=== PATIENT | female | born 1950 | race Caucasian/White ===

== ENCOUNTER 2021-10-25 00:55 | Day surgery (SDC) | payer OTHER, SELFPAY ==
[2021-10-20 12:51] VITALS: BMI 23.6
--- NOTE | 2021-10-22 13:11 | PM.HPGS ---
History of Present Illness History of Present Illness Consent: Risks, benefits, and alternatives have been discussed and questions answered. Patient agrees to proceed with procedure. Chief complaint: GERD Narrative: Celeste Doll is a 70 year old female with chronic and refractory acid reflux symptoms. She had heartburn and for years she would take Cimetidine which helped. Recently it became ineffective. She took Prilosec twice a day for 2 weeks and was okay until she stopped taking it. now she is back on it. her symptoms became worse when she began taking and antifungal medicine 4 months ago. At 1 time an ENT physician told her that she was getting laryngal spasms. She states that sometimes if she is swallowing something or has saliva she will feel her throat closing up. Review of Systems Review of Systems: All systems reviewed & are unremarkable except as noted in HPI and below PMFSH Past Medical History Medical History Allergies Anxiety Arthritis Cancer GERD (gastroesophageal reflux disease) Headache IBS (irritable bowel syndrome) Lichen sclerosus Myopic degeneration Surgical History Surgical History History of tonsillectomy X2 Hx of removal of ovary Left Family History Family History Father Diabetes mellitus Hypertension Depression Mother Pancreatic cancer Skin cancer Bladder cancer Sibling Hypertension Grandparent Pancreatic cancer Diabetes mellitus Hypertension Heart disease Social History Social History Smoking status: Never smoker Alcohol intake: never Substance use: never Substance use type: does not use Living arrangements: with family Meds Home Medications and Allergies Home Medications Medication Instructions Recorded Confirmed Type alprazolam 0.25 mg tablet 0.25 mg PO DAILY PRN 06/11/21 10/20/21 History biotin 1 mg capsule 1 mg PO DAILY 06/11/21 10/20/21 History calcium carbonate 600 mg-vitamin 1 cap PO DAILY 06/11/21 10/20/21 History D3 12.5 mcg (500 unit) capsule clobetasol 0.05 % topical cream 1 applic TOPICAL DAILY 06/11/21 10/20/21 History docusate sodium 100 mg capsule 100 mg PO DAILY 06/11/21 10/20/21 History duloxetine 60 mg capsule,delayed 60 mg PO DAILY 06/11/21 10/20/21 History release fluticasone propionate 50 2 spray INTRANASAL DAILY #16 g 06/11/21 10/20/21 Rx mcg/actuation nasal spray,suspension ibuprofen 200 mg tablet 200 mg PO Q6H PRN 06/11/21 10/20/21 History ketotifen fumarate 0.025 % (0.035 1 drp EACH EYE BID 06/11/21 10/20/21 History %) eye drops lactobacillus combination no.4 3 3,000 mmu cells PO DAILY 06/11/21 10/20/21 History billion cell capsule multivitamin 1 tablet PO DAILY 06/11/21 10/20/21 History omega-3 fatty acids 1,000 mg 1,000 mg PO DAILY 06/11/21 10/20/21 History capsule psyllium husk 0.4 gram capsule 0.4 g PO DAILY 06/11/21 10/20/21 History triamcinolone acetonide 0.1 % 1 applic TOPICAL DAILY PRN g 06/11/21 10/20/21 History topical cream omeprazole magnesium 20 mg 20 mg PO DAILY 10/15/21 10/20/21 History tablet,delayed release terazosin 1 mg capsule 1 mg PO DAILY 10/15/21 10/20/21 History terbinafine HCl 250 mg PO DAILY 10/20/21 10/20/21 History omeprazole 20 mg PO DAILY 10/25/21 10/25/21 History Allergies Allergy/AdvReac Type Severity Reaction Status Date / Time Penicillins Allergy Itchy Verified 10/20/21 12:45 swollen throat Sulfa (Sulfonamide Allergy Rash Verified 10/20/21 12:45 Antibiotics) Exam Const: General: alert Orientation/consciousness: patient oriented x3 Resp: Auscultation: clear to auscultation bilaterally Cardio: Rhythm: regular rhythm GI: GI Palp: Yes Soft to palpation and No Tenderness to palpation present (GI) Neuro: G
[2021-10-25 07:53] VITALS: BMI 22.8
[2021-10-25] MEDS: LACTATED RINGERS 1,000 ML 150 ML IV CONT (08:06)
--- NOTE | 2021-10-25 08:08 | WPDANESEPPF ---
Anes - Initial Pre Proc Eval Procedure: Operation Date: 10/25/21 09:00 Proposed Procedures p Esophagogastroduodenoscopy - Heriberto Goncalves MD Date/Time: 10/25/21 08:08 Surgeon: Heriberto Goncalves MD Pre Op Diagnosis: GERD Patient Data Age: 70 Gender: F Height: 1.52 m Weight: 53 kg Allergies Allergy/AdvReac Type Severity Reaction Status Date / Time Penicillins Allergy Itchy Verified 10/25/21 07:53 swollen throat Sulfa (Sulfonamide Allergy Rash Verified 10/25/21 07:53 Antibiotics) Home Medications Medication Instructions Recorded Confirmed Type alprazolam 0.25 mg tablet 0.25 mg PO DAILY PRN 06/11/21 10/20/21 History biotin 1 mg capsule 1 mg PO DAILY 06/11/21 10/20/21 History calcium carbonate 600 mg-vitamin 1 cap PO DAILY 06/11/21 10/20/21 History D3 12.5 mcg (500 unit) capsule clobetasol 0.05 % topical cream 1 applic TOPICAL DAILY 06/11/21 10/20/21 History docusate sodium 100 mg capsule 100 mg PO DAILY 06/11/21 10/20/21 History duloxetine 60 mg capsule,delayed 60 mg PO DAILY 06/11/21 10/20/21 History release fluticasone propionate 50 2 spray INTRANASAL DAILY #16 g 06/11/21 10/20/21 Rx mcg/actuation nasal spray,suspension ibuprofen 200 mg tablet 200 mg PO Q6H PRN 06/11/21 10/20/21 History ketotifen fumarate 0.025 % (0.035 1 drp EACH EYE BID 06/11/21 10/20/21 History %) eye drops lactobacillus combination no.4 3 3,000 mmu cells PO DAILY 06/11/21 10/20/21 History billion cell capsule multivitamin 1 tablet PO DAILY 06/11/21 10/20/21 History omega-3 fatty acids 1,000 mg 1,000 mg PO DAILY 06/11/21 10/20/21 History capsule psyllium husk 0.4 gram capsule 0.4 g PO DAILY 06/11/21 10/20/21 History triamcinolone acetonide 0.1 % 1 applic TOPICAL DAILY PRN g 06/11/21 10/20/21 History topical cream omeprazole magnesium 20 mg 20 mg PO DAILY 10/15/21 10/20/21 History tablet,delayed release terazosin 1 mg capsule 1 mg PO DAILY 10/15/21 10/20/21 History terbinafine HCl 250 mg PO DAILY 10/20/21 10/20/21 History omeprazole 20 mg PO DAILY 10/25/21 10/25/21 History Patient hx anesthesia problems: none Family hx anesthesia problems: none Results Review: All pre-operative results and documents have been reviewed as part of the pre-operative evaluation. [facility] Past Medical History Medical History Allergies Anxiety Arthritis Cancer GERD (gastroesophageal reflux disease) Headache IBS (irritable bowel syndrome) Lichen sclerosus Myopic degeneration Surgical History Surgical History History of tonsillectomy X2 Hx of removal of ovary Left Family History Family History Father Diabetes mellitus Hypertension Depression Mother Pancreatic cancer Skin cancer Bladder cancer Sibling Hypertension Grandparent Pancreatic cancer Diabetes mellitus Hypertension Heart disease Social History Social History Smoking status: Never smoker Alcohol intake: never Substance use: never Substance use type: does not use Living arrangements: with family Anes - Eval Final PreProcedure Day of Procedure 10/25/21 08:08 Patient weight: normal Heart: regular rate and rhythm Lungs: clear to auscultation Airway: Mallampati scale class II Neurological: alert and oriented Last oral intake: >/= 8 hours ASA classification: II Emergent: no Anesthetic plan: proceed Anesthesia type and monitoring: general GIVS and standard monitoring Results Review: All pre-operative results and documents have been reviewed as part of the pre-operative evaluation. Informed Consent: The patient's anesthetic plan and its attendant risks and benefits were discussed with the patient/family/POA. Questions were solicited and answers provided to the satisfaction of the patient/family/
[2021-10-25] MEDS: BENZOCAINE (*SP) 60 ML SPRAY CAN (HURRICAINE) 1 SPRAY MUCOUS MEM (08:20)
[2021-10-25 08:31] VITALS: BP 152/80; PULSE 83; RESP 24; O2SAT 100
[2021-10-25 08:41] VITALS: BP 148/88; PULSE 70; RESP 20; O2SAT 100
[2021-10-25 08:51] VITALS: BP 164/81; PULSE 78; RESP 23; O2SAT 100
== END 2021-10-25 09:25 | disposition home or self-care (01) ==
PROVIDERS: PCP Internal Medicine; Visit Provider Internal Medicine Gastroenterology
PROC: 0DJ08ZZ Inspection of Upper Intestinal Tract, Via Natural or Artificial Opening Endoscopic (ICD-10-PCS; CPT 43235; principal; 2021-10-25 09:00)
DX: K21.9 Gastro-esophageal reflux disease without esophagitis (principal); K58.9 Irritable bowel syndrome, unspecified; F41.9 Anxiety disorder, unspecified; M19.90 Unspecified osteoarthritis, unspecified site
CPT/HCPCS: 43239; 87081; J2704; J7120

== ENCOUNTER → 2022-07-25 09:12 | Outpatient (CLI) | payer OTHER, SELFPAY ==
--- NOTE | ~2022-07-25 | DEXA_ITS ---
Bone Density Report Name: SAHHBAZ CAMPUZANO Age: 71 Sex: Female Ethnicity: White Date of : 1950 Indication: postmenopausal; screening for osteoporosis; Referring Provider: Gerda Ruano Study: Bone densitometry was performed. Exam Date: July 25, 2022 Accession number: [id number] Bone Density: Region BMD T-score Z-score Classification AP Spine (L1-L4) 0.912 -1.2 1.0 Osteopenia Femoral Neck (Left) 0.636 -1.9 0.0 Osteopenia Total Hip (Left) 0.794 -1.2 0.4 Osteopenia Femoral Neck (Right) 0.673 -1.6 0.4 Osteopenia Total Hip (Right) 0.798 -1.2 0.5 Osteopenia Total Hip Mean 0.796 -1.2 0.5 Osteopenia World Health Organization criteria for BMD impression classify patients as: Normal (T-score at or above -1.0), Osteopenia (T-score between -1.0 and -2.5), or Osteoporosis (T-score at or below -2.5). 10-year Fracture Risk(1): Major Osteoporotic Fracture 11% Hip Fracture 2.4% Reported Risk Factors: [place] (), Neck BMD=0.636, BMI=23.5 (1) FRAX(R) Version 3.08. Fracture probability calculated for an untreated patient. Fracture probability may be lower if the patient has received treatment. Clinical Information Provided by Patient: Has used the following medications: Calcium, vit D included in Calcium, MTV Patient maximum height was 61 Menopause Age: 51 Drinks caffeinated beverages Onset of menses at age 12 Number of children 0 Missed period for more than 6 months in a row Impression: The patient has low bone mass, based on the Left Femoral Neck T-score. The patient has an estimated ten-year risk of hip fracture of 2.4% and an estimated ten-year risk of major fracture of 11%, based on the WHO FRAX algorithm. Discussion: BONE DENSITY IS LOW AT ONE OR MORE SKELETAL SITES. This patient's lowest T-score is low at one or more skeletal sites. It meets the World Health Organization's (WHO) criteria for ?low bone mass? (T-score between -1.0 and -2.5). The patient's 10-year risk of fracture as calculated by FRAX is less than the threshold where pharmacological therapy is recommended by the National Osteoporosis Foundation (NOF). However, all treatment decisions require clinical judgment and consideration of individual patient factors, including patient preferences, comorbidities, previous drug use, risk factors not captured in the FRAX model (e.g., frailty, falls, vitamin D deficiency, increased bone turnover, interval significant decline in bone density) and possible under or overestimation of fracture risk by FRAX. The patient should follow a healthful lifestyle (good nutrition with adequate calcium and vitamin D, and appropriate weight-bearing exercise). Follow-Up: Consider repeating this study in 2 to 3 years to reassess this patient's status, or sooner if there is some new clinical indica
== END ==
PROVIDERS: PCP Internal Medicine; Visit Provider Nurse Practitioner
DX: Z78.0 Asymptomatic menopausal state (principal); M85.89 Other specified disorders of bone density and structure, multiple sites
CPT/HCPCS: 77080

== ENCOUNTER 2023-09-28 08:22 | Outpatient (CLI) | payer OTHER, SELFPAY ==
[2023-09-28 20:59] LABS: Immunoglobulin M 28 mg/dL (40-230)
[2023-09-28 21:58] LABS: Vitamin D 25 Hydroxy 35.6 ng/mL
== END 2023-09-28 08:23 | disposition home or self-care (01) ==
LOC: ANHGOSHLAB 08:24
PROVIDERS: Clinical Nurse Specialist; PCP Internal Medicine; Visit Provider Internal Medicine
DX: R06.02 Shortness of breath (principal); I42.0 Dilated cardiomyopathy; R73.03 Prediabetes; E55.9 Vitamin D deficiency, unspecified
CPT/HCPCS: 36415; 82306; 82784; 84443

== ENCOUNTER 2023-10-03 09:07 | Outpatient (CLI) | payer OTHER, SELFPAY ==
--- NOTE | 2023-10-09 17:38 | WPDHOMESLEEP ---
Sleep Study - Home Unattended Date of Study: 10/03/23 Ordering Provider: Jonathan Camejo DO Interpreting Provider: Emeli Sheehan DO Home Sleep Study Type: Watch PAT Height: 1.52 m Weight: 53.07 kg Body Mass Index: 22.8 Neck Circumference (inches): 12 Fletcher: 6 Reason for Sleep Study Snoring, nocturnal gasping Sleep History The patient is a 72-year-old female with hypertension, congestive heart failure, GERD, anxiety, depression, seasonal allergies, irritable bowel syndrome and lichen sclerosis that had a sleep study ordered by her primary care physician for evaluation of sleep apnea. The patient occasionally awakens from sleep short of breath. She occasionally awakens at night with heartburn, belching or cough. She frequently snores and is frequently loud enough that others complain. She constantly has trouble sleeping when she has a cold. She occasionally wakes up gasping for air throughout the night. She occasionally has breathing problems at night observed by herself or others. She rarely sweats excessively at night. She occasionally has heart palpitations or irregular heartbeats during the night. She occasionally falls asleep during the day but never while driving. She occasionally experiences loss of muscle tone when extremely emotional. She occasionally has trouble at school or work due to sleepiness. She occasionally feels unable to move 1 waking up or falling asleep. She rarely experiences vivid dreamlike scenes upon awakening or falling asleep. She denies feeling afraid of going to sleep. He occasionally has nightmares and occasionally remembers her dreams. She constantly has thoughts racing through her mind. She occasionally feels sad or depressed. She constantly has anxiety. She frequently has muscular tension. She occasionally notices parts of her body jerk. She rarely kicks during the night. She occasionally has crawling and aching feelings in her legs but rarely has leg pain during the night. She occasionally grinds her teeth during sleep but rarely awakens with morning jaw pain. She occasionally is bothered by pain during the day and occasionally awakened by pain during the night. She frequently wakes up feeling stiff in the morning. She frequently wakes up with sore or achy muscles. She frequently wakes up with pain in the neck, spine and other joints. She goes to bed at 9:00 p.m. on both weekdays and weekends. It takes anywhere from 30 minutes up to several hours for her to fall asleep. She wakes up twice throughout the night to urinate and is able to fall back asleep within 15-20 minutes. She wakes up at 6:15 a.m. on both weekdays and weekends. She typically gets 6-7 hours of sleep per night. She will stay in bed for 15 minutes after waking up in the morning. She currently lives with her . She denies consuming any caffeinated beverages within 2 hours of bedtime. She denies engaging in physical exercise before bedtime. She will watch television before falling asleep. She will occasionally take naps in the afternoon or the evening and they are refreshing. She denies consuming any caffeinated beverages throughout the day. She denies tobacco, alcohol and recreational drug use. [facility] Past Medical History Medical History Allergies Anxiety Arthritis Cancer Dilated cardiomyopathy GERD (gastroesophageal reflux disease) Headache IBS (irritable bowel syndrome) Left bundle branch block Lichen sclerosus Myopic degeneration Surgical History Surgical History History of tonsillectomy X2 Hx of removal of ovary Left Family History Family History Father Diabetes mellitus Hypertension Depression Macular degeneration Mother Pancreatic cancer Skin cancer Bladder cancer Sibling Hypertension Grandparent
[2023-10-09 17:39] VITALS: BMI 22.8
== END 2023-10-05 09:14 | disposition home or self-care (01) ==
LOC: ANHCSM 09:31
PROVIDERS: PCP Internal Medicine; Visit Provider Internal Medicine
DX: R06.81 Apnea, not elsewhere classified (principal); I42.0 Dilated cardiomyopathy; R06.83 Snoring
CPT/HCPCS: 95800

== ENCOUNTER 2024-01-29 08:16 | Outpatient (CLI) | payer OTHER, SELFPAY ==
--- NOTE | ~2024-01-29 | CT_ITS ---
EXAMINATION:CT diagnostic chest wo con DATE: 01/29/2024 08:39 INDICATION: Abnormal chest radiograph. TECHNIQUE: Computed tomography (CT) of the chest was performed without intravenous contrast. Automate d exposure control and iterative reconstruction technique were employed. The dose-length product (DLP ) was 153.40 mGy-cm. COMPARISON: None. FINDINGS: There is mild scarring at the lung apices. There is mild atelectasis bilaterally. There is marked elevation of left hemidiaphragm. No pleural effusion. The heart size is normal. There is a lef t chest pacer with leads in right atrium, right ventricle, and coronary sinus. No pericardial effusio n. There are no pathologically enlarged lymph nodes. There is moderate thoracic spondylosis. IMPRESSION: 1. Marketed elevation of left hemidiaphragm and mild bilateral atelectasis. Reviewed, dictated and finalized at location A.
== END 2024-01-29 08:17 ==
LOC: GOSHIMG 08:17
PROVIDERS: PCP Internal Medicine; Visit Provider Nurse Practitioner
DX: R91.8 Other nonspecific abnormal finding of lung field (principal); R93.89 Abnormal findings on diagnostic imaging of other specified body structures
CPT/HCPCS: 71250

== ENCOUNTER 2024-02-29 13:33 | Outpatient (CLI) | payer OTHER, SELFPAY ==
--- NOTE | ~2024-02-29 | XR_ITS ---
EXAMINATION: XR sniff test with CXR2V DATE: 02/29/2024 14:15 INDICATION: Disorders of diaphragm. TECHNIQUE: 2 views of the chest were obtained. Fluoroscopy of the chest was performed during normal r espiration, deep respiration, and forceful sniffing. 156 fluoroscopic images were obtained. Fluorosco py exposure time was 0.5 minutes. COMPARISON: Chest CT 01/29/2024 FINDINGS: CHEST TWO VIEWS: There is marked elevation of left hemidiaphragm. No pneumonia, pleural effusion, or pneumothorax. The heart size is normal. There is a left chest pacer with leads in right atrium, right ventricle, and coronary sinus. CHEST FLUORO: There is marked elevation of left hemidiaphragm. The left diaphragm does not move with respiration. IMPRESSION: 1. Paralysis of left hemidiaphragm. Reviewed, dictated and finalized at location A.
== END 2024-02-29 13:34 | disposition home or self-care (01) ==
PROVIDERS: PCP Internal Medicine; Visit Provider Nurse Practitioner
DX: J98.6 Disorders of diaphragm (principal)
CPT/HCPCS: 71046; 76000

== ENCOUNTER 2024-04-08 03:23 | Emergency (ER) | payer OTHER, SELFPAY ==
--- NOTE | ~2024-04-08 | XR_ITS ---
Portable chest x-ray Comparison: None Clinical History: Chest pain Findings: Lungs are clear, without focal consolidation or pleural effusion. Elevation of the left he midiaphragm noted. Cardiomediastinal silhouette is unremarkable, with pacemaker device. Bones and so ft tissues are unremarkable. Impression: Clear lungs. Elevated left hemidiaphragm. Pacemaker device. Reviewed, dictated and finalized at location . Impression: Clear lungs. Elevated left hemidiaphragm. Pacemaker device.
--- NOTE | ~2024-04-08 | XR_ITS ---
Supine and upright views of the abdomen Clinical history: Abdominal fullness Findings: Bowel gas pattern is nonspecific. No evidence for obstruction or free air. No abnormal mass lesion or calcification is seen. Osseous structures are intact. Impression: Nonspecific bowel gas pattern. Reviewed, dictated and finalized at [facility]. Impression: Nonspecific bowel gas pattern.
[2024-04-08 03:26] VITALS: BP 146/69; PULSE 96; RESP 25; TEMP 37.8; O2SAT 98
--- NOTE | 2024-04-08 03:30 | ECG_ITS ---
Test Date: 2024-04-08 03:33:34 Measurements Intervals [place] Rate: 96 P: 43 MN: 134 QRS: -43 QRSD: 166 T: 119 QT: 385 QTc: 487 Interpretive Statements ATRIAL SENSE- ELECTRONIC VENTRICULAR PACEMAKER BASELINE ARTIFACT- II, III, AVR, AVL, AVF, V1-V6 NO FURTHER INTERPRETATION IS POSSIBLE ATYPICAL ECG No previous ECG available for comparison Electronically Signed On 04-08-2024 08:34:12 CDT by Coy Zhao D.O.
[2024-04-08 03:31] VITALS: TEMP 37.1
[2024-04-08 03:41] LABS: Basophils Percent Auto 0.3 % (0.2-1.2); Eosinophils Absolute Auto 0.3 K/mm3 (0-0.3); Eosinophils Percent Auto 1.9 % (0-4.4); Hematocrit 37.8 % (37.0-47.0); Hemoglobin 12.4 g/dL (12.0-15.0); Immature Granulocyte Absolute 0.04 K/mm3 (0.00-0.031); Immature Granulocyte Percent A 0.3 % (0-0.5); Lymphocytes Absolute Auto 1.24 K/mm3 (0.9-3.2); Lymphocytes Percent Auto 9.2 % (18.3-44.2); Mean Corpuscular HGB Conc 32.8 g/dl (32-36); Mean Corpuscular Hemoglobin 28.6 pg (26-34); Mean Corpuscular Volume 87.1 fl (80-100); Mean Platelet Volume 9.6 fl (7.4-10.4); Monocytes Absolute Auto 1.2 K/mm3 (0.1-0.6); Monocytes Percent Auto 8.8 % (2.6-8.5); Neutrophils Absolute Auto 10.7 K/mm3 (1.3-6.7); Neutrophils Percent Auto 79.5 % (45.5-73.1); Platelet Count Result 268 k/mm3 (150-375); Red Blood Count 4.34 M/mm3 (4.2-5.4); White Blood Count 13.4 K/mm3 (4.5-10.0)
[2024-04-08 04:17] LABS: Alanine Aminotransferase 16 U/L (6-35); Albumin Level 4.1 g/dL (3.5-5.1); Alkaline Phosphatase 65 U/L (38-126); Anion Gap 10 mmol/L (4-12); Aspartate Amino Transferase 21 U/L (14-36); Bilirubin,Total 0.5 mg/dL (0.2-1.3); Blood Urea Nitrogen 14 mg/dL (7-17); Calcium 9.1 mg/dL (8.4-10.2); Carbon Dioxide 26 mmol/L (22-30); Chloride 99 mmol/L (98-107); Estimated CRCL calculation 59 ml/min; Estimated Glomerular Filt Rate > 60; Glucose 144 mg/dL (65-110); Lipase 130 U/L (23-300); Potassium 3.8 mmol/L (3.4-5.0); Sodium 135 mmol/L (137-145)
[2024-04-08 04:32] LABS: Troponin I < 0.012 ng/mL (0.000-0.034)
--- NOTE | 2024-04-08 05:05 | ED.GENADULT ---
HPI - General Adult General Chief complaint: Chest Pain Stated complaint: chest pain Time Seen by Provider: 04/08/24 03:27 History of Present Illness HPI narrative: 73-year-old female presenting to the emergency department for evaluation for an episode of chest pain. Patient reports that at midnight she started developing some chest pain radiated left right side of her chest. Patient states that this started while she was lying on her right side and then spread to her left. Patient was told to take her nitro and aspirin the stomach. Patient states that initially this did not help her symptoms. Patient arrived to the emergency department by EMS. Patient states that it is her chest pain has now resolved. Patient does describe some nausea and abdominal pressure Related Data Home Medications Medication Instructions Recorded Confirmed alprazolam 0.25 mg tablet (Xanax) 0.25 mg PO DAILY PRN Anxiety 06/11/21 02/29/24 biotin 1 mg capsule 1 mg PO DAILY 06/11/21 02/29/24 calcium carbonate 600 mg-vitamin 1 cap PO DAILY 06/11/21 02/29/24 D3 12.5 mcg (500 unit) capsule (Calcium 600 with Vitamin D3) clobetasol 0.05 % topical cream 1 applic topical DAILY 06/11/21 02/29/24 docusate sodium 100 mg capsule 100 mg PO DAILY 06/11/21 02/29/24 (Stool Softener) ketotifen fumarate 0.025 % (0.035 1 drp EACH EYE BID 06/11/21 02/29/24 %) eye drops lactobacillus combination no.4 3 3,000 mmu cells PO DAILY 06/11/21 02/29/24 billion cell capsule (Probiotic) multivitamin 1 tablet PO DAILY 06/11/21 02/29/24 omega-3 fatty acids 1,000 mg 1,000 mg PO DAILY 06/11/21 02/29/24 capsule (Fish Oil Concentrate) psyllium husk 0.4 gram capsule 0.4 g PO DAILY 06/11/21 02/29/24 (Daily Fiber) triamcinolone acetonide 0.1 % 1 applic topical DAILY PRN Rash 06/11/21 02/29/24 topical cream halcinonide 0.1 % topical cream 1 applic topical BID 09/28/23 02/29/24 (Halog) metoprolol succinate 50 mg 50 mg PO DAILY 09/28/23 02/29/24 tablet,extended release 24 hr nitroglycerin 0.4 mg sublingual 0.4 mg sublingual Q5M PRN 09/28/23 02/29/24 tablet sacubitril 97 mg-valsartan 103 mg 1 tablet PO BID 09/28/23 02/29/24 tablet sertraline 50 mg tablet 50 mg PO DAILY 12/14/23 02/29/24 Bifidobacterium infantis 4 mg 4 mg PO DAILY 02/29/24 02/29/24 capsule (Align) Allergies Allergy/AdvReac Type Severity Reaction Status Date / Time Penicillins Allergy Itchy Verified 02/29/24 09:29 swollen throat Sulfa (Sulfonamide Allergy Rash Verified 02/29/24 09:29 Antibiotics) Review of Systems Review of Systems: All systems reviewed & are unremarkable except as noted in HPI and below PMFSH Past Medical History Medical History Allergies Anxiety Arthritis Cancer Dilated cardiomyopathy GERD (gastroesophageal reflux disease) Headache IBS (irritable bowel syndrome) Left bundle branch block Lichen sclerosus Myopic degeneration Surgical History Surgical History History of cardiac cath History of tonsillectomy X2 Hx of removal of ovary Left Family History Family History Father Diabetes mellitus Hypertension Depression Macular degeneration Mother Pancreatic cancer Skin cancer Bladder cancer Sibling Hypertension Grandparent Pancreatic cancer Diabetes mellitus Hypertension Heart disease Social History Social History Smoking status: Never smoker Alcohol intake: never Substance use: never Substance use type: does not use Do You Feel Safe in your Home?: Yes Lack of Transportation: No Lack of Food: Never True Current Housing: I Have Housing Concerned About Future Housing: No Difficulty Paying Gas/Electric Bills: No Difficulty Paying for Meds: No Currently Unemployed: No
[2024-04-08] MEDS: ACETAMINOPHEN 500 MG TABLET 1000 MG PO (05:11)
[2024-04-08] MEDS: ONDANSETRON INJ 4 MG/2 ML VIAL IV PUSH (05:12)
--- NOTE | 2024-04-08 06:30 | ECG_ITS ---
Test Date: 2024-04-08 06:29:34 Measurements Intervals [place] Rate: 88 P: 45 CT: 143 QRS: -53 QRSD: 160 T: 111 QT: 409 QTc: 496 Interpretive Statements ATRIAL SENSE- ELECTRONIC VENTRICULAR PACEMAKER NO FURTHER INTERPRETATION IS POSSIBLE ATYPICAL ECG Compared to ECG 04/08/2024 03:33:34 No significant changes Electronically Signed On 04-08-2024 08:37:54 CDT by Coy Zhao D.O.
--- NOTE | 2024-04-08 06:30 | PC.NURSE ---
repeat ekg done, and troponin sent to lab at this time
[2024-04-08 06:52] LABS: Troponin I < 0.012 ng/mL (0.000-0.034)
[2024-04-08 06:53] LABS: Prothrombin Time 13.4 Seconds (11.1-14.7)
[2024-04-08 06:55] LABS: Partial Thromboplastin Time 28.5 Seconds (22.3-36.8)
[2024-04-08 07:25] VITALS: BP 112/61; PULSE 88; RESP 16; O2SAT 95
== END 2024-04-08 07:27 | disposition home or self-care (01) ==
PROVIDERS: Emergency Provider Emergency Medicine; PCP Internal Medicine
DX: R07.89 Other chest pain (principal); R11.0 Nausea; I42.0 Dilated cardiomyopathy; K21.9 Gastro-esophageal reflux disease without esophagitis; K58.9 Irritable bowel syndrome, unspecified; H44.20 Degenerative myopia, unspecified eye; M19.90 Unspecified osteoarthritis, unspecified site; F41.9 Anxiety disorder, unspecified; Z95.0 Presence of cardiac pacemaker; Z90.721 Acquired absence of ovaries, unilateral; Z79.899 Other long term (current) drug therapy
CPT/HCPCS: 36415; 71045; 74019; 80053; 83690; 84484; 85025; 85610; 85730; 93005; 96374; 99284; A9270; J2405

== ENCOUNTER 2024-04-18 08:38 | Observation (INO) | payer OTHER, SELFPAY ==
[2024-04-18] VITALS (25 sets, daily range): BP systolic 121–157; BP diastolic 58–87; PULSE 102–118; RESP 15–32; TEMP 36.4–37.5; O2SAT 92–100; BMI 20.7
--- NOTE | 2024-04-18 | ECHO_ITS ---
Patient Info Name: Celeste Doll Age: 73 years : 1950 Gender: Female Ht: 60 in Wt: 114 lbs BSA: 1.49 m2 HR: 116 bpm BP: 147 / 87 mmHg Heart Rhythm: Paced Technical Quality: Fair Exam Date: 04/18/2024 3:21 PM Exam Location: Echo Lab Patient Status: Outpatient Admit Date: 04/18/2024 Staff Ordering Physician: Johanna Dee MD (trey/fidelia) Linking Machine Operator: Melani Mayfield RDCS Attending Provider: Nigel Stephens MD Referring Physician: Luiz DEE; Exam Type: CA echo doppler color flow Study Info Indications - pericardial effusion Complete two-dimensional, color flow and Doppler transthoracic echocardiogram is performed. Summary 1. Left ventricular chamber dimension is normal. 2. Left ventricular systolic function is mildly reduced, estimated at 45-50%. 3. There is mildly increased left ventricular wall thickness. 4. Right ventricular systolic function is normal. 5. There is mild mitral valve regurgitation. 6. There is a circumferential pericardial effusion, which is small-moderate in size anteriorly and moderate in size posteriorly, measuring up to 1.4cm. No echocardiographic evidence of tamponade. Left Ventricle Left ventricular chamber dimension is normal. Left ventricular systolic function is mildly reduced, estimated at 45-50%. There is mildly increased left ventricular wall thickness. Left ventricular septal wall motion is abnormal with septal motion related to pacing. Right Ventricle Linear artifact in right ventricle suggestive of catheter(s), pacemaker lead(s), or ICD lead(s). Right ventricular chamber dimension is normal. Right ventricular systolic function is normal. Left Atria Left atrial chamber dimension is normal. Right Atria Linear artifact in the right atrium suggestive of catheter(s), pacemaker lead(s), or ICD lead(s). Right atrial chamber dimension is normal. Atrial Septum Intact interatrial septum visualized by color flow imaging. Aortic Valve The aortic valve is not well visualized. There is no aortic valve stenosis. There is no aortic valve regurgitation. Pulmonic Valve The pulmonic valve is not well visualized. Mitral Valve There is mild mitral valve regurgitation. The mitral valve annulus is mildly calcified. Tricuspid Valve There is trace tricuspid valve regurgitation. Pericardium/Pleural There is a circumferential pericardial effusion, which is small-moderate in size anteriorly and moderate in size posteriorly, measuring up to 1.4cm. No echocardiographic evidence of tamponade. Inferior Vena Cava Normal inferior vena cava with >50% collapse upon inspiration consistent with normal right atrial pressure, 3 mmHg. Aorta The aortic root size at the sinus of Valsalva is normal. Left Ventricular Outflow Tract Name Value Normal LVOT Doppler LVOT Peak Velocity 83 cm/s LVOT Peak Gradient 3 mmHg LVOT Mean Gradient 2 mmHg LVOT VTI 13 cm LVOT VTI/AV VTI Ratio 1.0 Pulmonic Valve Name Value Normal PV Doppler
--- NOTE | ~2024-04-18 | CT_ITS ---
CTA chest PE protocol Ordering provider: Og Edwards History: 73 years Female with . SOB . Comparison: January 29, 2024 Technique: CT angiogram chest was performed following timed intravenous injection of contrast. Thin s lice axial images and reformatted coronal images were obtained. Three dimensional reformatted images of the chest were also obtained using a [employer] workstation. . Automated exposure control and iterati ve reconstruction technique were employed. The dose-length product was 149.51 mGy-cm. 100 mL Omnipaqu e 350 was given IV. Findings: PULMONARY ARTERIES: No pulmonary embolus. VISUALIZED THORACIC INLET: Normal. MEDIASTINUM: Aorta/coronary arteries: Mild atheromatous disease. Heart/other: The heart is slightly enlarged. Moderate pericardial effusion. Lymph nodes: No mediastinal or hilar adenopathy. LUNGS: Elevation of the left hemidiaphragm. Left lung base atelectasis versus pneumonia seen. Minimal atelectasis in the right lung base. Pleural effusions seen bilaterally more on the left side... No pulmonary nodules or masses. No pneumothorax. VISUALIZED UPPER ABDOMEN: Separate origin of the splenic and hepatic arteries with narrowing of the o rigin of the hepatic artery. Otherwise, the visualized upper abdomen is normal. MUSCULOSKELETAL: Soft tissues: The superficial soft tissues are normal. Bones: Age appropriate degenerative changes of the spine. IMPRESSION: 1. No pulmonary embolism. 2. Moderate pericardial effusion. 3. Left basal atelectasis versus pneumonia. 4. Bilateral pleural effusion more on the left side. Reviewed, dictated and finalized at location A.
--- NOTE | 2024-04-18 08:43 | ECG_ITS ---
Test Date: 2024-04-18 08:54:35 Measurements Intervals [place] Rate: 111 P: 20 MD: 136 QRS: -45 QRSD: 142 T: 125 QT: 347 QTc: 473 Interpretive Statements ATRIAL SENSE- ELECTRONIC VENTRICULAR PACEMAKER UNDERLYING SINUS TACHYCARDIA BASELINE ARTIFACT- I, II, III, AVR, AVL, AVF NO FURTHER INTERPRETATION IS POSSIBLE ABNORMAL ECG Compared to ECG 04/08/2024 06:29:34 HEART RATE HAS INCREASED Electronically Signed On 04-18-2024 08:58:29 CDT by Coy Zhao D.O.
[2024-04-18 09:15] LABS: Basophils Percent Auto 0.3 % (0.2-1.2); Eosinophils Absolute Auto 0.2 K/mm3 (0-0.3); Eosinophils Percent Auto 1.3 % (0-4.4); Hematocrit 35.6 % (37.0-47.0); Hemoglobin 11.4 g/dL (12.0-15.0); Immature Granulocyte Absolute 0.04 K/mm3 (0.00-0.031); Immature Granulocyte Percent A 0.3 % (0-0.5); Lymphocytes Absolute Auto 0.94 K/mm3 (0.9-3.2); Lymphocytes Percent Auto 7.7 % (18.3-44.2); Mean Corpuscular Hemoglobin 27.9 pg (26-34); Monocytes Absolute Auto 1.3 K/mm3 (0.1-0.6); Monocytes Percent Auto 10.5 % (2.6-8.5); Neutrophils Absolute Auto 9.8 K/mm3 (1.3-6.7); Neutrophils Percent Auto 79.9 % (45.5-73.1); Platelet Count Result 512 k/mm3 (150-375); Red Blood Count 4.09 M/mm3 (4.2-5.4); Red Cell Distribution Width 13.6 % (11.5-14.5); White Blood Count 12.3 K/mm3 (4.5-10.0)
[2024-04-18 09:23] LABS: INR 1.1; Prothrombin Time 14.8 Seconds (11.1-14.7)
[2024-04-18 09:24] LABS: Partial Thromboplastin Time 32.3 Seconds (22.3-36.8)
[2024-04-18 09:31] LABS: Alanine Aminotransferase 14 U/L (6-35); Alkaline Phosphatase 78 U/L (38-126); Anion Gap 10 mmol/L (4-12); Aspartate Amino Transferase 15 U/L (14-36); Bilirubin,Total 0.3 mg/dL (0.2-1.3); Blood Urea Nitrogen 11 mg/dL (7-17); Carbon Dioxide 25 mmol/L (22-30); Chloride 99 mmol/L (98-107); Estimated CRCL calculation 65 ml/min; Estimated Glomerular Filt Rate > 60; Glucose 122 mg/dL (65-110); Potassium 3.6 mmol/L (3.4-5.0); Sodium 134 mmol/L (137-145)
--- NOTE | 2024-04-18 09:33 | ED.SOB ---
HPI - SOB/Dyspnea General Chief Complaint: Shortness of Breath/Dyspnea <Mehran Tafoya PA-C - Last Filed: 04/18/24 14:26> Stated Complaint: sent by PCP for R/O PE <Mehran Tafoya PA-C - Last Filed: 04/18/24 14:26> Time Seen by Provider: 04/18/24 09:31 <Mehran Tafoya PA-C - Last Filed: 04/18/24 14:26> Source: patient <Mehran Tafoya PA-C - Last Filed: 04/18/24 14:26> Mode of arrival: ambulatory <Mehran Tafoya PA-C - Last Filed: 04/18/24 14:26> Limitations: no limitations <Mehran Tafoya PA-C - Last Filed: 04/18/24 14:26> History of Present Illness HPI Narrative: This is a 73-year-old female with PMH dilated cardiomyopathy, LBBB, s/p cardiac catheterization, s/p atrial pacemaker who presents to the ED for chief complaint of shortness of breath. Referred over by PCP for PE rule out. Patient reports That she has had some increasing shortness breath over the past week. States her chest pain has not been present since last week when it only last a few seconds off and on. States the dyspnea is worse with exertion and occasionally worse with laying down. patient reports a dry cough and temperature of a 101? F 2 days ago at home. Denies lower leg swelling, palpitations, productive cough , abdominal pain, nausea, vomiting, syncope. <Mehran Tafoya PA-C - Last Filed: 04/18/24 14:26> Related Data Home Medications: Home Medications Medication Instructions Recorded Confirmed alprazolam 0.25 mg tablet (Xanax) 0.25 mg PO DAILY PRN Anxiety 06/11/21 04/18/24 biotin 1 mg capsule 1 mg PO DAILY 06/11/21 04/18/24 calcium carbonate 600 mg-vitamin 1 cap PO DAILY 06/11/21 04/18/24 D3 12.5 mcg (500 unit) capsule (Calcium 600 with Vitamin D3) clobetasol 0.05 % topical cream 1 applic topical DAILY PRN eczema 06/11/21 04/18/24 docusate sodium 100 mg capsule 100 mg PO DAILY 06/11/21 04/18/24 (Stool Softener) ketotifen fumarate 0.025 % (0.035 1 drp EACH EYE BID PRN Dry Eyes 06/11/21 04/18/24 %) eye drops lactobacillus combination no.4 3 3,000 mmu cells PO DAILY 06/11/21 04/18/24 billion cell capsule (Probiotic) multivitamin 1 tablet PO DAILY 06/11/21 04/18/24 omega-3 fatty acids 1,000 mg 1,000 mg PO DAILY 06/11/21 04/18/24 capsule (Fish Oil Concentrate) psyllium husk 0.4 gram capsule 0.4 g PO DAILY 06/11/21 04/18/24 (Daily Fiber) triamcinolone acetonide 0.1 % 1 applic topical DAILY PRN Rash 06/11/21 04/18/24 topical cream halcinonide 0.1 % topical cream 1 applic topical BID PRN eczema 09/28/23 04/18/24 (Halog) metoprolol succinate 50 mg 50 mg PO DAILY 09/28/23 04/18/24 tablet,extended release 24 hr nitroglycerin 0.4 mg sublingual 0.4 mg sublingual Q5M PRN Chest 09/28/23 04/18/24 tablet Pain sacubitril 97 mg-valsartan 103 mg 1 tablet PO BID 09/28/23 04/18/24 tablet sertraline 50 mg tablet 50 mg PO DAILY 12/14/23 04/18/24 Bifidobacterium infantis 4 mg 4 mg PO DAILY 02/29/24 04/18/24 capsule (Align) fluticasone propionate 50 See Rx Instructions .Route 04/18/24 04/18/24 mcg/actuation nasal .COMPLEX PRN Congestion spray,suspension <Mehran Tafoya PA-C - Last Filed: 04/18/24 14:26> Allergies/Adverse Reactions: Allergies Allergy/AdvReac Type Severity Reaction Status Date / Time Penicillins Allergy Itchy Verified 04/18/24 08:38 swollen throat Sulfa (Sulfonamide Allergy Rash Verified 04/18/24 08:38 Antibiotics) <Mehran Tafoya PA-C - Last Filed: 04/18/24 14:26> Review of Systems Review of Systems: All systems as dictated in HPI <Mehran Tafoya PA-C - Last Filed: 04/18/24 14:26> [facility] Past Medical History Medical History: Medical History Allergies Anxiety Arthritis Cancer Dilated cardiomyopathy GERD (gastroesophageal reflux disease) Headache IBS (irritable bowel syndrome) Left bundle branch block Lichen sclerosus Myopic degeneration <Mehran Tafoya PA-C - Last
[2024-04-18 09:34] LABS: NT Pro B Type Natriuretic Pept 529 pg/mL (19.9-100)
[2024-04-18 09:53] LABS: Influenza A QL RT-PCR Negative (Negative); Influenza B QL RT-PCR Negative (Negative); RSV RNA, RT-PCR Negative (Negative); SARS-CoV-2 RNA PCR Negative (Negative)
[2024-04-18 10:40] LABS: Estimated CRCL calculation 65 ml/min; Estimated Glomerular Filt Rate > 60
[2024-04-18] MEDS: levoFLOXacin 750 MG/D5W 150 ML 750 MG/150 ML BAG 100 MG IVPB (10:42)
[2024-04-18 11:28] LABS: Add Urine Microscopic? YES; Appearance Urine Cloudy (Clear); Bacteria Urine None Seen /hpf; Bilirubin Urine Negative (Negative); Blood Urine Negative (Negative); Color Urine Yellow (Yellow); Glucose Urine UA Negative (Negative); Ketones Urine Negative (Negative); Leukocyte Esterase Ur Negative LEU/UL (Negative); Need Manual Microscopic Reviewed; Nitrate Urine Negative (Negative); Non Pathogenic Casts 0-2; Protein Urine Negative (Negative); RBC Urine 0-2 /hpf (0-2); Specific Grav Ur 1.007 (1.001-1.035); Squamous Epithelial Cell Urine None Seen /hpf (Few); Urobilinogen Urine 0.2 mg/dL (<2.0); WBC Urine 0-5 /hpf (0-3); pH Urine 7.5 (5.0-9.0)
--- NOTE | 2024-04-18 11:53 | ADMGEN ---
This patient, Celeste Doll, was admitted to 2 Medical Room 254-01. Patient/family oriented to hospital policies and general routines including ID bracelet, bed and alarms, visiting hours, pain management, procedures, bathroom and other care routines, personal items, smoking policy, room service/diet, and visiting hours. Information on how to activate the Rapid Response Team has been discussed. Patient/Family are encouraged to report perceived risks to care and to ask questions if they do not understand what they are told or what they should do.
--- NOTE | 2024-04-18 13:08 | PM.CNCAR ---
Assessment and Plan Assessment and plan (1) Pericardial effusion: Code(s): I31.39 - Other pericardial effusion (noninflammatory) Status: Acute Assessment and Plan: Will obtain a transthoracic echocardiogram for further clarification. (2) Dyspnea: Qualifiers: Dyspnea type: unspecified Qualified Code(s): R06.00 - Dyspnea, unspecified Code(s): R06.00 - Dyspnea, unspecified Status: Acute Assessment and Plan: Does report having fevers at home along with a cough, therefore, agree with antibiotic treatment for pneumonia. Moderate sized pericardial effusion noted on CT scan, however, will obtain TTE for further clarification on size of pericardial effusion. Clinically, patient is not in tamponade. CT scan does show bilateral pleural effusions more on the left side, which could be contributing to her symptoms. Will give her a one time dose of Lasix 20mg IV to see if this improves her symptoms. 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 Her device interrogations show well functioning INVENTORY SPECIALIST-D device, so unlikely that her left hemidiaphragm paralysis is a complication from that. CT chest without contrast in January 2024 did not show any intrathoracic malignancy. Recommend PFTs as an outpatient. (3) Heart failure with mildly reduced ejection fraction: Code(s): I50.22 - Chronic systolic (congestive) heart failure Status: Acute Assessment and Plan: Continue home Entresto and Metoprolol. History of Present Illness History of Present Illness Consult date/time: 04/18/24 13:08 Requesting physician: Mehran Tafoya PA-C Consult reason: Other (Pericardial effusion) Reason For Visit: pericardial effusion,pneumonia Narrative: This is a 73 year old female with heart failure with reduced LVEF s/p INVENTORY SPECIALIST-D, hypertension, hyperlipidemia, left bundle branch block. In February 2024 she underwent atrial lead revision. Patient presented to [place] ED today after being seen at PCP's office for shortness of breath. Was sent to ED for concern for PE. CTA showed no pulmonary embolism, but does show moderate pericardial effusion, left basal atelectasis versus pneumonia, bilateral pleural effusions more on the left side. Her last echocardiogram in December 2023 showed LVEF 45-50%, mild MR, mild TR, mild IL. No significant pericardial effusion. Patient reports shortness of breath, sometimes at rest, and with activity along with cough. Reports she sometimes has clear mucus production with her cough. Does report having fevers at home recently. Does not think she has been exposed to anyone that's been sick. Workup shows leukocytosis of 12.3. BNP elevated at 529. Does report having some chest wall pain/irritation at her device site, but device site has been healing well. Review of Systems Review of Systems: All systems reviewed & are unremarkable except as noted in HPI and below (HPI) [facility] [place] Past Medical History Medical History Allergies Anxiety Arthritis Cancer Dilated cardiomyopathy GERD (gastroesophageal reflux disease) Headache IBS (irritable bowel syndrome) Left bundle branch block Lichen sclerosus Myopic degeneration Surgical History Surgical History History of cardiac cath History of tonsillectomy X2 Hx of removal of ovary Left Family History Family History Father Diabetes mellitus Hypertension Depression Macular degeneration Mother Pancreatic cancer Skin cancer Bladder cancer Sibling Hypertension Grandparent Pancreatic cancer Diabetes mellitus Hypertension Heart disease Social History Social History Smoking status: Never smoker Alcohol intake: never Substance use: never Substance use type: does n
[2024-04-18] MEDS: FUROSEMIDE INJ 40 MG/4 ML VIAL 20 MG IV PUSH (13:42)
--- NOTE | 2024-04-18 15:17 | PM.IMHP ---
H&P: HPI History of Present Illness Date/Time: 04/18/24 15:17 Chief Complaint: Shortness of breath Narrative: A very pleasant 73-year-old female accompanied by her who presents with shortness of breath increasing over the past week. She presented to her PCP was subsequently sent to [place] [facility]. She has a history of heart failure with reduced left ventricular ejection fraction status post CEMETERY MANAGER-D, left hemidiaphragmatic paralysis hypertension, hyperlipidemia, left bundle branch block, GERD, IBS. In February 2024 she underwent atrial lead revision and at that time she developed left diaphragm paralysis. In the past week or so she has also developed cough productive of clear sputum along with nasal drainage into her throat. She reports temperature of 101? F 2 days prior to admission. [place] [facility] evaluation demonstrated white blood cell count [id number], negative quad viral PCR screen, chest CTA demonstrates elevation of left hemidiaphragm, no PE, moderate pericardial effusion, left basilar atelectasis versus pneumonia. Bilateral pleural effusion more on the left side. Review of Systems Review of Systems: All systems reviewed & are unremarkable except as noted in HPI and below (Subjective) [facility] Past Medical History Medical History Allergies Anxiety Arthritis Cancer Dilated cardiomyopathy GERD (gastroesophageal reflux disease) Headache IBS (irritable bowel syndrome) Left bundle branch block Lichen sclerosus Myopic degeneration Surgical History Surgical History History of cardiac cath History of tonsillectomy X2 Hx of removal of ovary Left Family History Family History Father Diabetes mellitus Hypertension Depression Macular degeneration Mother Pancreatic cancer Skin cancer Bladder cancer Sibling Hypertension Grandparent Pancreatic cancer Diabetes mellitus Hypertension Heart disease Social History Social History Smoking status: Never smoker Alcohol intake: never Substance use: never Substance use type: does not use Do You Feel Safe in your Home?: Yes Lack of Transportation: No Lack of Food: Never True Current Housing: I Have Housing Concerned About Future Housing: No Difficulty Paying Gas/Electric Bills: No Difficulty Paying for Meds: No Currently Unemployed: No Education: Bachelor's Degree Difficulty w/ Childcare or Family Care: No Living arrangements: with family Spiritual care concerns: No Meds Home Medications and Allergies Home Medications Medication Instructions Recorded Confirmed Type alprazolam 0.25 mg tablet (Xanax) 0.25 mg PO DAILY PRN Anxiety 06/11/21 04/18/24 History biotin 1 mg capsule 1 mg PO DAILY 06/11/21 04/18/24 History calcium carbonate 600 mg-vitamin 1 cap PO DAILY 06/11/21 04/18/24 History D3 12.5 mcg (500 unit) capsule (Calcium 600 with Vitamin D3) clobetasol 0.05 % topical cream 1 applic topical DAILY PRN eczema 06/11/21 04/18/24 History docusate sodium 100 mg capsule 100 mg PO DAILY 06/11/21 04/18/24 History (Stool Softener) ketotifen fumarate 0.025 % (0.035 1 drp EACH EYE BID PRN Dry Eyes 06/11/21 04/18/24 History %) eye drops lactobacillus combination no.4 3 3,000 mmu cells PO DAILY 06/11/21 04/18/24 History billion cell capsule (Probiotic) multivitamin 1 tablet PO DAILY 06/11/21 04/18/24 History omega-3 fatty acids 1,000 mg 1,000 mg PO DAILY 06/11/21 04/18/24 History capsule (Fish Oil Concentrate) psyllium husk 0.4 gram capsule 0.4 g PO DAILY 06/11/21 04/18/24 History (Daily Fiber) triamcinolone acetonide 0.1 % 1 applic topical DAILY PRN Rash 06/11/21 04/18/24 History topical cream halcinonide 0.1 % topical cream 1 applic topical BID PRN eczema 09/28/23 04/18/24 History (Halog) met
[2024-04-18] MEDS: SACUBITRIL/VALSARTAN 97-103 MG TABLET 1 TAB PO (20:40)
[2024-04-18] MEDS: ALPRAZolam (*CRX) 0.25 MG TABLET PO (23:22)
[2024-04-19] VITALS: PULSE 99
[2024-04-19 04:00] VITALS: PULSE 95
[2024-04-19 05:35] LABS: Basophils Percent Auto 0.5 % (0.2-1.2); Eosinophils Absolute Auto 0.2 K/mm3 (0-0.3); Hematocrit 32.4 % (37.0-47.0); Hemoglobin 10.8 g/dL (12.0-15.0); Immature Granulocyte Absolute 0.02 K/mm3 (0.00-0.031); Immature Granulocyte Percent A 0.3 % (0-0.5); Lymphocytes Percent Auto 15.4 % (18.3-44.2); Mean Corpuscular HGB Conc 33.3 g/dl (32-36); Mean Corpuscular Hemoglobin 28.6 pg (26-34); Mean Corpuscular Volume 85.7 fl (80-100); Mean Platelet Volume 9.1 fl (7.4-10.4); Monocytes Absolute Auto 0.8 K/mm3 (0.1-0.6); Monocytes Percent Auto 10.3 % (2.6-8.5); Neutrophils Absolute Auto 5.5 K/mm3 (1.3-6.7); Neutrophils Percent Auto 70.5 % (45.5-73.1); Platelet Count Result 447 k/mm3 (150-375); Red Blood Count 3.78 M/mm3 (4.2-5.4); Red Cell Distribution Width 13.6 % (11.5-14.5); White Blood Count 7.8 K/mm3 (4.5-10.0)
[2024-04-19 05:53] VITALS: BP 122/59; PULSE 88; RESP 18; TEMP 36.8; O2SAT 96
[2024-04-19 05:53] LABS: Anion Gap 7 mmol/L (4-12); Blood Urea Nitrogen 8 mg/dL (7-17); Calcium 8.7 mg/dL (8.4-10.2); Carbon Dioxide 26 mmol/L (22-30); Chloride 100 mmol/L (98-107); Estimated CRCL calculation 65 ml/min; Estimated Glomerular Filt Rate > 60; Glucose 111 mg/dL (65-110); Potassium 3.8 mmol/L (3.4-5.0); Sodium 133 mmol/L (137-145)
[2024-04-19 08:00] VITALS: PULSE 116
--- NOTE | 2024-04-19 08:15 | PM.IMPN ---
Progress Note: A&P Assessment and Plan (1) Pneumonia: Code(s): J18.9 - Pneumonia, unspecified organism Status: Acute Assessment and Plan: 04/19/24: Chest CTA showing left basal atelectasis versus pneumonia, bilateral pleural effusion more on the left side was negative for PE Patient was started on Levaquin (2) Pericardial effusion: Code(s): I31.39 - Other pericardial effusion (noninflammatory) Status: Acute Assessment and Plan: 04/19/24: CTA of the chest showing moderate pericardial effusion Echo results pending Cardiology consulted Patient was given 20 mg of IV Lasix Continue cardiac monitoring (3) Pleural effusion: Code(s): J90 - Pleural effusion, not elsewhere classified Status: Acute Assessment and Plan: 04/19/24: Chest CTA showing bilateral pleural effusion left greater than right (4) Heart failure with mildly reduced ejection fraction: Code(s): I50.22 - Chronic systolic (congestive) heart failure Status: Acute Assessment and Plan: 04/19/24: Awaiting echo Patient has history heart failure with reduced ejection fraction Daily weights Strict I&O Time Spent With Patient Time with patient: Greater than 35 minutes Subjective Date/time seen: 04/19/24 08:15 Interval history: Interval history: This is a 73-year-old female who presented to the hospital on 04/18/2024 with complaints of shortness of breath. Workup in the hospital included a chest CTA which was negative for PE, moderate pericardial effusion, left basal atelectasis versus pneumonia, bilateral pleural effusion more on the left side. Initial labs shown a white blood cell count of 12.3, hemoglobin 11.4, INR 1.1, sodium 134, proBNP 529, procalcitonin 0.0. UA was negative. Respiratory panel was negative for influenza a and B, RSV, COVID. Echocardiogram pending. Patient was given 20 mg of IV Lasix and started on Levaquin. Cardiology was consulted. Patient denies. Patient endorses. Review of Systems Review of Systems: All systems reviewed & are unremarkable except as noted in HPI and below Constitutional: Constitutional: Reports as per HPI and Reports no additional constitutional complaints Eyes: Eyes: Reports as per HPI and Reports no additional eye complaints ENT: Reports system reviewed and no additional complaints, except as documented and Reports as per HPI Cardiovascular: Cardiovascular: Reports as per HPI and Reports no additional cardiovascular complaints Respiratory: Respiratory: Reports as per HPI and Reports no additional respiratory complaints Gastrointestinal: Gastrointestinal: Reports as per HPI and Reports no additional gastrointestinal complaints Genitourinary: Genitourinary: Reports no additional female genitourinary complaints and Reports as per HPI Musculoskeletal: Musculoskeletal: Reports no additional musculoskeletal complaints and Reports as per HPI Integumentary/Breasts: Skin/Breast: Reports system reviewed and no additional complaints, except as docu and Reports as per HPI Neurologic: Reports system reviewed and no additional complaints, except as documented and Reports as per HPI Psychiatric: Psychiatric: Reports no additional psychiatric complaints and Reports as per HPI Exam Narrative: General: In no acute distress, well nourished Head: atraumatic, no encephalopathy Eyes: EOMI, PERRLA, sclera clear ENT: moist mucous membranes, nasal passages clear Neck: supple, no JVD, no adenopathy, trachea midline Cardiac: Normal S1 and S2. No murmur, gallops or friction rubs, peripheral pulses intact. Respiratory: Lungs clear to auscultation, no adventitious lung sounds Gastrointestinal: soft, non-distended, non-tender, normoactive bowel sounds. : voiding without difficulty. Extremities: moves all extremities well, no edema, good ROM, strength 5/5 Skin: clean, dry, intact. No wounds or lesions. Neuro: Alert and oriented x4, cranial nerves inta
[2024-04-19 08:28] VITALS: PULSE 88
[2024-04-19] MEDS: SERTRALINE HCL 50 MG TABLET PO (08:28)
[2024-04-19] MEDS: SACUBITRIL/VALSARTAN 97-103 MG TABLET 1 TAB PO (08:28)
[2024-04-19] MEDS: FLUTICASONE PROPIONATE 0.05% NA SPR 16 GM BTL (*BKC) 2 SPRAY NASAL (08:28)
[2024-04-19] MEDS: PANTOPRAZOLE SOD SESQUIHYDRATE 20 MG TAB PO (08:28)
[2024-04-19] MEDS: OMEGA 3 POLYUNSAT FATTY ACIDS 1 GM CAP PO (08:28)
[2024-04-19] MEDS: METOPROLOL SUCCINATE EXT REL 50 MG TABCR PO (08:28)
[2024-04-19] MEDS: DOCUSATE SODIUM 100 MG CAPSULE PO (08:28)
[2024-04-19] MEDS: MULTIVITAMINS THERAPEUTIC TAB (*BKC) 1 TABLET PO (08:28)
[2024-04-19] MEDS: CALCIUM/VITAMIN D 500 MG/5 MCG (200 I.U.) TABLET PO (08:28)
--- NOTE | 2024-04-19 09:27 | ECG_ITS ---
Test Date: 2024-04-19 10:51:40 Measurements Intervals [place] Rate: 93 P: 22 SC: 119 QRS: -44 QRSD: 166 T: 118 QT: 389 QTc: 485 Interpretive Statements ATRIAL SENSE- ELECTRONIC VENTRICULAR PACEMAKER NO FURTHER INTERPRETATION IS POSSIBLE BASELINE ARTIFACT- I, II, III, AVR, AVL, AVF ATYPICAL ECG Compared to ECG 04/18/2024 08:54:35 Sinus tachycardia no longer present Electronically Signed On 04-19-2024 11:42:41 CDT by Coy Zhao D.O.
--- NOTE | 2024-04-19 09:30 | PM.PNCARD ---
Progress Note: A&P Assessment and Plan (1) Pericardial effusion: Code(s): I31.39 - Other pericardial effusion (noninflammatory) Status: Acute Assessment and Plan: Moderate sized pericardial effusion noted on CT scan. Transthoracic echocardiogram with moderate pericardial effusion. There is no echocardiographic evidence of tamponade. Patient is not in clinical tamponade. No symptoms consistent with pericarditis. The pericardial effusion does not need intervention. Will plan for follow up outpatient echocardiogram for follow up on the effusion. (2) Dyspnea: Qualifiers: Dyspnea type: unspecified Qualified Code(s): R06.00 - Dyspnea, unspecified Code(s): R06.00 - Dyspnea, unspecified Status: Acute Assessment and Plan: Does report having fevers at home along with a cough, therefore, agree with antibiotic treatment for pneumonia. Moderate sized pericardial effusion noted on CT scan. Transthoracic echocardiogram with moderate pericardial effusion. There is no echocardiographic evidence of tamponade. Patient is not in clinical tamponade. No symptoms consistent with pericarditis. The pericardial effusion does not need intervention. Will plan for follow up outpatient echocardiogram for follow up on the effusion. CT scan does show bilateral pleural effusions more on the left side, which could be contributing to her symptoms. Gave her a one time dose of Lasix 20mg IV 04/18 with good urine output. 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 CT chest without contrast in January 2024 did not show any intrathoracic malignancy. Recommend PFTs as an outpatient. Will also have her device interrogated to rule out underlying arrhythmias. (3) Heart failure with mildly reduced ejection fraction: Code(s): I50.22 - Chronic systolic (congestive) heart failure Status: Acute Assessment and Plan: Continue home Entresto and Metoprolol. 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 In February 2024 she underwent atrial lead revision. Patient presented to [place] ED today after being seen at PCP's office for shortness of breath. Was sent to ED for concern for PE. CTA showed no pulmonary embolism, but does show moderate pericardial effusion, left basal atelectasis versus pneumonia, bilateral pleural effusions more on the left side. Her last echocardiogram in December 2023 showed LVEF 45-50%, mild MR, mild TR, mild ME. No significant pericardial effusion. Patient reports shortness of breath, sometimes at rest, and with activity along with cough. Reports she sometimes has clear mucus production with her cough. Does report having fevers at home recently. Does not think she has been exposed to anyone that's been sick. Workup shows leukocytosis of 12.3. BNP elevated at 529. Does report having some chest wall pain/irritation at her device site, but device site has been healing well. Date of service 04/19: Feeling better today, still with some shortness of breath and cough. Review of Systems Review of Systems: All systems reviewed & are unremarkable except as noted in HPI and below (HPI) Exam Const: General: comfortable and no acute distress HENMT: Mouth: Yes moist mucous membranes Eyes: General: appearance normal, both eyes and all related structures Sclera: sclerae normal Neck: Neck: supple Chest: Other: Device site appears well Resp: Effort & Inspection: normal respiratory effort Auscultation: clear to auscultation bilaterally Cardio: Rate: tachycardic Rhythm: regular rhythm Heart sounds: no murm
[2024-04-19] MEDS: levoFLOXacin 750 MG/D5W 150 ML 750 MG/150 ML BAG 100 MG IVPB (11:23)
--- NOTE | 2024-04-19 14:13 | PM.DS ---
DS: Admitting Diagnosis Discharge Date 04/19/24 Admitting Diagnosis Pericardial effusion Pleural effusion Pneumonia Upper respiratory infection Heart failure with mildly reduced ejection fraction Tachycardia Dyspnea Elevated hemidiaphragm Leukocytosis DS: Summary Hospital Course Reason for hospitalization: Pericardial effusion Pleural effusion Pneumonia Upper respiratory infection Heart failure with mildly reduced ejection fraction Tachycardia Dyspnea Elevated hemidiaphragm Leukocytosis Hospital Course: This is a 73-year-old female who presented to the hospital on 04/18/2024 with complaints of shortness of breath. Workup in the hospital included a chest CTA which was negative for PE, moderate pericardial effusion, left basal atelectasis versus pneumonia, bilateral pleural effusion more on the left side. Initial labs shown a white blood cell count of 12.3, hemoglobin 11.4, INR 1.1, sodium 134, proBNP 529, procalcitonin 0.0. UA was negative. Respiratory panel was negative for influenza a and B, RSV, COVID. Echocardiogram showing small to moderate pericardial effusion. Patient was given 20 mg of IV Lasix and started on Levaquin. Cardiology was consulted and pacemaker was interrogated with no issues to report. Patient will need up Cardiology in a weeks. She was started on Lasix 20 mg p.r.n. and instructed to check her weight daily and use the Lasix as needed based on her daily weights. She is also being started on Levaquin for pneumonia and will need to finish her antibiotic and then follow up with her primary care physician in 1 week. Final diagnosis: Pericardial effusion, pneumonia, heart failure with mildly reduced ejection fraction Time Spent with Patient Time attestation: Total time spent providing and/or coordinating discharge services: Exam Narrative: General: In no acute distress, well nourished Head: atraumatic, no encephalopathy Eyes: EOMI, PERRLA, sclera clear ENT: moist mucous membranes, nasal passages clear Neck: supple, no JVD, no adenopathy, trachea midline Cardiac: Normal S1 and S2. RRR, murmur noted, no gallops or friction rubs, peripheral pulses intact. Respiratory: Lungs clear to auscultation, no adventitious lung sounds, currently on room air Gastrointestinal: soft, non-distended, non-tender, normoactive bowel sounds. : voiding without difficulty. Extremities: moves all extremities well, no edema Skin: clean, dry, intact. No wounds or lesions. Neuro: Alert and oriented x4, cranial nerves intact, no neuro deficits. Psych: normal mood, normal affect, interactive DS: Data Data Completed and Pending Completed studies during hospitalization: Chest CTA Pending studies at discharge: None Labs on day of discharge: Labs from last 24 hours 04/19/24 05:05 WBC 7.8 RBC 3.78 L Hgb 10.8 L Hct 32.4 L MCV 85.7 MCH 28.6 MCHC 33.3 RDW 13.6 Plt Count 447 H MPV 9.1 Immature Gran % (Auto) 0.3 Neut % (Auto) 70.5 Lymph % (Auto) 15.4 L [place] % (Auto) 10.3 H Eos % (Auto) 3.0 Baso % (Auto) 0.5 Lymph # (Auto) 1.20 [place] # (Auto) 0.8 H Eos # (Auto) 0.2 Baso # (Auto) 0.0 Abs Immat Gran (auto) 0.02 Absolute Neuts (auto) 5.5 Absolute Nucleated RBC 0.000 Nucleated RBC % 0.0 Sodium 133 L Potassium 3.8 Chloride 100 Carbon Dioxide 26 Anion Gap 7 BUN 8 Creatinine 0.50 L Estim Creat Clear Calc 65 Estimated GFR > 60 Glucose 111 H Calcium 8.7 Magnesium 2.0 Procalcitonin 0.0 Procedures/Treatments: None Discharge Plan Discharge Attending physician on discharge: Nigel Stephens Consulting providers: Johanna Dee; Reyna Hassan Discharging Clinician: Reyna Hassan Anticipated Discharge Date/Time: 04/19/24 13:11 Patient Disposition: Home, Self-Care Activity: as tolerated Diet: as tolerated Discharge Instructions: Cardiology will call you for your follow up appointment. Take medications as prescribed Maintain a cardiac diet,
== END 2024-04-19 15:22 | disposition home or self-care (01) ==
LOC: ANHED 10:16 → ANH2MED 11:34
PROVIDERS: Emergency Medicine; General Practice; Admitting Provider Internal Medicine; Emergency Provider Physician Assistant; PCP Internal Medicine; Visit Provider Internal Medicine
DX: I31.39 Other pericardial effusion (noninflammatory) (principal); J18.9 Pneumonia, unspecified organism; J90 Pleural effusion, not elsewhere classified; J06.9 Acute upper respiratory infection, unspecified; R00.0 Tachycardia, unspecified; J98.6 Disorders of diaphragm; I50.22 Chronic systolic (congestive) heart failure; R06.02 Shortness of breath; I42.0 Dilated cardiomyopathy; F41.9 Anxiety disorder, unspecified; E78.5 Hyperlipidemia, unspecified; I44.7 Left bundle-branch block, unspecified; K21.9 Gastro-esophageal reflux disease without esophagitis; K58.9 Irritable bowel syndrome, unspecified; Z20.822 Contact with and (suspected) exposure to COVID-19; Z95.0 Presence of cardiac pacemaker
CPT/HCPCS: 36415; 71275; 80048; 80053; 81001; 82565; 83735; 83880; 84145; 85025; 85610; 85730; 87637; 93005; 93306; 96374; 96375; 96376; 99285; A9270; G0378; J1940; J1956; Q9967

== ENCOUNTER 2024-04-30 10:57 | Outpatient (CLI) | payer OTHER, SELFPAY ==
--- NOTE | ~2024-04-30 | XR_ITS ---
XR chest 2V 04/30/2024 11:21 Indication: Pneumonia. Cough and fever. Procedure: PA and lateral views of the chest Comparison: 04/08/2024 Findings: Elevated left diaphragm. Small left pleural effusion. Cardiomegaly. Pacemaker leads are sta ble. No focal pneumonia, edema or pneumothorax. Impression: 1: Small left pleural effusion. 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 Reviewed, dictated and finalized at location B. Impression: 1: Small left pleural effusion. 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
== END 2024-04-30 10:58 | disposition home or self-care (01) ==
PROVIDERS: PCP Internal Medicine; Visit Provider Nurse Practitioner
DX: J18.9 Pneumonia, unspecified organism (principal); J90 Pleural effusion, not elsewhere classified
CPT/HCPCS: 71046

== ENCOUNTER 2024-04-30 15:17 | Outpatient (CLI) | payer OTHER, SELFPAY ==
[2024-04-30 16:10] LABS: Basophils Percent Auto 0.3 % (0.2-1.2); Eosinophils Absolute Auto 0.1 K/mm3 (0-0.3); Eosinophils Percent Auto 0.8 % (0-4.4); Hematocrit 31.4 % (37.0-47.0); Hemoglobin 10.3 g/dL (12.0-15.0); Immature Granulocyte Absolute 0.07 K/mm3 (0.00-0.031); Immature Granulocyte Percent A 0.6 % (0-0.5); Lymphocytes Absolute Auto 1.59 K/mm3 (0.9-3.2); Lymphocytes Percent Auto 12.9 % (18.3-44.2); Mean Corpuscular HGB Conc 32.8 g/dl (32-36); Mean Corpuscular Hemoglobin 27.7 pg (26-34); Mean Corpuscular Volume 84.4 fl (80-100); Mean Platelet Volume 8.8 fl (7.4-10.4); Monocytes Percent Auto 8.1 % (2.6-8.5); Neutrophils Absolute Auto 9.5 K/mm3 (1.3-6.7); Neutrophils Percent Auto 77.3 % (45.5-73.1); Platelet Count Result 562 k/mm3 (150-375); Red Blood Count 3.72 M/mm3 (4.2-5.4); Red Cell Distribution Width 13.9 % (11.5-14.5); White Blood Count 12.3 K/mm3 (4.5-10.0)
[2024-04-30 16:10] LABS: Add Urine Microscopic? NO; Appearance Urine Clear (Clear); Bilirubin Urine Negative (Negative); Blood Urine Negative (Negative); Color Urine Yellow (Yellow); Glucose Urine UA Negative (Negative); Ketones Urine Negative (Negative); Leukocyte Esterase Ur Negative LEU/UL (Negative); Nitrate Urine Negative (Negative); Protein Urine Negative (Negative); Specific Grav Ur 1.009 (1.001-1.035); Urobilinogen Urine 0.2 mg/dL (<2.0); pH Urine 6.5 (5.0-9.0)
[2024-04-30 16:41] LABS: Erythrocyte Sedimentation Rate 95 mm/hr (0-20)
== END 2024-04-30 15:18 | disposition home or self-care (01) ==
LOC: ANHLAB 15:20
PROVIDERS: PCP Internal Medicine; Visit Provider Internal Medicine
DX: D72.829 Elevated white blood cell count, unspecified (principal); R50.9 Fever, unspecified; D64.9 Anemia, unspecified; J18.9 Pneumonia, unspecified organism
CPT/HCPCS: 36415; 81003; 82728; 85025; 85652; 87040

== ENCOUNTER 2024-04-30 17:57 | Observation (INO) | payer OTHER, SELFPAY ==
--- NOTE | ~2024-04-30 | CT_ITS ---
Clinical Indication: Cough, fever CT Scan of the Chest with Contrast: Technique: Contiguous sections were acquired throughout the chest after intravenous administration of 75 cc of Omnipaque 350. Dose reduction technique was used on this scan by utilizing automated exposu re control and iterative reconstruction technique. The dose-length product (DLP) was 131.28 mGy-cm. COMPARISON: 04/18/2024 Findings: There is no evidence of any significant mediastinal, hilar or axillary lymphadenopathy. There is no f illing defect in the pulmonary arterial tree to suggest pulmonary embolus. There is no evidence of ao rtic dissection or aneurysm. Small pericardial effusion present. Small left pleural effusion present. Minimal right pleural fluid present.. The lungs are clear, aside from mild bibasilar atelectatic change, worse than right. Images through the upper abdomen reveal no abnormalities. Impression: Small left pleural effusion and minimal right pleural effusion, with mild bibasilar atelectatic pereira e. Small pericardial effusion. Reviewed, dictated and finalized at location . Impression: Small left pleural effusion and minimal right pleural effusion, with mild bibas ilar atelectatic change. Small pericardial effusion.
--- NOTE | ~2024-04-30 | XR_ITS ---
EXAMINATION: XR chest 2V Exam Date/Time: 04/30/2024 18:15 CDT HISTORY: hx pneumonia, fever, CP FOR 2 DAYS, PACEMAKER 01/16 Comparison: 04/30/2024 11:10 AM. RESULT: Lines, tubes, and devices: Left chest pacer/AICD with intact leads. Lungs and pleura: Persistent left hemidiaphragm elevation and left basilar atelectasis. Right lower lung granuloma. Minimal left costophrenic angle blunting. Cardiomediastinal silhouette: Stable. Other: No acute osseous or upper abdominal finding. IMPRESSION: Unchanged left hemidiaphragm elevation with left basilar atelectasis and chronic pleural blunting yayo jose a trace left pleural effusion. Reviewed, dictated and finalized at location K. IMPRESSION: Unchanged left hemidiaphragm elevation with left basilar atelectasis and chroni c pleural blunting versus a trace left pleural effusion.
[2024-04-30 18:00] VITALS: BP 115/62; PULSE 107; RESP 20; TEMP 36.3; O2SAT 99
[2024-04-30 23:15] VITALS: BP 143/66; PULSE 88; RESP 14; TEMP 36.6; O2SAT 98
--- NOTE | 2024-04-30 23:18 | ED.RECABL ---
HPI - Recheck/Abnormal Lab/Rx General Chief Complaint: Recheck/Abnormal Lab/Rx Stated Complaint: sent by PCP Time Seen by Provider: 04/30/24 23:04 Source: patient Mode of arrival: ambulatory Limitations: no limitations History of Present Illness HPI narrative: This is a 73-year-old female who presents to the ED after referral from PCP, Dr. Camejo for chief complaint of fevers and fatigue. Patient states that she was admitted recently for pneumonia and was feeling better on antibiotics overall. States in the last few days she has had increasing cough and fevers up to 100.8? F at home. States that she saw her doctor who ordered labs today. Her PCP was concerned because her ESR is white count or elevated again. She is stating that he would like her to be seen again in the hospital and investigated for possible bacteremia or infection of the heart. Patient received pacemaker revision in February 2024. PCP is concerned also for possible infection of pacemaker wire. Related Data Home Medications Medication Instructions Recorded Confirmed alprazolam 0.25 mg tablet (Xanax) 0.25 mg PO DAILY PRN Anxiety 06/11/21 04/18/24 biotin 1 mg capsule 1 mg PO DAILY 06/11/21 04/18/24 calcium carbonate 600 mg-vitamin 1 cap PO DAILY 06/11/21 04/18/24 D3 12.5 mcg (500 unit) capsule (Calcium 600 with Vitamin D3) clobetasol 0.05 % topical cream 1 applic topical DAILY PRN eczema 06/11/21 04/18/24 docusate sodium 100 mg capsule 100 mg PO DAILY 06/11/21 04/18/24 (Stool Softener) ketotifen fumarate 0.025 % (0.035 1 drp EACH EYE BID PRN Dry Eyes 06/11/21 04/18/24 %) eye drops lactobacillus combination no.4 3 3,000 mmu cells PO DAILY 06/11/21 04/18/24 billion cell capsule (Probiotic) multivitamin 1 tablet PO DAILY 06/11/21 04/18/24 omega-3 fatty acids 1,000 mg 1,000 mg PO DAILY 06/11/21 04/18/24 capsule (Fish Oil Concentrate) psyllium husk 0.4 gram capsule 0.4 g PO DAILY 06/11/21 04/18/24 (Daily Fiber) triamcinolone acetonide 0.1 % 1 applic topical DAILY PRN Rash 06/11/21 04/18/24 topical cream halcinonide 0.1 % topical cream 1 applic topical BID PRN eczema 09/28/23 04/18/24 (Halog) nitroglycerin 0.4 mg sublingual 0.4 mg sublingual Q5M PRN Chest 09/28/23 04/18/24 tablet Pain sacubitril 97 mg-valsartan 103 mg 1 tablet PO BID 09/28/23 04/18/24 tablet Bifidobacterium infantis 4 mg 4 mg PO DAILY 02/29/24 04/18/24 capsule (Align) fluticasone propionate 50 See Rx Instructions .Route 04/18/24 04/18/24 mcg/actuation nasal .COMPLEX PRN Congestion spray,suspension metoprolol succinate 50 mg 75 mg PO DAILY 04/30/24 tablet,extended release 24 hr sertraline 50 mg tablet 75 mg PO DAILY 04/30/24 Allergies Allergy/AdvReac Type Severity Reaction Status Date / Time Penicillins Allergy Itchy Verified 04/30/24 14:22 swollen throat Sulfa (Sulfonamide Allergy Rash Verified 04/30/24 14:22 Antibiotics) Review of Systems Review of Systems: All systems as dictated in [facility] Past Medical History Medical History Allergies Anxiety Arthritis Cancer Dilated cardiomyopathy GERD (gastroesophageal reflux disease) Headache IBS (irritable bowel syndrome) Left bundle branch block Lichen sclerosus Myopic degeneration Surgical History Surgical History History of cardiac cath History of tonsillectomy X2 Hx of removal of ovary Left Family History Family History Father Diabetes mellitus Hypertension Depression Macular degeneration Mother Pancreatic cancer Skin cancer Bladder cancer Sibling Hypertension Grandparent Pancreatic cancer Diabetes mellitus Hypertension Heart disease Social History Social History Smoking status: Never smoker Alcohol intake: ne
[2024-05-01 00:31] LABS: Basophils Percent Auto 0.5 % (0.2-1.2); Eosinophils Absolute Auto 0.1 K/mm3 (0-0.3); Eosinophils Percent Auto 1.7 % (0-4.4); Hematocrit 31.9 % (37.0-47.0); Hemoglobin 10.4 g/dL (12.0-15.0); Immature Granulocyte Absolute 0.03 K/mm3 (0.00-0.031); Immature Granulocyte Percent A 0.4 % (0-0.5); Lymphocytes Absolute Auto 1.56 K/mm3 (0.9-3.2); Lymphocytes Percent Auto 18.4 % (18.3-44.2); Mean Corpuscular HGB Conc 32.6 g/dl (32-36); Mean Corpuscular Hemoglobin 27.7 pg (26-34); Mean Corpuscular Volume 84.8 fl (80-100); Mean Platelet Volume 8.7 fl (7.4-10.4); Monocytes Absolute Auto 0.7 K/mm3 (0.1-0.6); Monocytes Percent Auto 8.7 % (2.6-8.5); Neutrophils Percent Auto 70.3 % (45.5-73.1); Platelet Count Result 508 k/mm3 (150-375); Red Blood Count 3.76 M/mm3 (4.2-5.4); White Blood Count 8.5 K/mm3 (4.5-10.0)
[2024-05-01 00:33] LABS: Alanine Aminotransferase 14 U/L (6-35); Albumin Level 3.6 g/dL (3.5-5.1); Alkaline Phosphatase 69 U/L (38-126); Anion Gap 9 mmol/L (4-12); Aspartate Amino Transferase 17 U/L (14-36); Bilirubin,Total 0.2 mg/dL (0.2-1.3); Blood Urea Nitrogen 9 mg/dL (7-17); Calcium 8.9 mg/dL (8.4-10.2); Carbon Dioxide 27 mmol/L (22-30); Chloride 101 mmol/L (98-107); Estimated CRCL calculation 59 ml/min; Estimated Glomerular Filt Rate > 60; Glucose 117 mg/dL (65-110); Potassium 3.9 mmol/L (3.4-5.0); Sodium 137 mmol/L (137-145)
[2024-05-01 00:35] LABS: CRP 8.2 mg/dL (<1.0)
[2024-05-01 00:42] LABS: NT Pro B Type Natriuretic Pept 749 pg/mL (19.9-100)
[2024-05-01 00:43] LABS: Troponin I < 0.012 ng/mL (0.000-0.034)
[2024-05-01 00:49] LABS: Influenza A QL RT-PCR Negative (Negative); Influenza B QL RT-PCR Negative (Negative); RSV RNA, RT-PCR Negative (Negative); SARS-CoV-2 RNA PCR Negative (Negative)
[2024-05-01 01:20] LABS: Lactic Acid Reflex 0.5 mmol/L (0.7-2.0)
[2024-05-01 02:58] VITALS: BP 136/76; PULSE 91; RESP 16; O2SAT 98
[2024-05-01] MEDS: CEFEPIME 1 GM/NS 50 ML 1 GM/50 ML BAG IVPB ×2 (04:28→17:22)
[2024-05-01 04:33] VITALS: BP 129/80; PULSE 86; RESP 14; O2SAT 98
[2024-05-01 04:34] VITALS: PULSE 88
[2024-05-01 05:50] VITALS: BP 132/70; PULSE 88; RESP 20; TEMP 36.3; O2SAT 98
--- NOTE | 2024-05-01 05:52 | PM.IMHP ---
H&P: HPI History of Present Illness Date/Time: 05/01/24 05:52 Chief Complaint: Fever, fatigue Narrative: Patient is a 73-year-old female with past history of dilated cardiomyopathy, IBS, GERD, anxiety presents to ED complaints of fatigue and fevers. Patient was hospitalized from 04/18-04/19 for dyspnea. She was found to have negative PE, was seen to moderate pericardial effusion, possible pneumonia. Patient was discharged on Levaquin. 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 despite completing antibiotic course patient is now presenting with fevers and has been followed with her primary care doctor. PCP ordered blood cultures and is concerned about possible infection of the pacemaker leads. in the ED: Patient is no longer febrile, labs vitals are stable within normal limits. With the recurrent fevers there was concern for endocarditis, case was discussed with forensic audit expert who recommended RO. we are monitoring for recurrent fevers, started patient on cefepime. Patient be admitted for fevers of unknown origin. Review of Systems Review of Systems: Constitutional: No Fever, No Chills, No Night Sweats, endorses fatigue and malaise. ENT/Mouth: No Hearing Changes, No Ear Pain, No Nasal Congestion, No Sinus Pain, No Hoarseness, No sore throat, No Rhinorrhea, No Swallowing Difficulty Eyes: No Eye Pain, No Redness, No Vision Changes Cardiovascular: No Chest Pain, No Palpitations, No Dyspnea on Exertion, No Orthopnea, No Claudication, No Edema Respiratory: No Cough, No Sputum, No Wheezing, No Shortness of Breath Gastrointestinal: No Nausea, No Vomiting, No Diarrhea, No Constipation, No Abdominal Pain, No Heartburn, No Hematochezia, No Melena Genitourinary: No Dysuria, No Urinary Frequency, No Hematuria, No Urinary Incontinence, No Urgency Musculoskeletal: No Arthralgias, No Myalgias, No Joint Swelling, No Joint Stiffness, No Back Pain Skin: No Skin Lesions, No Pruritis, No Hair Changes Neuro: No Weakness, No Numbness, No Paresthesias, No Loss of Consciousness, No Syncope, No Dizziness, No Headache Psych: No Anxiety/Panic, No Depression, No Insomnia Heme: No Bruising, No Bleeding Lymph: No Adenopathy Endocrine: No Polyuria, No Polydipsia, No Temperature Intolerance PMFSH Past Medical History Medical History Allergies Anxiety Arthritis Cancer Dilated cardiomyopathy GERD (gastroesophageal reflux disease) Headache IBS (irritable bowel syndrome) Left bundle branch block Lichen sclerosus Myopic degeneration Surgical History Surgical History History of cardiac cath History of tonsillectomy X2 Hx of removal of ovary Left Family History Family History Father Diabetes mellitus Hypertension Depression Macular degeneration Mother Pancreatic cancer Skin cancer Bladder cancer Sibling Hypertension Grandparent Pancreatic cancer Diabetes mellitus Hypertension Heart disease Social History Social History Smoking status: Never smoker Alcohol intake: never Substance use: never Substance use type: does not use Do You Feel Safe in your Home?: Yes Lack of Transportation: No Lack of Food: Never True Current Housing: I Have Housing Concerned About Future Housing: No Difficulty Paying Gas/Electric Bills: No Difficulty Paying for Meds: No Currently Unemployed: No Education: Bachelor's Degree Difficulty w/ Childcare or Family Care: No Living arrangements: with family Spiritual care concerns: No Meds Home Medications and Allergies Home Medications Medication Instructions Recorded Confirmed Type alprazolam 0.25 mg tablet (Xanax) 0.25 mg PO DAILY
--- NOTE | 2024-05-01 07:33 | PM.IMPN ---
Progress Note: A&P Assessment and Plan (1) Fever, unknown origin: Code(s): R50.9 - Fever, unspecified Status: Acute Assessment and Plan: Patient has completed Levaquin antibiotics for recent pneumonia. Patient has some persistent nonproductive cough. Patient has had complications with her recent pacemaker which was placed in December, revised in February 2024 - blood culture obtained on 04/30: NGTD - antibiotics: Cefepime, vancomycin - flu negative, influenza negative, RSV negative - Cardiology consulted Reasonable to exclude infective endocarditis given patients recurrent fevers despite antibiotic treatment. Discussed with ID pharm and started on vancomycin. She remains on cefepime. Plan for RO on 05/02 at 2:[address] Barrera. NPO after midnight (2) Pericardial effusion: Code(s): I31.39 - Other pericardial effusion (noninflammatory) Status: Acute Assessment and Plan: - Chest XR: Unchanged left hemidiaphragm elevation with left basilar atelectasis and chronic pleural blunting versus a trace left pleural effusion. - Chest CT: Small left pleural effusion and minimal right pleural effusion, with mild bibasilar atelectatic change.Small pericardial effusion. - CRP at 8.2, negative troponin, BNP 749 - Cardiology consulted Patient is not in clinical tamponade No need for intervention at this time (3) Essential hypertension: Code(s): I10 - Essential (primary) hypertension Status: Acute Assessment and Plan: Chronic, stable on home medications. - Metoprolol 75 mg daily - Entresto 97-103 mg BID - Monitor Plan # chronic conditions - eczema: May continue clobetasol - GERD: omeprazole - anxiety: P.r.n. Xanax - constipation: Docusate - Heart failure reduced ejection fraction: On Entresto, metoprolol - depression: Sertraline Diet: Regular DVT prophylaxis: Lovenox Code status: Full code Disposition: Pending clinical course, likely home in 2-3 days Time Spent With Patient Time with patient: 25 - 35 minutes Subjective Date/time seen: 05/01/24 07:33 Interval history: 73-year-old female with past history of dilated cardiomyopathy, IBS, GERD, anxiety presents to ED complaints of fatigue and fevers. Patient was hospitalized from 04/18-04/19 for dyspnea. She was found to have negative PE, was seen to moderate pericardial effusion, possible pneumonia. Patient was discharged on Levaquin. 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 despite completing antibiotic course patient is now presenting with fevers and has been followed with her primary care doctor. PCP ordered blood cultures and is concerned about possible infection of the pacemaker leads. Patient is pleasant lying comfortably in bed. She has no complaints at this time, denying chest pain, shortness for breath, palpitations, nausea/vomiting, bowel/bladder. She was evaluated by Cardiology today and is to undergo a RO tomorrow with Dr. Barrera. per Cardiology there was some concern about possible infective endocarditis due to ongoing fevers despite antibiotic treatment. Discussed patient with Infectious Disease pharmacy and start her on vancomycin. She remains on cefepime at this time. For patient's pericardial effusion there is no intervention needed this time per Cardiology. Review of Systems Review of Systems: All systems reviewed & are unremarkable except as noted in HPI and below Exam Narrative: AF HRH 90 RR 18 SpO2 96 BP 110/55 General: female in no acute respiratory distress who is nontoxic appearing, lying semi recumbent in bed. HEENT: Normocephalic. Atraumatic. Pupils equal round reactive to light. Extraocular movement intact. Sclera clear and anicteric. No facial asymmetry. Chest: Lungs are clear to auscultation bilaterally. No wheezes or crackles. CV: Heart was regular rate and rhythm. S1-S2. No murmurs, gallops,
[2024-05-01] MEDS: METOPROLOL SUCCINATE EXT REL 25 MG TABCR 75 MG PO (08:07)
[2024-05-01] MEDS: SACUBITRIL/VALSARTAN 97-103 MG TABLET 1 TAB PO ×2 (08:07→20:27)
[2024-05-01] MEDS: VANCOMYCIN 1,250 MG/NS 250 ML 1,250 MG/250 ML BAG 166.67 MG IVPB (12:36)
[2024-05-01] MEDS: ENOXAPARIN 40 MG/0.4 ML SYRINGE SUB-Q (12:37)
[2024-05-01] MEDS: SERTRALINE HCL 25 MG TABLET 75 MG PO (12:38)
[2024-05-01] MEDS: MULTIVITAMINS THERAPEUTIC TAB (*BKC) 1 TABLET PO (12:38)
[2024-05-01] MEDS: PANTOPRAZOLE 40 MG TABLET PO (12:38)
[2024-05-01] MEDS: DOCUSATE SODIUM 100 MG CAPSULE PO (12:38)
[2024-05-01] MEDS: OMEGA 3 POLYUNSAT FATTY ACIDS 1 GM CAP PO (12:38)
--- NOTE | 2024-05-01 13:23 | PM.CNCAR ---
Assessment and Plan Assessment and plan (1) Fever, unknown origin: Code(s): R50.9 - Fever, unspecified Status: Acute Assessment and Plan: Given recurrent fevers despite antibiotic treatment, reasonable to exclude infective endocarditis, particularly device infection, with a RO. Discussed the procedure with the patient, including indication for the procedure, procedure details, risks vs benefits. Patient agreeable. Given the paralysis of left hemidiaphragm, would prefer RO be done with Anesthesia team for sedation in case there are any issues with her respiratory status during the procedure. This has been scheduled for 05/02 at 2:30PM with Dr. Barrera. Patient to be NPO after midnight. Otherwise, infectious workup as per the primary team. (2) Pericardial effusion: Code(s): I31.39 - Other pericardial effusion (noninflammatory) Status: Acute Assessment and Plan: Moderate sized pericardial effusion noted on CT scan from March. Repeat CT scan this admission now showing a small effusion. Transthoracic echocardiogram last admission with moderate pericardial effusion. There is no echocardiographic evidence of tamponade. Patient is not in clinical tamponade. The pericardial effusion does not need intervention. Will reassess on RO tomorrow. (3) Heart failure with mildly reduced ejection fraction: Code(s): I50.22 - Chronic systolic (congestive) heart failure Status: Acute Assessment and Plan: Continue Toprol and Entresto. History of Present Illness History of Present Illness Consult date/time: 05/01/24 13:23 Requesting physician: Mehran Tafoya PA-C Consult reason: Other (RO) Reason For Visit: Pericardial effusion Narrative: This is a 73 year old female with heart failure with reduced LVEF s/p [employer]ING [employer]-D, hypertension, hyperlipidemia, left bundle branch block. In February 2024 she underwent atrial lead revision. Patient was recently admitted to [facility] for pneumonia, shortness of breath, cough, fevers at home, moderate pericardial effusion. She was treated for a pneumonia and discharged home subsequently the next day. Seen at PCP's office on 04/30. She has had recurrent fevers despite finishing her course of antibiotics with Levaquin. Blood cultures ordered by PCP. 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 Patient still reports occasional nonproductive cough since her last admission. Has a mild leukocytosis of 12.3. ESR is elevated at 95. CRP is elevated at 8.2. Chest CTA this admission shows small left pleural effusion and minimal right pleural effusion, small pericardial effusion (prior CT 04/18 showed moderate pericardial effusion). Blood culture thus far is NGTD. We have been consulted for RO. Review of Systems Review of Systems: All systems reviewed & are unremarkable except as noted in HPI and below (HPI) [facility] Past Medical History Medical History Allergies Anxiety Arthritis Cancer Dilated cardiomyopathy GERD (gastroesophageal reflux disease) Headache IBS (irritable bowel syndrome) Left bundle branch block Lichen sclerosus Myopic degeneration Surgical History Surgical History History of cardiac cath History of tonsillectomy X2 Hx of removal of ovary Left Family History Family History Father Diabetes mellitus Hypertension Depression Macular degeneration Mother Pancreatic cancer Skin cancer Bladder cancer Sibling Hypertension Grandparent Pancreatic cancer Diabetes mellitus Hypertension Heart disease Social History Social History Smoking status: Never smoker Alcohol intake: never Substance use: never Substance use type: does not use Do You Feel Safe in your Home?: Yes Lack o
[2024-05-01 14:00] VITALS: BP 110/55; PULSE 90; RESP 18; TEMP 36.7; O2SAT 96
[2024-05-01 20:55] VITALS: BP 101/52; PULSE 88; RESP 16; TEMP 36.3; O2SAT 97
[2024-05-02] VITALS (12 sets, daily range): BP systolic 108–163; BP diastolic 48–81; PULSE 78–101; RESP 14–25; TEMP 36.2–37; O2SAT 96–100
--- NOTE | 2024-05-02 | ECHO_ITS ---
Patient Info Name: Celeste Doll Age: 73 years : 1950 Gender: Female Ht: 60 in Wt: 113 lbs BSA: 1.48 m2 Heart Rhythm: Paced Technical Quality: Good Exam Date: 05/02/2024 12:52 PM Exam Location: Echo Lab Patient Status: Outpatient Admit Date: 05/01/2024 Staff Ordering Physician: Mitra García DO Traffic Court Magistrate: GLENN Attending Provider: Disha Harris PA-C Referring Physician: Ricky MARAVILLA; Exam Type: CA echo transesophageal Study Info Indications - r/o vegetations Complete two-dimensional, color flow and Doppler transesophageal study is performed. Summary 1. Mild thickening of the mitral valve with trivial MR. 2. No evidence of infective vegetation on any of the cardiac valves. 3. No evidence of infective vegetation on any of the pacemaker leads. 4. Left ventricular hypertrophy with mildly reduced systolic function. Left Ventricle Left ventricular chamber dimension is normal. Left ventricular systolic function is mildly reduced with an ejection fraction by Biplane Method of Discs of Empty. There is mild concentric increased left ventricular wall thickness. Right Ventricle Right ventricular chamber dimension is normal. Linear artifact in right ventricle suggestive of catheter(s), pacemaker lead(s), or ICD lead(s). Left Atria Left atrial chamber dimension is mildly enlarged. Right Atria Right atrial chamber dimension is mildly enlarged. Linear artifact in the right atrium suggestive of catheter(s), pacemaker lead(s), or ICD lead(s). Aortic Valve The aortic valve is normal. Pulmonic Valve The pulmonic valve is normal. Mitral Valve The mitral valve has normal leaflets. There is trace mitral valve regurgitation. Tricuspid Valve The tricuspid valve leaflets are normal. Pericardium/Pleural The pericardium appears normal. Inferior Vena Cava Not well visualized inferior vena cava with Empty collapse upon inspiration consistent with Empty right atrial pressure, Empty. Aorta The aortic root size at the sinus of Valsalva is normal. The prox ascending aorta size is normal. Report Signatures
[2024-05-02] MEDS: CEFEPIME 1 GM/NS 50 ML 1 GM/50 ML BAG IVPB ×2 (05:36→17:54)
[2024-05-02 07:06] LABS: Basophils Percent Auto 0.6 % (0.2-1.2); Eosinophils Absolute Auto 0.2 K/mm3 (0-0.3); Eosinophils Percent Auto 2.8 % (0-4.4); Hematocrit 33.9 % (37.0-47.0); Hemoglobin 10.6 g/dL (12.0-15.0); Immature Granulocyte Absolute 0.03 K/mm3 (0.00-0.031); Immature Granulocyte Percent A 0.4 % (0-0.5); Lymphocytes Absolute Auto 1.52 K/mm3 (0.9-3.2); Lymphocytes Percent Auto 22.7 % (18.3-44.2); Mean Corpuscular HGB Conc 31.3 g/dl (32-36); Mean Corpuscular Hemoglobin 26.7 pg (26-34); Mean Corpuscular Volume 85.4 fl (80-100); Mean Platelet Volume 8.6 fl (7.4-10.4); Monocytes Absolute Auto 0.6 K/mm3 (0.1-0.6); Neutrophils Absolute Auto 4.3 K/mm3 (1.3-6.7); Neutrophils Percent Auto 64.5 % (45.5-73.1); Platelet Count Result 540 k/mm3 (150-375); Red Blood Count 3.97 M/mm3 (4.2-5.4); Red Cell Distribution Width 13.8 % (11.5-14.5); White Blood Count 6.7 K/mm3 (4.5-10.0)
--- NOTE | 2024-05-02 08:12 | PM.IMPN ---
Progress Note: A&P Assessment and Plan (1) Fever, unknown origin: Code(s): R50.9 - Fever, unspecified Status: Acute Assessment and Plan: Patient has completed Levaquin antibiotics for recent pneumonia. Patient has some persistent nonproductive cough. Patient has had complications with her recent pacemaker which was placed in December, revised in February 2024 - blood culture obtained on 04/30: NGTD - antibiotics: Cefepime, vancomycin - flu negative, influenza negative, RSV negative - Cardiology consulted Reasonable to exclude infective endocarditis given patients recurrent fevers despite antibiotic treatment. Discussed with ID pharm and started on vancomycin. She remains on cefepime. Plan for RO on 05/02 at 2:[address] Barrera. NPO after midnight (2) Pericardial effusion: Code(s): I31.39 - Other pericardial effusion (noninflammatory) Status: Acute Assessment and Plan: - Chest XR: Unchanged left hemidiaphragm elevation with left basilar atelectasis and chronic pleural blunting versus a trace left pleural effusion. - Chest CT: Small left pleural effusion and minimal right pleural effusion, with mild bibasilar atelectatic change.Small pericardial effusion. - CRP at 8.2, negative troponin, BNP 749 - Cardiology consulted Patient is not in clinical tamponade No need for intervention at this time (3) Essential hypertension: Code(s): I10 - Essential (primary) hypertension Status: Acute Assessment and Plan: Chronic, stable on home medications. - Metoprolol 75 mg daily - Entresto 97-103 mg BID - Monitor Plan # chronic conditions - eczema: May continue clobetasol - GERD: omeprazole - anxiety: P.r.n. Xanax - constipation: Docusate - Heart failure reduced ejection fraction: On Entresto, metoprolol - depression: Sertraline Diet: Regular DVT prophylaxis: Lovenox Code status: Full code Time Spent With Patient Time with patient: 25 - 35 minutes Subjective Date/time seen: 05/02/24 08:12 Interval history: 73-year-old female with past history of dilated cardiomyopathy, IBS, GERD, anxiety presents to ED complaints of fatigue and fevers. Patient was hospitalized from 04/18-04/19 for dyspnea. She was found to have negative PE, was seen to moderate pericardial effusion, possible pneumonia. Patient was discharged on Levaquin. Of note patient had recently had issues with pacemaker, she had pacemaker installed in December 2023 for [employer]GER, revision in February 2024. Despite completing antibiotic course patient is now presenting with fevers and has been followed with her primary care doctor. PCP ordered blood cultures and is concerned about possible infection of the pacemaker leads. Patient is pleasant lying comfortably in bed. She endorses a slight nonproductive cough. She denies chest pain, palpitations, shortness of breath, nausea/vomiting and changes in bowel/bladder. She is to undergo a RO today at 2:30. Review of Systems Review of Systems: All systems reviewed & are unremarkable except as noted in HPI and below Exam Narrative: AF HR 86 RR 18 SpO2 96 BP 115/48 General: female in no acute respiratory distress who is nontoxic appearing, lying semi recumbent in bed. HEENT: Normocephalic. Atraumatic. Pupils equal round reactive to light. Extraocular movement intact. Sclera clear and anicteric. No facial asymmetry. Chest: Lungs are clear to auscultation bilaterally. No wheezes or crackles. CV: Heart was regular rate and rhythm. S1-S2. No murmurs, gallops, or rubs. Abd: Abdomen was soft. Nontender. Nondistended. Positive bowel sounds. Ext: No clubbing, cyanosis, or edema. 2+ DP pulses bilaterally. Objective Data Vital Signs Vital Signs: Vital Signs - 24 hr 05/01/24 14:00 05/01/24 20:55 05/01/24 20:00 Temperature 98.0 F 97.4 F L Pulse Rate 90 88 Respiratory Rate 18 16 Blood Pressure 110/55 L 101/52 L Pulse Oximetry 96 97 Oxygen Delivery Room Air 05/02/24
[2024-05-02] MEDS: SACUBITRIL/VALSARTAN 97-103 MG TABLET 1 TAB PO ×2 (09:28→20:09)
[2024-05-02] MEDS: METOPROLOL SUCCINATE EXT REL 25 MG TABCR 75 MG PO (09:28)
[2024-05-02] MEDS: ENOXAPARIN 40 MG/0.4 ML SYRINGE SUB-Q (09:28)
[2024-05-02 10:58] LABS: Alanine Aminotransferase 13 U/L (6-35); Albumin Level 3.2 g/dL (3.5-5.1); Alkaline Phosphatase 70 U/L (38-126); Anion Gap 10 mmol/L (4-12); Aspartate Amino Transferase 16 U/L (14-36); Bilirubin,Total 0.2 mg/dL (0.2-1.3); Blood Urea Nitrogen 9 mg/dL (7-17); Calcium 8.7 mg/dL (8.4-10.2); Carbon Dioxide 22 mmol/L (22-30); Chloride 103 mmol/L (98-107); Estimated CRCL calculation 50 ml/min; Estimated Glomerular Filt Rate > 60; Glucose 102 mg/dL (65-110); Potassium 3.6 mmol/L (3.4-5.0); Sodium 135 mmol/L (137-145)
[2024-05-02] MEDS: VANCOMYCIN 1,000 MG/NS 250 ML 1,000 MG/250 ML BAG 250 MG IVPB (12:08)
--- NOTE | 2024-05-02 13:59 | P.PNAN_ITS ---
Anes - Eval Final PreProcedure Day of Procedure 05/02/24 13:59 Patient weight: thin Heart: regular rate and rhythm Lungs: clear to auscultation Airway: Mallampati scale class II Neurological: alert and oriented Last oral intake: >/= 8 hours ASA classification: III Emergent: no Anesthetic plan: proceed Anesthesia type and monitoring: general GIVS and standard monitoring Results Review: All pre-operative results and documents have been reviewed as part of the pre- operative evaluation. Informed Consent: The patient's anesthetic plan and its attendant risks and benefits were discussed with the patient/family/POA. Questions were solicited and answers provided to the satisfaction of the patient/family/POA.
--- NOTE | 2024-05-02 14:01 | WPDANESEPP ---
Anes - Eval Pre Procedure Procedure: Operation Date: 05/02/24 14:30 Proposed Procedures p Trans Esophageal Echo - James Barrera MD Date/Time: 05/02/24 14:01 Surgeon: Holly Preop Diagnosis: endocarditis Pre Op Diagnosis: Pericardial effusion Patient Data Age: 73 Gender: F Height: 1.52 m Weight: 51.4 kg Last Vital Signs Temp 36.2 C L 05/02/24 06:00 Pulse 80 05/02/24 09:28 Resp 18 05/02/24 06:00 BP 115/48 L 05/02/24 06:00 Pulse Ox 96 05/02/24 06:00 O2 Del Method Room Air 05/01/24 20:00 Allergies Allergy/AdvReac Type Severity Reaction Status Date / Time Penicillins Allergy Itchy Verified 05/01/24 11:57 swollen throat Sulfa (Sulfonamide Allergy Rash Verified 04/30/24 14:22 Antibiotics) Home Medications Medication Instructions Recorded Confirmed Type alprazolam 0.25 mg tablet (Xanax) 0.25 mg PO DAILY PRN Anxiety 06/11/21 05/01/24 History biotin 1 mg capsule 1 mg PO DAILY 06/11/21 05/01/24 History calcium carbonate 600 mg-vitamin 1 cap PO DAILY 06/11/21 05/01/24 History D3 12.5 mcg (500 unit) capsule (Calcium 600 with Vitamin D3) clobetasol 0.05 % topical cream 1 applic topical DAILY PRN eczema 06/11/21 05/01/24 History docusate sodium 100 mg capsule 100 mg PO DAILY 06/11/21 05/01/24 History (Stool Softener) ketotifen fumarate 0.025 % (0.035 1 drp EACH EYE BID PRN Dry Eyes 06/11/21 05/01/24 History %) eye drops multivitamin 1 tablet PO DAILY 06/11/21 05/01/24 History omega-3 fatty acids 1,000 mg 1,000 mg PO DAILY 06/11/21 05/01/24 History capsule (Fish Oil Concentrate) psyllium husk 0.4 gram capsule 0.4 g PO DAILY 06/11/21 05/01/24 History (Daily Fiber) triamcinolone acetonide 0.1 % 1 applic topical DAILY PRN Rash 06/11/21 05/01/24 History topical cream halcinonide 0.1 % topical cream 1 applic topical BID PRN eczema 09/28/23 05/01/24 History (Halog) nitroglycerin 0.4 mg sublingual 0.4 mg sublingual Q5M PRN Chest 09/28/23 05/01/24 History tablet Pain sacubitril 97 mg-valsartan 103 mg 1 tablet PO BID 09/28/23 05/01/24 History tablet Bifidobacterium infantis 4 mg 4 mg PO DAILY 02/29/24 05/01/24 History capsule (Align) fluticasone propionate 50 See Rx Instructions .Route 04/18/24 05/01/24 History mcg/actuation nasal .COMPLEX PRN Congestion spray,suspension furosemide 20 mg tablet (Lasix) 20 mg PO PRN #30 tabs 04/19/24 05/01/24 Rx metoprolol succinate 50 mg 75 mg PO DAILY 04/30/24 05/01/24 History tablet,extended release 24 hr sertraline 50 mg tablet 75 mg PO DAILY 04/30/24 05/01/24 History omeprazole 20 mg capsule,delayed 20 mg PO DAILY 05/01/24 05/01/24 History release Laboratory Tests 05/02/24 06:49 WBC 6.7 K/mm3 (4.5-10.0) RBC 3.97 L M/mm3 (4.2-5.4) Hgb 10.6 L g/dL (12.0-15.0) Hct 33.9 L % (37.0-47.0) MCV 85.4 fl (80-100) MCH 26.7 pg (26-34) MCHC 31.3 L g/dl (32-36) RDW 13.8 % (11.5-14.5) Plt Count 540 H k/mm3 (150-375) MPV 8.6 fl (7.4-10.4) Immature Gran % (Auto) 0.4 % (0-0.5) Neut % (Auto) 64.5 % (45.5-73.1) Lymph % (Auto) 22.7 % (18.3-44.2) [place] % (Auto) 9.0 H % (2.6-8.5) Eos % (Auto) 2.8 % (0-4.4) Baso % (Auto) 0.6 % (0.2-1.2) Lymph # (Auto) 1.52 K/mm3 (0.9-3.2) [place] # (Auto) 0.6 K/mm3 (0.1-0.6) Eos # (Auto) 0.2 K/mm3 (0-0.3) Baso # (Auto) 0.0 K/mm3 (0.0-0.1) Abs Immat Gran (auto) 0.03 K/mm3 (0.00-0.031) Absolute Neuts (auto) 4.3 K/mm3 (1.3-6.7) Absolute Nucleated RBC 0.000 K/mm3 (0.0-0.012) Nucleated RBC % 0.0 % (0.0-0.2) Sodium 135 L mmol/L (137-145) Potassium 3.6 mmol/L (3.4-5.0) Chloride 103 mmol/L (98-107) Carbon Dioxide 22 mmol/L (22-30) Anion Gap 10 mmol/L (4-12) BUN 9 mg/dL (7-17) Creatinine 0.60 L mg/dL (0.7-1.0) Estim Creat Clear Calc 50 ml/min Estimated GFR > 60 (59 - ) Glucose
--- NOTE | 2024-05-02 14:22 | WPDCARDPROC ---
Cardiac Cath Procedure Note Date of procedure:: 05/02/24 Performing physician:: James Barrera MD Indication:: Persistent fever Brief clinical history:: This is a 73-year-old woman with a history of nonischemic cardiomyopathy who was hospitalized for evaluation of fever of unknown origin. She recently had a pacemaker/defibrillator device implanted for resynchronization therapy. She had blood cultures drawn on admission which are negative. Procedure Procedure performed:: Transesophageal echocardiogram Sedation/Medication given:: Sedation per Anesthesia Estimated blood loss:: None Procedure note:: Patient was brought to the cardiac catheterization and postanesthesia recovery area where she was in the postabsorptive state and had IV access in the right upper extremity. She received or pharyngeal benzocaine spray following which she was sedated by the anesthesia service. A bite block was placed into position and the esophagus was then intubated with the RO probe easily in without any difficulty. Multiplane RO with Doppler was performed assessing for evidence of infectious vegetation. Following completion of the study the RO probe was removed she was recovered from sedation by anesthesia and taken back to her room in stable condition there were no apparent complications Findings:: The left atrium is mildly to moderately dilated the atrium was free of any thrombus. The mitral valve leaflets are normal in appearance there was a trivial jet of MR which is a centrally directed jet there was no infective vegetation associated with the mitral valve. The aortic valve is a trileaflet structure which is unremarkable in appearance. There was no FX infective vegetation associated with the aortic valve there is no aortic regurgitation. The tricuspid and pulmonic valves were normal in appearance. There is a very small amount of tricuspid regurgitation consistent with a pacemaker lead traversing the valve. The pacemaker leads including the atrial lead, ventricular lead and the atrial portion of the coronary sinus lead were well visualized there is no evidence of any infectious material associated with the pacemaker leads. Conclusion:: 1. Transesophageal echocardiogram demonstrating no evidence of infective vegetation associated with the cardiac valves or the pacemaker leads. James Barrera MD [facility]
[2024-05-02] MEDS: ALBUTEROL SULFATE NEB 2.5 MG/3 ML INH 1.25 MG INHALATION (14:40)
[2024-05-02] MEDS: racEPINEPHrine 2.25% NEBU SOLN 0.5 ML VIAL.NEB INHALATION (15:07)
[2024-05-03] MEDS: CEFEPIME 1 GM/NS 50 ML 1 GM/50 ML BAG IVPB (05:34)
[2024-05-03 06:00] VITALS: BP 123/73; PULSE 89; RESP 19; TEMP 36.9; O2SAT 98
[2024-05-03 06:11] LABS: Basophils Percent Auto 0.5 % (0.2-1.2); Eosinophils Absolute Auto 0.3 K/mm3 (0-0.3); Eosinophils Percent Auto 3.4 % (0-4.4); Hematocrit 31.5 % (37.0-47.0); Hemoglobin 10.4 g/dL (12.0-15.0); Immature Granulocyte Absolute 0.03 K/mm3 (0.00-0.031); Immature Granulocyte Percent A 0.4 % (0-0.5); Lymphocytes Absolute Auto 1.66 K/mm3 (0.9-3.2); Lymphocytes Percent Auto 21.1 % (18.3-44.2); Mean Corpuscular Hemoglobin 27.9 pg (26-34); Mean Corpuscular Volume 84.5 fl (80-100); Mean Platelet Volume 8.8 fl (7.4-10.4); Monocytes Absolute Auto 0.7 K/mm3 (0.1-0.6); Monocytes Percent Auto 8.5 % (2.6-8.5); Neutrophils Absolute Auto 5.2 K/mm3 (1.3-6.7); Neutrophils Percent Auto 66.1 % (45.5-73.1); Platelet Count Result 473 k/mm3 (150-375); Red Blood Count 3.73 M/mm3 (4.2-5.4); Red Cell Distribution Width 13.8 % (11.5-14.5); White Blood Count 7.9 K/mm3 (4.5-10.0)
[2024-05-03 06:24] LABS: Alanine Aminotransferase 13 U/L (6-35); Alkaline Phosphatase 69 U/L (38-126); Anion Gap 5 mmol/L (4-12); Aspartate Amino Transferase 17 U/L (14-36); Bilirubin,Total 0.2 mg/dL (0.2-1.3); Blood Urea Nitrogen 8 mg/dL (7-17); Calcium 8.7 mg/dL (8.4-10.2); Carbon Dioxide 27 mmol/L (22-30); Chloride 104 mmol/L (98-107); Estimated CRCL calculation 50 ml/min; Estimated Glomerular Filt Rate > 60; Glucose 96 mg/dL (65-110); Potassium 3.3 mmol/L (3.4-5.0); Sodium 136 mmol/L (137-145)
[2024-05-03 08:43] VITALS: PULSE 80
[2024-05-03] MEDS: OMEGA 3 POLYUNSAT FATTY ACIDS 1 GM CAP PO (08:43)
[2024-05-03] MEDS: POTASSIUM CHLORIDE 20 MEQ ER TABLET 40 MEQ PO (08:43)
[2024-05-03] MEDS: SACUBITRIL/VALSARTAN 97-103 MG TABLET 1 TAB PO (08:43)
[2024-05-03] MEDS: DOCUSATE SODIUM 100 MG CAPSULE PO (08:43)
[2024-05-03] MEDS: METOPROLOL SUCCINATE EXT REL 25 MG TABCR 75 MG PO (08:43)
[2024-05-03] MEDS: SERTRALINE HCL 25 MG TABLET 75 MG PO (08:44)
[2024-05-03] MEDS: MULTIVITAMINS THERAPEUTIC TAB (*BKC) 1 TABLET PO (08:44)
[2024-05-03] MEDS: PANTOPRAZOLE 40 MG TABLET PO (08:44)
--- NOTE | 2024-05-03 08:45 | PC.NURSE ---
Patient request not to administer lovenox this am, hoping to discharge.
[2024-05-03 13:54] VITALS: BP 126/56; PULSE 87; RESP 18; TEMP 36.6; O2SAT 97
--- NOTE | 2024-05-03 14:10 | PM.DS ---
DS: Admitting Diagnosis Discharge Date 05/03/2024 Admitting Diagnosis fever, unknown origin pericardial effusion essential hypertension DS: Discharge Diagnosis Discharge Diagnosis (1) Fever, unknown origin: Code(s): R50.9 - Fever, unspecified Status: Acute (2) Pericardial effusion: Code(s): I31.39 - Other pericardial effusion (noninflammatory) Status: Acute (3) Essential hypertension: Code(s): I10 - Essential (primary) hypertension Status: Acute DS: Summary Hospital Course Reason for hospitalization: fever, unknown origin pericardial effusion essential hypertension Hospital Course: 73-year-old female with past history of dilated cardiomyopathy, IBS, GERD, anxiety presents to ED complaints of fatigue and fevers. Patient was hospitalized from 04/18-04/19 for dyspnea. She was found to have negative PE, was seen to moderate pericardial effusion, possible pneumonia. Patient was discharged on Levaquin. Of note patient had recently had issues with pacemaker, she had pacemaker installed in December 2023 for [employer]OL, revision in February 2024. Despite completing antibiotic course patient is now presenting with fevers and has been followed with her primary care doctor. PCP ordered blood cultures and is concerned about possible infection of the pacemaker leads. Patient discharged home in stable condition. Status at Discharge Functional status at discharge: independent ambulation Time Spent with Patient Time attestation: Total time spent providing and/or coordinating discharge services: Time spent: Greater than 30 minutes Exam Narrative: AF HR 87 RR 18 SpO2 97 BP 126/56 General: female in no acute respiratory distress who is nontoxic appearing, lying semi recumbent in bed. HEENT: Normocephalic. Atraumatic. Pupils equal round reactive to light. Extraocular movement intact. Sclera clear and anicteric. No facial asymmetry. Chest: Lungs are clear to auscultation bilaterally. No wheezes or crackles. CV: Heart was regular rate and rhythm. S1-S2. No murmurs, gallops, or rubs. Abd: Abdomen was soft. Nontender. Nondistended. Positive bowel sounds. Ext: No clubbing, cyanosis, or edema. 2+ DP pulses bilaterally. DS: Data Data Completed and Pending Completed studies during hospitalization: Chest CT Chest XR Chest XR Labs on day of discharge: Labs from last 24 hours 05/03/24 05/03/24 11:56 05:53 WBC 7.9 RBC 3.73 L Hgb 10.4 L Hct 31.5 L MCV 84.5 MCH 27.9 MCHC 33.0 RDW 13.8 Plt Count 473 H MPV 8.8 Immature Gran % (Auto) 0.4 Neut % (Auto) 66.1 Lymph % (Auto) 21.1 [place] % (Auto) 8.5 Eos % (Auto) 3.4 Baso % (Auto) 0.5 Lymph # (Auto) 1.66 [place] # (Auto) 0.7 H Eos # (Auto) 0.3 Baso # (Auto) 0.0 Abs Immat Gran (auto) 0.03 Absolute Neuts (auto) 5.2 Absolute Nucleated RBC 0.000 Nucleated RBC % 0.0 Sodium 136 L Potassium 3.3 L Chloride 104 Carbon Dioxide 27 Anion Gap 5 BUN 8 Creatinine 0.60 L Estim Creat Clear Calc 50 Estimated GFR > 60 Glucose 96 Calcium 8.7 Total Bilirubin 0.2 AST 17 ALT 13 Alkaline Phosphatase 69 Total Protein 6.0 L Albumin 3.0 L Vancomycin Trough Pending Discharge Plan Discharge Attending physician on discharge: Nigel Stephens Consulting providers: Reuben Villafana Discharging Clinician: Disha Harris Anticipated Discharge Date/Time: 05/03/24 13:38 Patient Disposition: Home, Self-Care Activity: as tolerated Diet: as tolerated and heart healthy Discharge Instructions: Patient was admitted for fevers, concerning for infection to the cardiac leads. You were started on antibiotics at that time and had a RO performed. The RO was nonconcerning for infection. You have remained afebrile throughout admission and have no signs of infection at this time. The antibiotics will be discontinued at discharge. Discharge disposition: Take medications as pr
[2024-05-03 14:25] LABS: Vancomycin Trough 5.4 ug/mL (10.0-20.0)
== END 2024-05-03 14:20 | disposition home or self-care (01) ==
LOC: ANHED 05-01 04:08 → ANH3MEDSUR 05-01 05:51
PROVIDERS: Specialist; Admitting Provider Student in an Organized Health Care Education/Training Program; Emergency Provider Physician Assistant; PCP Internal Medicine; Visit Provider Student in an Organized Health Care Education/Training Program
PROC: (CPT 93312; principal; 2024-05-02 14:30)
DX: R50.9 Fever, unspecified (principal); I11.0 Hypertensive heart disease with heart failure; I50.22 Chronic systolic (congestive) heart failure; I31.39 Other pericardial effusion (noninflammatory); I42.0 Dilated cardiomyopathy; I44.7 Left bundle-branch block, unspecified; K21.9 Gastro-esophageal reflux disease without esophagitis; F41.9 Anxiety disorder, unspecified; K58.9 Irritable bowel syndrome, unspecified; L30.9 Dermatitis, unspecified; K59.00 Constipation, unspecified; F32.A Depression, unspecified; Z95.0 Presence of cardiac pacemaker; Z20.822 Contact with and (suspected) exposure to COVID-19
CPT/HCPCS: 36415; 71046; 71260; 80053; 80202; 81003; 82728; 83605; 83880; 84484; 85025; 85652; 86140; 87040; 87637; 93312; 93320; 93325; 94640; 96365; 96367; 96372; 96375; 99285; A9270; G0378; J0692; J1650; J2704; J3370; J7030; Q9967

== ENCOUNTER 2024-05-09 15:19 | Outpatient (CLI) | payer OTHER, SELFPAY | END 2024-05-09 15:20 | disposition home or self-care (01) | PROVIDERS: PCP Internal Medicine; Visit Provider Nurse Practitioner | DX: R50.9 Fever, unspecified (principal); R61 Generalized hyperhidrosis | CPT/HCPCS: 87040 ==

== ENCOUNTER 2024-05-10 10:31 | Outpatient (CLI) | payer OTHER, SELFPAY ==
--- NOTE | ~2024-05-10 | CT_ITS ---
EXAMINATION: CT abdomen pelvis w con DATE: 05/10/2024 11:18 INDICATION: Fever, unspecified. TECHNIQUE: Computed tomography (CT) of the abdomen and pelvis was performed with 100 mL Omnipaque 350 intravenous contrast. Automated exposure control and iterative reconstruction technique were employe d. The dose-length product was 194.07 mGy-cm. COMPARISON: Chest CT 05/01/24 FINDINGS: The visualized portions of the lung bases demonstrate marked. Elevation of left hemidiaphra gm and mild atelectasis. Calcified pulmonary nodules are consistent with old granulomatous disease. T here are small pleural effusions, left worse than right. The heart size is normal. There is a small p ericardial effusion. Pericardial thickening is noted suggesting an exudate. There are pacer wires in right shoulder and right ventricle. The liver, gallbladder, spleen, pancreas, adrenal glands, and kid neys are normal. There are no dilated loops of bowel. The appendix is normal. There is trace ascites. There are no pathologically enlarged lymph nodes. There is mild lumbar spondylosis and moderate thor acic spondylosis. IMPRESSION: 1. Small pericardial effusion with pericardial thickening suggesting an exudate. 2. Small pleural effusions. 3. Chronic elevation of left hemidiaphragm. Reviewed, dictated and finalized at location A. IMPRESSION: 1. Small pericardial effusion with pericardial thickening suggesting an exudate . 2. Small pleural effusions. 3. Chronic elevation of left hemidiaphragm.
== END 2024-05-10 10:32 | disposition home or self-care (01) ==
PROVIDERS: PCP Internal Medicine; Visit Provider Nurse Practitioner
DX: R50.9 Fever, unspecified (principal); R61 Generalized hyperhidrosis; J90 Pleural effusion, not elsewhere classified; I31.39 Other pericardial effusion (noninflammatory)
CPT/HCPCS: 74177; Q9967

== ENCOUNTER 2024-05-17 09:53 | Outpatient (CLI) | payer OTHER, SELFPAY ==
[2024-05-17 10:11] LABS: Basophils Absolute Auto 0.1 K/mm3 (0.0-0.1); Basophils Percent Auto 0.7 % (0.2-1.2); Eosinophils Absolute Auto 0.2 K/mm3 (0-0.3); Eosinophils Percent Auto 2.6 % (0-4.4); Hematocrit 37.8 % (37.0-47.0); Hemoglobin 11.7 g/dL (12.0-15.0); Immature Granulocyte Absolute 0.03 K/mm3 (0.00-0.031); Immature Granulocyte Percent A 0.4 % (0-0.5); Immature Reticulocyte Fraction 18.7 % (3.0-15.9); Lymphocytes Absolute Auto 1.44 K/mm3 (0.9-3.2); Lymphocytes Percent Auto 20.6 % (18.3-44.2); Mean Corpuscular Hemoglobin 26.4 pg (26-34); Mean Corpuscular Volume 85.1 fl (80-100); Mean Platelet Volume 8.8 fl (7.4-10.4); Monocytes Absolute Auto 0.7 K/mm3 (0.1-0.6); Monocytes Percent Auto 9.3 % (2.6-8.5); Neutrophils Absolute Auto 4.6 K/mm3 (1.3-6.7); Neutrophils Percent Auto 66.4 % (45.5-73.1); Platelet Count Result 481 k/mm3 (150-375); Red Blood Count 4.44 M/mm3 (4.2-5.4); Red Cell Distribution Width 14.8 % (11.5-14.5); Reticulocyte Hemoglobin Conten 30.6 pg (28.2-36.6); Reticulocyte Percent 2.37 % (0.7-4.3); Reticulocytes Absolute 0.11 10^6/uL (0.02-0.10)
[2024-05-17 10:29] LABS: Anion Gap 9 mmol/L (4-12); Blood Urea Nitrogen 12 mg/dL (7-17); Calcium 9.1 mg/dL (8.4-10.2); Carbon Dioxide 27 mmol/L (22-30); Chloride 100 mmol/L (98-107); Estimated Glomerular Filt Rate > 60; Glucose 93 mg/dL (65-110); Potassium 4.1 mmol/L (3.4-5.0); Sodium 136 mmol/L (137-145)
[2024-05-17 10:31] LABS: Rheumatoid Factor < 12.0 IU/ML (<12)
[2024-05-18 08:33] LABS: ANA Cascade Screen NEGATIVE (NEGATIVE)
== END 2024-05-17 09:54 | disposition home or self-care (01) ==
LOC: ANHLAB 09:57
PROVIDERS: PCP Internal Medicine; Visit Provider Nurse Practitioner
DX: R73.03 Prediabetes (principal); I31.39 Other pericardial effusion (noninflammatory); J90 Pleural effusion, not elsewhere classified; D64.9 Anemia, unspecified; B35.1 Tinea unguium
CPT/HCPCS: 36415; 80048; 84443; 85025; 85046; 86038; 86225; 86235; 86364; 86430

== ENCOUNTER 2024-07-17 02:02 | Day surgery (SDC) | payer OTHER, SELFPAY ==
[2024-07-05 09:56] VITALS: BMI 21.5
--- NOTE | 2024-07-10 10:34 | SUR.PREOP ---
07/10/24 1320 Patient's chart reviewed with Dr. Taveras. said it was ok for pt to proceed with procedure.
--- NOTE | 2024-07-10 10:57 | PC.NURSE ---
Chart sent to Anesthesia Dr. Ricketts to review and he states patient is clear to proceed.
[2024-07-17 10:20] VITALS: BP 110/47; PULSE 76; RESP 18; TEMP 36.1; O2SAT 100
[2024-07-17] MEDS: LACTATED RINGERS 1,000 ML 150 ML IV CONT (10:34)
--- NOTE | 2024-07-17 10:38 | WPDANESEPPF ---
Anes - Initial Pre Proc Eval Procedure: Operation Date: 07/17/24 11:00 Proposed Procedures p Colonoscopy - Celso Mcclure MD Date/Time: 07/17/24 10:38 Surgeon: Celso Mcclure MD Pre Op Diagnosis: Anemia, unspecified Patient Data Age: 73 Gender: F Height: 1.52 m Weight: 49.3 kg Last Vital Signs Temp 97 F L 07/17/24 10:20 Pulse 76 07/17/24 10:20 Resp 18 07/17/24 10:20 BP 110/47 L 07/17/24 10:20 Pulse Ox 100 07/17/24 10:20 O2 Del Method Room Air 07/17/24 10:20 Allergies Allergy/AdvReac Type Severity Reaction Status Date / Time Penicillins Allergy Itchy Verified 07/17/24 10:12 swollen throat Sulfa (Sulfonamide Allergy Rash Verified 07/17/24 10:12 Antibiotics) Home Medications Medication Instructions Recorded Confirmed Type alprazolam 0.25 mg tablet (Xanax) 0.25 mg PO DAILY PRN Anxiety 06/11/21 07/17/24 History biotin 1 mg capsule 5 mg PO DAILY 06/11/21 07/17/24 History calcium 600 mg (as 1 cap PO DAILY 06/11/21 07/17/24 History carbonate)-vitamin D3 12.5 mcg (500 unit) capsule (Calcium with Vit D3) clobetasol 0.05 % topical cream 1 applic topical DAILY PRN eczema 06/11/21 07/17/24 History docusate sodium 100 mg capsule 100 mg PO DAILY 06/11/21 07/17/24 History (Stool Softener) ketotifen fumarate 0.025 % (0.035 1 drp EACH EYE BID PRN Dry Eyes 06/11/21 07/17/24 History %) eye drops multivitamin 1 tablet PO DAILY 06/11/21 07/17/24 History omega-3 fatty acids 1,000 mg 1,000 mg PO DAILY 06/11/21 07/17/24 History capsule (Fish Oil Concentrate) psyllium husk 0.4 gram capsule 0.4 g PO DAILY 06/11/21 07/17/24 History (Daily Fiber) triamcinolone acetonide 0.1 % 1 applic topical DAILY PRN Rash 06/11/21 07/17/24 History topical cream halcinonide 0.1 % topical cream 1 applic topical BID PRN eczema 09/28/23 07/17/24 History (Halog) nitroglycerin 0.4 mg sublingual 0.4 mg sublingual Q5M PRN Chest 09/28/23 07/17/24 History tablet Pain sacubitril 97 mg-valsartan 103 mg 1 tablet PO BID 09/28/23 07/17/24 History tablet (Entresto) Bifidobacterium infantis 4 mg 4 mg PO DAILY 02/29/24 07/17/24 History capsule (Align) fluticasone propionate 50 See Rx Instructions .Route 04/18/24 07/17/24 History mcg/actuation nasal .COMPLEX PRN Congestion spray,suspension metoprolol succinate 50 mg 100 mg PO DAILY 04/30/24 07/17/24 History tablet,extended release 24 hr omeprazole 20 mg capsule,delayed 20 mg PO DAILY 05/01/24 07/17/24 History release cholecalciferol (vitamin D3) 25 25 mcg PO DAILY 07/05/24 07/17/24 History mcg (1,000 unit) capsule (Vitamin D3) furosemide 20 mg tablet (Lasix) 20 mg PO PRN PRN swelling 07/05/24 07/17/24 History sertraline 25 mg tablet 25 mg PO DAILY 07/17/24 07/17/24 History sertraline 50 mg tablet 50 mg PO DAILY 07/17/24 07/17/24 History Patient hx anesthesia problems: none Family hx anesthesia problems: none Results Review: All pre-operative results and documents have been reviewed as part of the pre-operative evaluation. [facility] Past Medical History Medical History Allergies Anxiety Arthritis Cancer Dilated cardiomyopathy GERD (gastroesophageal reflux disease) Headache IBS (irritable bowel syndrome) Left bundle branch block Lichen sclerosus Myopic degeneration Surgical History Surgical History History of cardiac cath History of tonsillectomy X2 Hx of removal of ovary Left Family History Family History Father Diabetes mellitus Hypertension Depression Macular degeneration Mother Pancreatic cancer Skin cancer Bladder cancer Sibling Hypertension Grandparent Pancreatic cancer Diabetes mellitus Hypertension Heart disease Social History Social History (Reviewed
--- NOTE | 2024-07-17 11:05 | PM.HPGS ---
History of Present Illness History of Present Illness Consent: Risks, benefits, and alternatives have been discussed and questions answered. Patient agrees to proceed with procedure. Chief complaint: Anemia, unspecified Narrative: Celeste Doll is a 73 year old female here for colonoscopy, had anemia hgb 10 but no overt gib, last one in 2017 Review of Systems Review of Systems: All systems reviewed & are unremarkable except as noted in HPI and below PMFSH Past Medical History Medical History Allergies Anxiety Arthritis Cancer Dilated cardiomyopathy GERD (gastroesophageal reflux disease) Headache IBS (irritable bowel syndrome) Left bundle branch block Lichen sclerosus Myopic degeneration Surgical History Surgical History History of cardiac cath History of tonsillectomy X2 Hx of removal of ovary Left Family History Family History Father Diabetes mellitus Hypertension Depression Macular degeneration Mother Pancreatic cancer Skin cancer Bladder cancer Sibling Hypertension Grandparent Pancreatic cancer Diabetes mellitus Hypertension Heart disease Social History Social History Smoking status: Never smoker Alcohol intake: never Substance use: never Substance use type: does not use Do You Feel Safe in your Home?: Yes Lack of Transportation: No Lack of Food: Never True Current Housing: I Have Housing Concerned About Future Housing: No Difficulty Paying Gas/Electric Bills: No Difficulty Paying for Meds: No Currently Unemployed: No Education: Bachelor's Degree Difficulty w/ Childcare or Family Care: No Living arrangements: with family Spiritual care concerns: No Meds Home Medications and Allergies Home Medications Medication Instructions Recorded Confirmed Type alprazolam 0.25 mg tablet (Xanax) 0.25 mg PO DAILY PRN Anxiety 06/11/21 07/17/24 History biotin 1 mg capsule 5 mg PO DAILY 06/11/21 07/17/24 History calcium 600 mg (as 1 cap PO DAILY 06/11/21 07/17/24 History carbonate)-vitamin D3 12.5 mcg (500 unit) capsule (Calcium with Vit D3) clobetasol 0.05 % topical cream 1 applic topical DAILY PRN eczema 06/11/21 07/17/24 History docusate sodium 100 mg capsule 100 mg PO DAILY 06/11/21 07/17/24 History (Stool Softener) ketotifen fumarate 0.025 % (0.035 1 drp EACH EYE BID PRN Dry Eyes 06/11/21 07/17/24 History %) eye drops multivitamin 1 tablet PO DAILY 06/11/21 07/17/24 History omega-3 fatty acids 1,000 mg 1,000 mg PO DAILY 06/11/21 07/17/24 History capsule (Fish Oil Concentrate) psyllium husk 0.4 gram capsule 0.4 g PO DAILY 06/11/21 07/17/24 History (Daily Fiber) triamcinolone acetonide 0.1 % 1 applic topical DAILY PRN Rash 06/11/21 07/17/24 History topical cream halcinonide 0.1 % topical cream 1 applic topical BID PRN eczema 09/28/23 07/17/24 History (Halog) nitroglycerin 0.4 mg sublingual 0.4 mg sublingual Q5M PRN Chest 09/28/23 07/17/24 History tablet Pain sacubitril 97 mg-valsartan 103 mg 1 tablet PO BID 09/28/23 07/17/24 History tablet (Entresto) Bifidobacterium infantis 4 mg 4 mg PO DAILY 02/29/24 07/17/24 History capsule (Align) fluticasone propionate 50 See Rx Instructions .Route 04/18/24 07/17/24 History mcg/actuation nasal .COMPLEX PRN Congestion spray,suspension metoprolol succinate 50 mg 100 mg PO DAILY 04/30/24 07/17/24 History tablet,extended release 24 hr omeprazole 20 mg capsule,delayed 20 mg PO DAILY 05/01/24 07/17/24 History release cholecalciferol (vitamin D3) 25 25 mcg PO DAILY 07/05/24 07/17/24 History mcg (1,000 unit) capsule (Vitamin D3) furosemide 20 mg tablet (Lasix) 20 mg PO PRN PRN swelling 07/05/24 07/17/24 History sertraline 2
[2024-07-17 11:28] VITALS: BP 81/46; PULSE 64; RESP 18; O2SAT 98
[2024-07-17 11:38] VITALS: BP 97/55; PULSE 60; RESP 18; O2SAT 100
[2024-07-17 11:48] VITALS: BP 97/57; PULSE 60; RESP 18; O2SAT 100
== END 2024-07-17 11:55 | disposition home or self-care (01) ==
PROVIDERS: PCP Internal Medicine; Referring Provider Nurse Practitioner; Visit Provider Internal Medicine Gastroenterology
PROC: 0DJD8ZZ Inspection of Lower Intestinal Tract, Via Natural or Artificial Opening Endoscopic (ICD-10-PCS; CPT 45378; principal; 2024-07-17 11:00)
DX: Z12.11 Encounter for screening for malignant neoplasm of colon (principal); K63.5 Polyp of colon; K64.8 Other hemorrhoids; D64.9 Anemia, unspecified; F41.9 Anxiety disorder, unspecified; K21.9 Gastro-esophageal reflux disease without esophagitis; K58.9 Irritable bowel syndrome, unspecified; L90.0 Lichen sclerosus et atrophicus; Z98.890 Other specified postprocedural states; Z98.61 Coronary angioplasty status; Z85.9 Personal history of malignant neoplasm, unspecified; Z86.79 Personal history of other diseases of the circulatory system; Z80.0 Family history of malignant neoplasm of digestive organs; Z84.0 Family history of diseases of the skin and subcutaneous tissue; Z80.52 Family history of malignant neoplasm of bladder; Z82.49 Family history of ischemic heart disease and other diseases of the circulatory system
CPT/HCPCS: 45385; 88305; J2003; J2704; J7120

== ENCOUNTER 2024-07-24 09:00 | Outpatient (CLI) | payer OTHER, SELFPAY ==
--- NOTE | 2024-07-24 13:16 | WPDPFTINT ---
PFT Procedure Performed PFT Procedure Performed Spirometry with Pre/Post Bronchodilator Plethysmography (Lung Vol) Diffusing Cap (DLCO) Flow Vol Loop PFT Interpretation This is a pulmonary function test with pre and post-bronchodilator spirometry, plethysmography and diffusing capacity. The test was performed and results interpreted in accordance with the 2019 and 2005 ATS/ERS Task Force guidelines respectively using the Global Lung Function Initiative-2012 reference equations. Patient demonstrated good effort and cooperation. Reproducibility criteria were met. The quality of the pre bronchodilator spirometry maneuver was Grade B and post bronchodilator spirometry maneuver was Grade B. Findings: Spirometry: There is decreased maximal expiratory airflow at all lung volumes. The contour the inspiratory flow tracing is normal. The pre bronchodilator FVC is 1.83 L, 78% predicted. The pre bronchodilator FEV1 is 1.24 L, 68% predicted. The pre bronchodilator FEV1: FVC ratio 68%. The post bronchodilator FVC is 2.04 L, representing an 11% increase. The post bronchodilator FEV1 is 1.14 L, representing an 8% decrease. The post bronchodilator FEV1: FVC ratio is 56%. Plethysmography: The total lung capacity is 4.45 L, 100% predicted. The functional residual capacity is 2.92 L, 116% predicted. The residual volume is 2.41 L, 117% predicted. Diffusing capacity: The diffusing capacity unadjusted for hemoglobin and carboxyhemoglobin is 10.8, 59% predicted. The diffusing capacity adjusted for alveolar volume is 3.92, 89% predicted. Impression: There is a moderate obstructive abnormality. There is no significant improvement after inhaling a single dose of albuterol. The lung volumes are normal. The diffusing capacity unadjusted for hemoglobin and carboxyhemoglobin is moderately decreased and normalizes when adjusted for alveolar volume. There are no prior studies for comparison
== END 2024-07-24 09:01 | disposition home or self-care (01) ==
PROVIDERS: PCP Internal Medicine; Visit Provider Nurse Practitioner
DX: J98.6 Disorders of diaphragm (principal); R94.2 Abnormal results of pulmonary function studies
CPT/HCPCS: 94060; 94726; 94729

== ENCOUNTER 2024-10-11 12:44 | Outpatient (CLI) | payer OTHER, SELFPAY ==
--- NOTE | ~2024-10-11 | CT_ITS ---
EXAMINATION: CT diagnostic chest wo con DATE: 10/11/2024 13:10 INDICATION: J90 - Pleural effusion, not elsewhere classified TECHNIQUE: Computed tomography (CT) of the chest was performed with 100 mL Omnipaque-350 intravenous contrast. Automated exposure control and iterative reconstruction technique were employed. The dose-l ength product was 126.87 mGy-cm. COMPARISON: 05/01/2024. FINDINGS: CHEST: Thoracic aorta: No significant dilation or calcification. Lung parenchyma and airways: 6 mm groundglass nodule in the right right upper lobe. Minimal dependent atelectasis. Thoracic inlet, axillae and chest wall: No thyroid or soft tissue mass. No axillary lymphadenopathy. Right chest pacer/AICD with leads in good position. Mediastinum: No mass or lymphadenopathy. Heart and pericardium: Normal heart size. No pericardial effusion. Coronary artery calcifications: Absent. Pleura: No effusion or mass. Left hemidiaphragm elevation, sniff test performed on 02/29/2024 which rev ealed left hemidiaphragm paralysis. Upper abdomen: No significant finding. Thoracic bones: No acute osseous finding in the chest. IMPRESSION: 6 mm right upper lobe groundglass, subsolid pulmonary nodule, recommend low-dose noncontrast CT of th e chest at 6-12 months to confirm persistence. Left hemidiaphragm paralysis. No pleural effusion detected. Reviewed, dictated and finalized at location K. RVATORY DIRECTOR IMPRESSION: 6 mm right upper lobe groundglass, subsolid pulmonary nodule, recommend low-dos e noncontrast CT of the chest at 6-12 months to confirm persistence. Left hemidiaphragm paralysis. No pleural effusion detected.
--- OUTSIDE RECORDS SUMMARY | 2024-10-17 06:48 | XMS_ITS | Clinical Summary ---
Author Organization [facility] Address [address] [place] [address]. [place], [place] [id number] [place] [id number] Care Team Providers Care Supervisor Respiratory Name Role Phone Unavailable Primary Care Provider Unavailabl e Social History Tobacco Use Types Packs/Day Years Used Date Smoking Tobacco: Never Assessed Comments Unknown Sex and Gender Information Value Date Recorded Sex Assigned at Not on file Legal Sex Female 6:17 PM CDT Gender Identity Not on file Sexual Orientation Not on file Plan of Treatment Health Maintenance Due Date Last Done Comments Colorectal Cancer Screening Colonoscopy (10 Years) 1949 Hepatitis C 12/08/1967 DTaP, Tdap and Td Vaccines ( 1 - Tdap) 1968 Mammogram Screening 1989 Zoster Vaccines (1 of 2) 12/08/1999 Dexa Scan (General) 2014 Pneumococcal Vaccine: 65+ Ye ars (1 of 1 - PCV) 2014 COVID-19 Vaccine (2023-2 5 season) 2024 Influenza Adult (#1) 2024 RSV Immunization or 60+ Years (1 - 1-dose 75+ series) 2024 Meningococcal Vaccine Aged Out No brooklyn narinder eligible based on patient's age to complete this topic RSV Immunizations Under 20 Months Aged Out No longer eligible based on patient's age to complete this topic
--- OUTSIDE RECORDS SUMMARY | 2024-10-17 06:49 | XMS_ITS ---
Author Organization [facility] Address [address] [facility] [place] [address] Care Team Providers Care Account Underwriter Name Role Phone Jonathan Camejo DO Primary Care Provider [phone] Active Problems Problem Noted Date Diagnosed Date Nuclear sclerotic cataract of left eye Pericardial effusion 06/19/2024 Visit for wound check 03/11/2024 Presence of automatic cardioverter/defibrillator (AICD) 03/04/2024 Presence of biventricular au tomatic cardioverter/defibrillator (AICD) 11/30/2023 Overview (03/05/2024): Juarez Holtant CHEMIST ASSISTANT-D ICD. Dx; Dilated CM, LBBB, HF w/reduced EF. DOI 12/25/2023-Johnnie. Jeffrey remote. 03/04/2024-Atrial lead explanted, new atrial lead model 2088TC/52 reimplanted- Johnnie. Dilated cardiomyopathy (CMS/HCC) 09/27/2023 HFrEF (heart failure with re duced ejection fraction) (CMS/HCC) 09/27/2023 Chronic fatigue 07/25/2023 Primary hypertension 07/14/2023 Mixed hyperlipidemia 07/14/2023 Abnormal stress test 07/14/2023 LBBB (left bundle branch block) 07/14/2023 Chest pain 07/14/2023 Abdominal pain 06/14/2019 Gastro-esophageal reflux disease without esophag itis 06/14/2019 Generalized osteoarthrosis, unspecified site Other abnormal glucose 06/14/2019 Swelling, mass, or lump in chest 06/14/2019 Atrophy of vulva 06/14/2019 Lichen sclerosus et atrophicus 01/08/2016 Postmenopausal status 12/26/2013 Basal cell carcinoma of skin 02/27/2013 Contact dermatitis and other eczema 02/29/2012 Herpes simplex 12/19/2007 Other seborrheic keratosis 08/02/2006 Other depressive disorder 03/30/2005 Spasm of muscle 03/29/2005 Anxiety state 04/07/2004 Edema 04/07/2004 Other chronic allergic conjunctivitis 04/09/2003 Osteoporosis 07/08/2002 Pain in joint 07/08/2002 Headache 03/22/2002 Allergic rhinitis 01/09/2001 Endometriosis 01/09/2001 Other atopic dermatitis and related conditions 0 01/09/2001 Current Oncology Plans No current plan information found. Past Plans No past plan information found. Radiation Treatments * No radiation treatments are documented for this patient in [facility]. Treatments may have been administered in another system. Lifetime Dose Tracking * Chemical Lifetime Dose Automatic Entry Manual Entr y Air kerma at the reference point (Ka,r) 223 mGy 0 mGy 223 mGy Resolved Problems Problem Noted Date Diagnosed Date Resolved Date Nuclear sclerotic cataract of right eye 08/13/2024 10/09/2024
--- OUTSIDE RECORDS SUMMARY | 2024-10-17 06:49 | XMS_ITS ---
Author Organization [facility] Address [address] [facility] [address] [place] [address] Care Team Providers Care Tobacco Warehouse Manager Name Role Phone zprabhjotMigrromario, zzzzProvider Unavailable Unav ailable REASON FOR VISIT [facility] Encounters Encounter Location Date Provider Diagnosis [facility] [address] [facility] [address] [place] [address] 07/16/2023 zzzzProvider zzzzMigration Plan Of Treatment No Information Progress Notes * Celeste CAMPUZANO RDOB:1950 (73 yo F)Acc No.[id number]:07/16/2023 Patient:?Celeste CAMPUZANO :1950???Age:72 Y???Sex:Female [address] [facility] [address] Subjective: * Chief Complaints: * ???[facility] * Medical History:? * Surgical History:? * Hospitalization/Major Diagno stic Procedure:? * Medications:? Objective: * Vitals:? * Physical Examination:? Assessment: Plan: * Treatment: * Procedure Codes:? * * Date:?
--- OUTSIDE RECORDS SUMMARY | 2024-10-17 06:49 | XMS_ITS | Patient Health Record ---
Author Organization [facility] Address [address] [facility] [address] [place] [address] Support Name Relationship Address Phone Celeste Doll Guarantor Unknown [phone] Reason For Referral No Information Plan Of Treatment No Information Insurance Providers Payer Name Payer Address Payer Phone Subscriber Number Group Number Insured Name Patient Relationship to Insured Coverage Start Date Coverage End Date [employer] - [employer] [address] [place], [place] [id number] Celeste Doll Self - patient is the insured 1
--- OUTSIDE RECORDS SUMMARY | 2024-10-17 06:49 | XMS_ITS | Clinical Summary ---
Author Organization [facility] Address [address] [facility] [place] [address] Care Team Providers Care Fourth Grade Teacher Name Role Phone Jonathan Camejo DO Primary Care Provider [phone] Allergies Active Allergy Reactions Criticality Noted Date Comments Chlorhexidine Rash Medium 07/25/2023 Ketoprofen Rash Medium 03/29/2005 Other Rash Medium 03/04/2024 Broke out in a rash after pacemaker insertion procedure 12/25/2023. Unknown the reason- possibly antibiotic Penicillins Swelling,Rash,Other (See comments),Angioedem a High 12/19/2011 Throat swelling Penicillin allergy history completed Sulfa (Sulfonamide Antibiotics) Rash Medium 12/19/2011 Medications Bifidobacterium infantis (ALIGN) 4 mg capsuleIndications :gut health Take 1 capsule (4 mg total) by mouth every morning Active calcium carbonate (CALCI-MIX) 500 mg calcium (1,250 mg) capsuleIndications :Hypocalcemia Prevention Take 1 capsule (1,250 mg total) by mouth daily after lunch 06/13/20 18 Active fluticasone propionate (FLONASE) 50 mcg/actuation nasal sprayIndications:A llergic Conjunctivitis,All ergic Rhinitis Administer 1 spray into each nostril daily as needed for allergies 06/13/20 18 Active halcinonide (HALOG) 0.1 % creamIndications:e czema Apply 1 Application topically every 12 (twelve) hours as needed (eczema) Active ketotifen (ZADITOR) 0.025 % ophthalmic solutionIndication s:Allergic Conjunctivitis Administer 1 drop into both eyes every 12 (twelve) hours as needed (dry eyes) Active omega-3 fatty acids (FISH OIL CONCENTRATE) 1,000 mg capsuleIndications :hypertriglyceride felice Take 1 capsule by mouth nightly 04/13/20 17 Active triamcinolone (KENALOG) 0.1 % ointmentIndication s:skin rash Apply 1 Application topically 2 (two) times a day as needed for irritation 06/17/20 19 Active ALPRAZolam (XANAX) 0.25 mg tabletIndications: anxiety Take 1 tablet (0.25 mg total) by mouth nightly as needed for anxiety or sleep 05/26/20 21 Active clobetasoL (TEMOVATE) 0.05 % ointment Apply nightly to affected area 30 g 2 06/18/20 21 Active Additional Information Patient taking differently: 1 Application topical Nightly PRN, eczema, Apply nightly to affected area,Indications: eczema, Informant: Self, Reported on 10/09/2024 nitroglycerin (NITROSTAT) 0.[address] 1 tablet (0.4 mg total) under the tongue every 5 (five) minutes as needed for chest pain Max 3 doses. 60 tablet 3 07/14/20 23 Active Additional Information Patient taking differently:0.4 mg sublingual Every 5 min PRN, chest pain,Max 3 doses.Last used March/2024, Indications: acute episode of anginal pain, Informant: Self, Reported on 10/08/2024 cholecalciferol (Vitamin D3) 1,000 unit capsuleIndications :Vitamin D Deficiency Take 1 capsule (1,000 Units total) by mouth daily after lunch Active docusate sodium (COLACE) 100 mg capsuleIndications :constipation Take 1 capsule (100 mg total) by mouth nightly Active psyllium (METAMUCIL) powderIndications: constipation Take 1 packet by mouth every evening Active sertraline (ZOLOFT) 50 mg tabletIndications: Anxiety with Depression Take 1.5 tablets (75 mg total) by mouth nightly for 90 days 11/24/19 24 Active biotin 5 mg capsuleIndications :Biotin Deficiency Take 1 capsule (1 tablet total) by mouth every morning Active sacubitriL-valsart an (ENTRESTO) 97-103 mg tabletIndications: chronic heart failure Take 1 tablet by mouth 2 (two) times a day 60 tablet 6 05/10/20 24 Active furosemide (LASIX) 20 mg tabletIndications: Edema Take 1 tablet (20 mg total) by mouth as needed (swelling) 04/19/20 24 Active onujtsce-jtb-uygg- FA-vit K-lut 8 mg iron-400 mcg-50 mcg tabletIndications: supplement Take 0.5 tablets by mouth 2 (two) times a day Active metoprolol XL (TOPROL-XL) 100 mg 24 hr tabletIndications: Dilated cardiomyopathy (CMS/HCC) (HCC) Take 1 tablet by mouth once daily 90 tablet 1 09/04/20 24 Active Additional Information Patient taking differently:100 mg oralNightly, Indications: hypertension, Informant: Self, Reported on 10/09/2024 albuterol (PROAIR RESPICLICK) 90 mcg/actuation inhalerIndications :Bronchospasm Prevention Inhale 2 puffs every 8 (eight) hours as needed for wheezing or shortness of breath 07/25/20 24 Active acetaminophen (TYLENOL) 500 mg tabletIndications: Pain Take 1 tablet (500 mg total) by mouth every 6 (six) hours as needed for pain Active budesonide-formote roL (SYMBICORT) 160-4.5 mcg/actuation inhalerIndications :Maintenance Therapy for Asthma Inhale 2 puffs 2 (two) times a day Rinse mouth with water after use. Do not swallow. Active omeprazole (PriLOSEC) 20 mg capsuleIndications :Treatment of Non-Bleeding Gastric Disorder Take 1 capsule (20 mg total) by mouth nightly 025 Discontin ued(Error ) Active Problems Problem Noted Date Diagnosed Date Nuclear sclerotic cataract of left eye Pericardial effusion 06/19/2024 Visit for wound check 03/11/2024 Presence of automatic cardioverter/defibrillator (AICD) 03/04/2024 Presence of biventricular au tomatic cardioverter/defibrillator (AICD) 11/30/2023 Overview (03/05/2024): Juarez Martin HAND ROUNDER-D ICD. Dx; Dilated CM, LBBB, HF w/reduced EF. DOI 12/25/2023-Kahanda. Murphy remote. 03/04/2024-Atrial lead explanted, new atrial lead model 2087TC/52 reimplanted- Kahanda. Dilated cardiomyopathy ([facility]) 09/27/2023 HFrEF (heart failure with re duced ejection fraction) ([facility]) 09/27/2023 Chronic fatigue 07/25/2023 Primary hypertension 07/14/2023 [...] atopic dermatitis and related conditions 0 01/09/2001 Resolved Problems Problem Noted Date Diagnosed Date Resolved Date Nuclear sclerotic cataract of right eye 08/13/2024 10/09/2024 Encounters Date Type Department Care Team Description 10/09/2024 8:30 AM RAILWAY SWITCH OPERATOR - 10/09/2024 9:30 AM RAILWAY SWITCH OPERATOR Surgery [facility] [address] [place] [id number] Kahlil Tobin MD EXTRACTION CATARACT - PHACOEMULSIFICATION AND LENS IMPLANT 10/09/2024 8:23 AM RAILWAY SWITCH OPERATOR Anesthesia Event [facility]) [address] [place] [id number] Farzana Chawla MD Mallette, Allison Anne, NP 10/09/2024 6:16 AM RAILWAY SWITCH OPERATOR - 10/09/2024 9:53 AM RAILWAY SWITCH OPERATOR Hospital Encounter [facility] [address] [place] [phone] Kahlil Tobin MD Discharge Disposition: Discharge to home or self care 09/13/2024 11:00 AM RAILWAY SWITCH OPERATOR Office Visit [facility] [address] [place] [address] Alona Baez NP Dilated cardiomyopathy (CMS/HCC) (HCC) (Primary Dx); LBBB (left bundle branch block); Presence of biventricular automatic cardioverter/defibrillato r (AICD) 07/29/2024 10:15 AM RAILWAY SWITCH OPERATOR Ancillary Procedure [facility] [address] [place] [address] HFrEF (heart failure with reduced ejection fraction) (CMS/HCC) (HCC); LBBB (left bundle branch block); Presence of biventricular automatic cardioverter/defibrillato r (AICD); Pericardial effusion 07/23/2024 9:00 AM CDT Ancillary Procedure [facility] [address] [facility] [address] [place] [phone] HFrEF (heart failure with reduced ejection fraction) (CMS/HCC) (HCC) (Primary Dx); LBBB (left bundle branch block); Dilated cardiomyopathy (CMS/HCC) (HCC); Presence of automatic cardioverter/defibrillato r (AICD) 07/17/2024 Orders Only [facility] Information Management [address] [place] [id number] Rhonda Villafana MD from Last 3 Months Surgical History Surgery Date Site/Laterality Comments [place] DILATION & CURETTAGE DX&/THER NONOBSTETRIC 09/25/1998 - 09/24/1999 Dilation And Curettage [place] OOPHORECTOMY PARTIAL/TOTAL UNI/BI left NY TONSILLECTOMY PRIMARY/SECONDARY <AGE 11 1955 and 1968 [place] LIG/TRNSXJ FLP TUBE ABDL/VAG APPR UNI/BI 09/25/1998 - 09/24/1999 Tubal Ligation CARDIAC CATHETERIZATION 07/20/2023 COLONOSCOPY 06/25/2024 - 07/25/2024 SKIN CANCER EXCISION scalp & face in 1980 and 1999 CARDIAC DEFIBRILLATOR PLACEMENT 12/25/2023 Pizarro CRTD, Left chest OTHER SURGICAL HISTORY 03/04/2024 Pizarro ICD repositioned due to a lead that pulled out CATARACT EXTRACTION W/ INTRAOCULAR LENS IMPLANT 10/09/2023 Right Medical History Medical History Date Comments Basal cell carcinoma of skin Bas al cell adenocarcinoma - (Added by TW Conv) Personal history of other sp ecified conditions History of breast lump - (Ad ded by TW Conv) Hyperlipidemia Anxiety Abnormal stress test Chest pain SOB (shortness of breath) on exertion Motion sickness Hypertension GERD (gastroesophageal reflux disease) Prediabetes Eczema Myopic degeneration Toenail fungus PONV (postoperative nausea and vomiting) year ago pt reports no issue recently Cardiomyopathy, dilated, non ischemic (CMS/HCC) (HCC) Bundle branch block, left Depression anxiety Arthritis Cataract Presence of biventricular au tomatic cardioverter/defibrillator (AICD) Diaphragm paralysis Shortness of breath Heart disease 07/18 Family History Medical History Relation Name Comments Diabetes Brother Jeremy Lakhani Hypertension Brother Jeremy Lakhani Breast cancer Cousin 1 Breast cancer Cousin 2 Arthritis Father Yrn Lakhani Depression Father Yrn Lakhani Diabetes Father Yrn Lakhani Diabetes type II Father Yrn Lakhani Type 2 Diabetes Mellitus - Uncomplicated, Uncontrolled - (Added by TW Conv) Hearing loss Father Yrn Lakhani Hypertension Father Yrn Lakhani Hypertensio n - (Added by TW Conv) Memory loss Father Yrn Lakhani Vision loss Father Yrn Lakhani Breast cancer Father's Sister Arthritis Mother Yaneth Lakhani Cancer Mother Yaneth Lakhani Pancreatic cancer Mother Yaneth Lakhani Family h istory of pancreatic cancer - (Added by TW Conv) Rashes / Skin problems Mother Yaneth Lakhani pancreatic cancer Mother Yaneth Lakhani Breast cancer Other Breast Cancer - (Added by TW Conv) Pancreatic cancer Paternal Grandmother Anesthesia problems Neg Hx Relation Name Status Comments Brother Jeremy Lakhani Cousin 1 Cousin 2 Alive Father Yrn Lakhani Alive Father's Sister Mother Yaneth Lakhani Other Paternal Grandmother Social History Tobacco Use Types Packs/Day Years Used Date Smoking Tobacco: Never Passive Smoke Exposure: Past Smokeless Tobacco: Never Tobacco Cessation:Counseling Given: Not Answered Alcohol Use Standard Drinks/Week Comments No 0 (1 standard drink = 0.6 oz pur e alcohol) AUDIT-C Answer Date Recorded Q1: How often do you have a drink containing alcohol? Never 10/09/2024 Q2: How many drinks containi ng alcohol do you have on a typical day when you are drinking? Patient does not drink Q3: How often do you have si x or more drinks on one occasion? Never 10/09/2024 Exercise Vital Sign Answer Date Recorde d Days of Exercise per Week 5 days 2018 Minutes of Exercise per Session 40 min 06/14/2019 Personal Safety Answer Date Recorded Have you ever been in or are you currently in a harmful physical or emotional relationship or is someone making you feel afraid or unsafe? Denies 10/09/2024 Comments No Sex and Gender Information Value Date Recorded Sex Assigned at Not on file Legal Sex Female 2:59 AM RAILWAY SWITCH OPERATOR Gender Identity Female 02/14/2023 2:01 PM CDT Sexual Orientation Straight 02/14/2023 2: 01 PM CDT Obstetrics History Para Term AB IAB SAB Ectopic Multiple Livin g Live Births 0 0 0 0 0 0 0 0 0 0 0 Last Filed Vital Signs Vital Sign Reading Time Taken Comments Blood Pressure 120/67 10/09/2024 9:20 AM RAILWAY SWITCH OPERATOR Pulse 75 10/09/2024 9:20 AM RAILWAY SWITCH OPERATOR Temperature 36 ??C (96.8 ??F) 10/09/2024 9:08 AM RAILWAY SWITCH OPERATOR Respiratory Rate 13 10/09/2024 9:20 AM RAILWAY SWITCH OPERATOR Oxygen Saturation 98% 10/09/2024 9:20 AM RAILWAY SWITCH OPERATOR Inhaled Oxygen Concentration - - Weight 49.9 kg (110 lb) 10/09/2024 7:30 AM RAILWAY SWITCH OPERATOR Height 152.4 cm (5') 10/09/2024 7:30 AM RAILWAY SWITCH OPERATOR Body Mass Index 21.48 10/09/2024 7:30 AM RAILWAY SWITCH OPERATOR Plan of Treatment Upcoming Encounters Date Type Department Care Team (Latest Contact Info) Description 10/23/2024 8:30 AM RAILWAY SWITCH OPERATOR Hospital Encounter [facility] [address] [place] [phone] Kahlil Tobin MD [address] [place] [address] [address] [place] [address] 10/23/2024 8:30 AM RAILWAY SWITCH OPERATOR Anesthesia Event [facility] [address] [place] [address] Cecy Sanchez NP [address] [facility] [phone] [place] [address] 10/23/2024 8:30 AM RAILWAY SWITCH OPERATOR - 10/23/2024 9:30 AM RAILWAY SWITCH OPERATOR Surgery [facility] [address] [place] [address] Kahlil Tobin MD [address] [facility] [address] [place] [address] EXTRACTION CATARACT - PHACOEMULSIFICATION AND LENS IMPLANT Scheduled Procedures Name Priority Associated Diagnoses Date/Ti me EXTRACTION CATARACT - PHACOEMULSIFICATION AND LENS IMPLANT Nuclear sclerotic cataract of left eye 10/23/2024 8:30 AM RAILWAY SWITCH OPERATOR Health Maintenance Due Date Last Done Comments Colon Cancer Screening-Colonoscopy 1950 Depression Screening 1950 Hepatitis C Screening 1950 Hepatitis B Screening 12/08/1967 Well Visit 65+ 2014 Osteoporosis Screening-Bone Density Scan 09/13/2021 09/13/2019, 01/27/2014 Breast Cancer Screening-Mammogram 06/04/2025 06/04/2024, 04/12/2023, 03/11/2022, Additional history exists Fall Risk Assessment 10/09/2025 10/09/2024 DTaP/Tdap/Td Vaccine (2 - Td or Tdap) 04/14/2027 04/14/2017 Pneumococcal vaccine 65+ Completed 09/25/2016, 05/27 Zoster Vaccine Completed 04/10/2019, 01/10/2019 Covid-19 Vaccine Completed 06/07/2024, , 06/13/2022, Additional history exists Influenza Vaccine Completed 06/26/2024, , 07/08/2022, Additional history exists Medical Devices Implanted Type Area Coil Winder Strap Device Identifier Shelf Expiration Date Model / Serial / Lot Pizarro Vascular Defib Cardiac [id number] [place] Hf Df4 Is-4 Is-1 Cnctr [id number] - [id number] - [id number] Implanted:Qty: 1 on 12/25/2023 by Vince Blair MD at [facility] ICD Left: Infraclavicular Anterior Chest Wall [employer] Vascular 10/25/2025 [id number] / [id number] / [employer] Durata 6.8fr 58cm 1 Coil True Bipolar Active Fixation Extendable 7122q/58 - [id number] - [id number] Implanted:Qty: 1 on 12/25/2023 by Vince Blair MD at [facility] Lead Right: Ventricle [employer] 07/25/2026 7122Q/5 8 / [id number] / [employer] Quartet 4.7fr 86cm Quadripolar Is-4 Llll Connector 8 Curve Low 1456q/86 - [id number] - [id number] Implanted:Qty: 1 on 12/25/2023 by Vince Blair MD at [facility] Lead N/A: Coronary Sinus [employer] 09/24/2026 1456Q/8 6 / [id number] / [employer] Tendril Sts 6fr 52cm Is-1 Connector Active Fixation Bipolar Soft 2087tc/52 - [id number] - [id number] Implanted:Qty: 1 on 12/25/2023 by Vince Blair MD at [facility] Lead Right: Atrial Appendage [employer] 10/25/2026 2088TC/ 52 / [id number] / [employer] Tendril Sts 6fr 52cm Is-1 Connector Active Fixation Bipolar Soft 2087tc/52 - [id number] - [id number] Implanted:Qty: 1 on 03/04/2024 by Vince Blair MD at [facility] Lead [employer] 01/22/2027 2088TC/ 52 / [id number] / [employer] Lens Iol Tecnis Smplcty 1-Pc Clr [place] 5.5 Diopter [id number] - [id number] - [id number] Implanted:Qty: 1 on 10/09/2024 by Kahlil Tobin MD at [facility] Lens Right: Eye [employer] [id number] 01/31/2027 [id number] / [id number] / [employer] Device 10ml 5fr Closure Mynx Control 2 Mode Balloon Catheter [id number] - [id number] Implanted:Qty: 1 on 07/20/2023 by Herve Do MD at [facility] [employer] 08/24/2024 [id number] / / [id number] [employer] Inc Tyrx Absorbable Antibacterial Envelope-Large 3.3x2.9in [id number] - [id number] Implanted:Qty: 1 on 03/04/2024 by Vince Blair MD at [facility] [employer] 11/30/2024 [id number] / / [id number] Procedures Procedure Name Priority Date/Time Associated Diagnosis Comments EXTRACTION CATARACT - PHACOEMULSIFICATION AND LENS IMPLANT 10/09/2024 8:23 AM RAILWAY SWITCH OPERATOR Nuclear sclerotic cataract of right eye Case Notes 1-13@1208-line up change per jovi-jw TRANSTHORACIC ECHO (TTE) COMPLETE W DOPPLER/CF W CONTRAST Routine 07/29/2024 11:17 AM RAILWAY SWITCH OPERATOR HFrEF (heart failure with reduced ejection fraction) (CMS/HCC) (HCC) LBBB (left bundle branch block) Presence of biventricular automatic cardioverter/defibr illator (AICD) Pericardial effusion DEVICE CHECK - REMOTE Routine 07/24/2024 9:22 AM CDT LBBB (left bundle branch block) Dilated cardiomyopathy (CMS/HCC) (HCC) GI - RESULT 07/17/2024 SCREENING MAMMOGRAM BILATERAL W LYLE Schedule Routine, Read Routine (OP Routine) 06/04/2024 9:09 AM CDT Screening mammogram, encounter for DEXA AXIAL SKELETON BONE DENSITY 1 OR MORE SITES Schedule Routine, Read Routine (OP Routine) 09/13/2019 9:23 AM RAILWAY SWITCH OPERATOR Asymptomatic menopausal state Health care maintenance from Last 3 Months or Most Recently Relevant to Health Maintenance Results * TRANSTHORACIC ECHO (TTE) COMPLETE W DOPPLER/CF W CONTRAST (07/29/2024 11:17 AM RAILWAY SWITCH OPERATOR) Anatomical Region Laterality Modality Ultrasound 07/29/2024 10:4 0 AM RAILWAY SWITCH OPERATOR Narrative 07/29/2024 12:43 PM RAILWAY SWITCH OPERATOR [facility] [address] [facility] [address], [place] [address] [address], [place] [address] P:[phone] P:[phone] Echocardiographic Report ADDENDUM Patient Name: CLEESTE DOLL RU : 1950 Study Date: 07/29/2024 10:40:38 AM Gender: F Tech: Location: [facility] Provider: RHODNA VILLAFANA ?Height(Cm): 152 BSA: 1.44 Weight(Kg): 49.4 Heart Rate: 67 BP: 124 / 80 Quality: Good Order Provider: RHONDA VILLAFANA PROCEDURES: Echocardiographic Report: Transthoracic echocardiogram with complete 2D, M-Mode, color Doppler examination and Definity contrast. With Strain Analysis. INDICATIONS: I50.20 Unspecified systolic (congestive) heart failure, I44.7 Left bundle-branch block, unspecified, Z95.810 Presence of automatic (implantable) cardiac defibrillator, and I31.39 Other pericardial effusion (noninflammatory). Measurements: 2D/M Mode ?Doppler Measurement ?Value ?Normal Range ?Measurement ?Value ?Normal Range LVIDd 2D ? 3.64 ? [ 3.80 - 5.20 ] cm ?JOCELINE Vmax ? 2.21 ? [ 2.00 - 4.00 ] cm2 LVIDs 2D ? 3.16 ? [ 2.20 - 3.50 ] cm ?AV Mean PG ? 2 ?mmHg LVPWd 2D ? 1.21 ? [ 0.60 - 0.90 ] cm ?AV Peak Mathew ?1.04 ? [ 1.00 - 1.70 ] m/s IVSd 2D ?1.16 ? [ 0.60 - 0.90 ] cm ?AV Peak PG ? 4 ?mmHg LA Volume Index ?23 ? [ 16 - 34 ] cc/m2 ? AV VTI ? 19.65 ?cm LVOT Diam ?1.93 ?[ 1.70 - 2.10 ] cm LVOT Peak Mathew ?0.79 ?[ 0.70 - 1.10 ] m/s LVOT VTI ? 13.91 ? cm MV E Peak Mathew ?0.58 ?[ 0.60 - 1.30 ] m/s MV A Peak Mathew ?0.84 ?[ 1.00 - 1.20 ] m/s MV Decel Time ?240 ? [ 104 - 258 ] msec TR Peak Mathew ?2.21 ?[ 1.00 - 2.80 ] m/s TR Peak PG ? 19 ?mmHg Lateral E` ? 0.06 ?[ 0.10 - 0.15 ] m/s E` ? 0.05 ?m/s E/E` ? 11 Measurement ?Value ?Normal Range ?Measurement ?Value ?Normal Range 2D/M Mode ?Doppler - FINDINGS: Interpretation Site: Exam was interpreted at [facility]. Left Ventricle: Normal left ventricular size. Definity contrast agent used to visually enhance endocardial wall motion and contractility. Mild concentric left ventricular hypertrophy. Moderate global left ventricular systolic dysfunction. Paradoxical septal motion consistent with RV pacemaker. Impaired diastolic relaxation Grade I. Ejection fraction is visually estimated at 40 %. Ejection fraction is measured at 44 %. Global Longitudinal Strain is -10 %. GLS is abnormal. These segments of the LV are hypokinetic: anteroseptum segment. These segments of the LV are akinetic: apical segment. Right Ventricle: Normal right ventricular size. Normal right ventricular systolic function. Pacemaker noted. Left Atrium: The left atrium is normal in size. Right Atrium: The right atrium is normal in size. Atrial Septum: Normal atrial septum. Mitral Valve: Mitral valve leaflets appear mildly thickened. Mild mitral valve regurgitation. There is no hemodynamically significant mitral stenosis by Doppler. Aortic Valve: No evidence of hemodynamically significant aortic stenosis by Doppler. Aortic cusps appear mildly sclerotic. Trileaflet aortic valve. Trace aortic valve regurgitation. Tricuspid Valve: Normal appearance of the tricuspid valve. Normal right ventricular systolic pressure. Mild tricuspid regurgitation. Pulmonic Valve: Normal appearance of the pulmonic valve. No pulmonic stenosis. Mild pulmonic regurgitation. Pericardium: Normal pericardium with no significant pericardial effusion. Aorta: Normal aortic root. IVC: Normal size and normal respiratory collapse consistent with normal right atrial pressure (<5 mmHg). CONCLUSIONS: Normal left ventricular size. Definity contrast agent used to visually enhance endocardial wall motion and contractility. Mild concentric left ventricular hypertrophy. Moderate global left ventricular systolic dysfunction. Paradoxical septal motion consistent with RV pacemaker. Impaired diastolic relaxation Grade I. Ejection fraction is visually estimated at 40 %. Ejection fraction is measured at 44 %. Global Longitudinal Strain is -10 %. GLS is abnormal. These segments of the LV are hypokinetic: anteroseptum segment. These segments of the LV are akinetic: apical segment. Mitral valve leaflets appear mildly thickened. Mild mitral valve regurgitation. Mild tricuspid regurgitation. Mild pulmonic regurgitation. Sinus rhythm atrial tracking ventricular paced rhythm. Electronically Signed By: Rhonda Villafana MD 2024-07-29 12:42:54 RAILWAY SWITCH OPERATOR Electronically Amended By: Rhonda Villafana MD 2024-08-06 07:02:31 RAILWAY SWITCH OPERATOR [ADDENDUM] Procedure Note Rhonda Villafana MD - 08/06/2024 [facility] [address] [facility] [address], [place] [address] [address] [facility] [address], [place] [address] P:[phone] P:[phone] Echocardiographic Report ADDENDUM Patient Name: CELESTE DOLL RU : 1950 Study Date: 07/29/2024 10:40:38 AM Gender: F Tech: Location: [place] Ref Provider: RHONDA VILLAFANA Height(Cm): 152 BSA: 1.44 Weight(Kg): 49.4 Heart Rate: 67 BP: 124 / 80 Quality: Good Order Provider: RHONDA VILLAFANA PROCEDURES: Echocardiographic Report: Transthoracic echocardiogram with complete 2D, M-Mode, color Dopplerexamination and Definity contrast. With Strain Analysis. INDICATIONS: I50.20 Unspecified systolic (congestive) heart failure, I44.7 Leftbundle-branch block, unspecified, Z95.810 Presence of automatic (implantable) cardiacdefibrillator, and I31.39 Other pericardial effusion (noninflammatory). Measurements: 2D/M ModeDoppler Measurement Value Normal Range MeasurementValue Normal Range LVIDd 2D 3.64 [ 3.80 - 5.20 ] cm JOCELINE Vmax2.21 [ 2.00 - 4.00 ] cm2 LVIDs 2D 3.16 [ 2.20 - 3.50 ] cm AV Mean PG2 mmHg LVPWd 2D 1.21 [ 0.60 - 0.90 ] cm AV Peak Vel1.04 [ 1.00 - 1.70 ] m/s IVSd 2D 1.16 [ 0.60 - 0.90 ] cm AV Peak PG4 mmHg LA Volume Index 23 [ 16 - 34 ] cc/m2 AV VTI19.65 cm LVOT Diam 1.93 [ 1.70 - 2.10 ] cm LVOT Peak Mathew 0.79 [ 0.70 - 1.10 ] m/s LVOT VTI 13.91 cm MV E Peak Mathew 0.58 [ 0.60 - 1.30 ] m/s MV A Peak Mathew 0.84 [ 1.00 - 1.20 ] m/s MV Decel Time 240 [ 104 - 258 ] msec TR Peak Mathew 2.21 [ 1.00 - 2.80 ] m/s TR Peak PG 19 mmHg Lateral E` 0.06 [ 0.10 - 0.15 ] m/s E` 0.05 m/s E/E` 11 Measurement Value Normal Range MeasurementValue Normal Range 2D/M ModeDoppler - FINDINGS: Interpretation Site: Exam was interpreted at [facility]. Left Ventricle: Normal left ventricular size. Definity contrast agent used to visuallyenhance endocardial wall motion and contractility. Mild concentric leftventricular hypertrophy. Moderate global left ventricular systolic dysfunction. Paradoxical septalmotion consistent with RV pacemaker. Impaired diastolic relaxation Grade I.Ejection fraction is visually estimated at 40 %. Ejection fraction is measured at 44 %. GlobalLongitudinal Strain is -10 %. GLS is abnormal. These segments of the LV arehypokinetic: anteroseptum segment. These segments of the LV are akinetic: apical segment. Right Ventricle: Normal right ventricular size. Normal right ventricular systolic function.Pacemaker noted. Left Atrium: The left atrium is normal in size. Right Atrium: The right atrium is normal in size. Atrial Septum: Normal atrial septum. Mitral Valve: Mitral valve leaflets appear mildly thickened. Mild mitral valveregurgitation. There is no hemodynamically significant mitral stenosis by Doppler. Aortic Valve: No evidence of hemodynamically significant aortic stenosis by Doppler.Aortic cusps appear mildly sclerotic. Trileaflet aortic valve. Trace aortic valveregurgitation. Tricuspid Valve: Normal appearance of the tricuspid valve. Normal right ventricularsystolic pressure. Mild tricuspid regurgitation. Pulmonic Valve: Normal appearance of the pulmonic valve. No pulmonic stenosis. Mildpulmonic regurgitation. Pericardium: Normal pericardium with no significant pericardial effusion. Aorta: Normal aortic root. IVC: Normal size and normal respiratory collapse consistent with normal rightatrial pressure (<5 mmHg). CONCLUSIONS: Normal left ventricular size. Definity contrast agent used to visuallyenhance endocardial wall motion and contractility. Mild concentric leftventricular hypertrophy. Moderate global left ventricular systolic dysfunction. Paradoxical septalmotion consistent with RV pacemaker. Impaired diastolic relaxation Grade I.Ejection fraction is visually estimated at 40 %. Ejection fraction is measured at 44 %. GlobalLongitudinal Strain is -10 %. GLS is abnormal. These segments of the LV arehypokinetic: anteroseptum segment. These segments of the LV are akinetic: apical segment. Mitral valve leaflets appear mildly thickened. Mild mitral valveregurgitation. Mild tricuspid regurgitation. Mild pulmonic regurgitation. Sinus rhythm atrial tracking ventricular paced rhythm. Electronically Signed By: Rhonda Villafana MD 2024-07-29 12:42:54 RAILWAY SWITCH OPERATOR Electronically Amended By: Rhonda Villafana MD 2024-08-06 07:02:31 RAILWAY SWITCH OPERATOR [ADDENDUM] Rhonda Villafana MD CV ECHO PROCEDURES Edited Result - Final * DEVICE CHECK - REMOTE (07/24/2024 9:22 AM CDT) Anatomical Region Laterality Modality Other Narrative 07/24/2024 12:41 PM CDT [employer] [place] [employer] ROUNDER-D ICD. Dx; Dilated CM, LBBB, HF w/reduced EF. DOI 12/25/2023-Johnnie. Jeffrey remote. Routine DDD ICD Remote. Transmission attached. Battery status 90%, 5.3-6.2 years remaining battery life to MALISSA. Stable Charge time and Shock impedance. Stable lead impedances, pacing, and sensing threshold. Presenting rhythm: /BP AP-< 1 %, Bi-V P-99 %. (0) AT/AF episodes noted. (0) Ventricular tachy arrhythmias detected. Medication: ??Toprol-XL 100 mg, Entresto Follow up: office device pacemaker/ICD 9 months Jeffrey Remote 10/29/24 Dwight Barnes, JESSICA Vince Blair MD [facility] [place] OCEDURES Final Result * GI - RESULT (07/17/2024) Anatomical Region Laterality Modality Other Rhonda Villafana MD Final Res ult * Screening Mammogram Bilateral W Lyle (06/04/2024 9:09 AM CDT) Anatomical Region Laterality Modality Breast Bilateral Mammography 06/04/2024 10:3 9 AM CDT Impressions 06/04/2024 10:39 AM CDT No evidence of malignancy in either breast. FINAL ASSESSMENT: BI-RADS Category 1: Negative. RECOMMENDATION: Recommend return for annual screening mammogram in 12 months. ?? Electronically signed by: KD SANDERS MD Narrative 06/04/2024 10:39 AM CDT EXAMINATION: BILATERAL SCREENING MAMMOGRAM COMPARISON: All prior mammograms dating back to 2019. TECHNIQUE: Full-field 2D and digital breast tomosynthesis (DBT) images were obtained. CAD was utilized. BREAST PARENCHYMAL COMPOSITION: ??The breasts are heterogenously dense, which may obscure small masses. FINDINGS: There is no suspicious mass, calcification, or distortion in either breast. us Self Screening Mammogram IMG MAMMO PROCEDURES Fi nal Result * Dexa Axial Skeleton Bone Density 1 or 2 Site (09/13/2019 9:23 AM RAILWAY SWITCH OPERATOR) Anatomical Region Laterality Modality Body N/A Radiographic Sonam ging Narrative 09/23/2019 11:43 PM RAILWAY SWITCH OPERATOR Patient Name: Celeste Doll Date of : 1950 Date of scan: 09/13/2019 Bone mineral density was performed on a [employer] Discovery Densitometer. ?? Machine Cross-calibration and Precision studies have been performed with a least significant change of 0.024 g/cm at the spine, 0.020 g/cm at the total proximal femur, and 0.014g/cm at the forearm. HISTORY: ??This is a 68 y.o. postmenopausal female with a history of low bone mass. Currently on treatment with calcium and vitamin D. Previously treated with Lupron. With a current complaint of back pain. History of tobacco use: Social History Tobacco Use Smoking Status Never Smoker INDICATIONS: Menopause status and history of low bone mass. FINDINGS: BONE MINERAL DENSITY OF THE LUMBAR SPINE Bone Mineral Density (BMD) of the lumbar spine was measured from L1-L4 and the average density was calculated to be 0.935 gm/cm2. This corresponds to a T-score standard deviations from the mean of young adults of -1.0. When compared to the previous study of 01/27/2014 there has been a measured -0.031 gm/cm -3.2% decrease which is considered significant. BONE MINERAL DENSITY OF THE PROXIMAL FEMUR Bone Mineral Density (BMD) of the left hip total was found to be 0.836 gm/cm2. This corresponds to a T-score standard deviations from the mean of young adults of -0.9. Femoral neck is 0.717 gm/cm2 with a T-score of -1.2. When compared to the previous study of 01/27/2014 there has been no significant change noted. SUMMARY: Bone mineral density shows evidence of low bone mass in the hip and moderately increased fracture risk. There has been significant decrease in bone mineral density since previous measurement. ADDITIONAL COMMENTS: If the patient has a history of a fragility fracture, a fracture that occurred with trauma equivalent to a fall from a standing position or less, then the diagnosis is osteoporosis. The risk of osteoporotic fracture increases approximately 2-fold for each 1.0 SD decrease in T-score. However, low bone density is not the only risk factor for fracture. Other factors include patient? s age, previous osteoporotic fracture or prior fracture as an adult, loss of height of greater than 2 inches, corticosteroid use, risk of falling, risk of injury, and family history of osteoporosis. Not everyone with low bone mineral density has osteoporosis. Osteomalacia and other metabolic bone disorders should also be considered where indicated. ??Patients who have osteoporosis should be evaluated for specific diseases and conditions (secondary causes) that may cause or contribute to bone loss. Consider repeating this study in 1-2 years to assess the patient? s response to treatment, if applicable. It is recommended that any follow up exam be performed on the same machine if possible for better accuracy. DEFINITIONS: Osteoporosis: ??BMD at or below -2.5 T-score Osteopenia (low bone mass): ??BMD between -1.0 and-2.5 T-score. The Bone Health Program adopts the following WHO definitions: Osteoporosis: ??BMD below -2.5 S.D. as compared to the BMD of young normal adults. Osteopenia or Low Bone Mass: ??BMD between -1.0 and -2.5 S.D. below the BMD of young normal adults. Normal Bone Density: ??BMD equal to or greater than -1.0 S.D. as compared to the BMD of young normal adults. References: 1) Anastacio, Annals of Internal Medicine 114(11): ??[phone] (1990) 2) Armas, Lancet 341 : 72-75 (1992) 3) Joel, Journal Bone and Mineral Research 7(6): 633-8 (1991) 4) Andi, Journal Bone and Mineral Research 8(10):1227-33 (1992) The history and data sections of the bone mineral density scan were prepared by Coleen Jay)(Saniya)(BD), CBDT who is accredited by the International Society of Clinical Densitometry. The overall patient assessment and scan interpretation were performed by Christal Parks MD who is certified by the International Society of Clinical Densitometry. [id number] us Sonia Lissy Lee MD IMG DXA PROCED URES Final Result from Last 3 Months or Most Recently Relevant to Health Maintenance Insurance [facility] Advance Directives For more information, please contact: [phone] Documents on File Type Date Recorded Patient Terrazzo Roller Expl anation ADVANCE DIRECTIVE 12/15/2023 10:35 AM Reed r of [employer] * Full Code (Latest Code Status on File) Date Activated Date Inactivated Comments 10/09/2024 6:33 AM 10/09/2024 1:54 PM * Full Code Date Activated Date Inactivated Comments 03/04/2024 10:18 AM 03/05/2024 5:03 PM * Full Code Date Activated Date Inactivated Comments 12/25/2023 11:33 AM 12/26/2023 3:16 PM 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
--- OUTSIDE RECORDS SUMMARY | 2024-10-17 06:49 | XMS_ITS | Continuity of Care Document ---
Author Organization [employer] Address [address] [place] [address] Phone Care Team Providers Care Privacy Officer Name Role Phone Clarissa Farley MD Unavailable [...] Diagnoses Date Provider Providers Copied on Encounter [employer], [address], [place], [place], [address] , tel: [phone] [facility] No Information 1 Miguelito Romo. [address], [id number]. [phone] [employer], [address], [place], [place], [address] , tel: [phone] [facility] No Information 1 Umair Coronel. [address] [address], [place], [place], [address], [place]. tel:[phone] [employer], [address], [place], [place], [address] , tel: [phone] [facility] No Information May-3 0- 0 Miguelito Romo. [address] [place], [address], [id number]. [phone] [employer], [address], [place], [place], [address] , tel: [phone] [facility] Medicare preventive (chief complaint)C hronic Conditions (chief complaint) Gastro-esophageal reflux disease without esophagitisPrevent [facility] careLichen sclerosusOsteopeni a of hip, unspecified lateralityAnxiety disorder, unspecifiedPre-kevin betesAllergic rhinitis, unspecifiedBody mass index (BMI) 23.0-23.9, adult Sep-2 8-202 0 Miguelito Romo. [address] [place] [address], [facility] 107, [place], [place], [address]. tel:[phone] Referring Provider: Clarissa Gomez, [address] [place] [address], [place], [address] . tel:[phone] [employer], [address], [place], [place], [address] , tel: [phone] [facility] No Information 0 Miguelito Romo. [address] [place] [address], [place], [place], [address]. tel:[phone] [employer], [address], [place], [place], [address] , [place] tel: [phone] [facility] Encounter for screening for osteoporosis 0-201 9 Miguelito Romo. [address] [place] [address], [place], [place], [address]. tel:[phone] [employer], [address], [place], [place], [address] , [place] tel: [phone] [facility] No Information 9 Miguelito Romo. [address] [place] [address], [place], [place], [address]. [phone] [employer], [address], [place], [place], [address] , tel: [phone] [facility] Medicare preventive (chief complaint)C hronic Conditions (chief complaint) Gastro-esophageal reflux disease without esophagitisPre-kevin betesPreventative health careAnxiety disorder, unspecifiedOsteope shannan of hip, unspecified lateralitySerous macular detachment of right eyeLichen sclerosusBody mass index (BMI) 24.0-24.9, adult Sep- 9 Miguelito Romo. [address] [place] [address], [facility] 107, [place], [place], [address]. tel:[phone] Referring Provider: Clarissa Gomez, [address] [place] [address] [address], [place], [address] . tel:[phone] [employer], [address], [place], [place], [address] , tel: [phone] [facility] No Information 9 Miguelito Romo. [address] [place] [address], [address] [address], [place], [place], [address]. [phone] [employer], [address], [place], [place], [address] , tel: [phone] [facility] No Information 9 Miguelito Romo. [address] [place] [address], [address] [address], [place], [place], [address]. tel:[phone] [employer], [address], [place], [place], [address] , tel: [phone] [facility] Preventative health carePre-diabetesAl lergic rhinitis, unspecifiedLichen sclerosusAnxiety disorder, unspecifiedRetina disorder 8 Miguelito Romo. [address] [place] [address], [facility] 107, [place], [place], [address]. tel:[phone] Referring Provider: Clarissa Gomez, [address] [place] [address] 107, [place], [address] . tel:[phone] [employer], [address], [place], [place], [address] , tel: [phone] [facility] No Information 7 Miguelito Romo. [facility] [place], [address], [place], [place], [address]. tel:[phone] [facility], [address], [place], [place], [address] , [place] tel: [phone] [facility] sclerosusGastro-es ophageal reflux disease without esophagitisAllergi c rhinitis, unspecifiedPre-kevin betes 0-201 7 Miguelito Romo. [facility] [place], [address], [place], [place], [address]. [phone] Referring Provider: Clarissa Gomez, [address] [place] [address] [address], [place], [address] . tel:[phone] [facility], [address], [place], [place], [address] , [place] tel: [phone] [facility] No Information 6-201 6 Miguelito Romo. [address] [place] [address], [facility] [address], [place], [place], [address]. [phone] [facility], [address], [place], [place], [address] , [place] tel: [phone] [facility] sclerosusDermatiti s, unspecifiedGastro- esophageal reflux disease without esophagitisAllergi c rhinitis, unspecifiedPre-kevin betes 0 1201 6 Miguelito Romo. [address] [place] [address], [address], [place], [place], [address]. tel:[phone] Referring Provider: Clarissa Gomez, [address] [place] [address] [address], [place], [address] . tel:[phone] [facility], [address], [place], [place], [address] , [place] tel:[phone] [facility] Lichen sclerosus Apr-1 4-201 6 Miguelito Romo. [address] [place] [address], [facility] 107, [place], [place], [address]. tel:[phone] [facility], [address], [place], [place], [address] , [place] tel: [phone] [facility] No Information Jun-0 7-201 5 Miguelito Romo. [facility]7 [facility] 107, [place], [place], [address]. tel:[phone] [facility], [address], [place], [place], [address] , [place] tel: [phone] [facility] No Information May-2 2-201 5 Miguelito Romo. [address] [place] [address], [place], [place], [address]. tel:[phone] [facility], [address], [place], [place], [address] , [place] tel: [phone] [facility] No Information Mar-0 9-201 5 Miguelito Rmoo. [address] [place] [address], [place], [place], [address]. tel:[phone] [facility], [address], [place], [place], [address] , [place] tel: [phone] [facility] Preventative health careHerpes simplex without mention of complicationANXIET Y STATE NOSDepressionAller gic rhinitis, cause unspecifiedGERDCon tact dermatitis and other eczema, unspecified causeOTHER ABNORMAL GLUCOSE Mike-2 5-201 5 Miguelito Romo. [address] [place] [address], [place], [place], [address]. tel:[phone] Referring Provider: Clarissa Gomez, [address] [place] [address], [place], [address] . tel:[phone] [facility] [address], [place], [place], [address] , [place] tel: [phone] [facility] ANXIETY STATE NOSOTHER ABNORMAL GLUCOSE January-2 7-201 5 Miguelito Romo. [address] [place] [address], [place], [place], [address]. tel:[phone] Referring Provider: Clarissa oGmez, [address] [place] [address], [place], [address] . tel:[phone] [facility], [address], [place], [place], [address] , tel:[phone] [facility] No Information 4 Miguelito Romo. [address] [place] [address], [facility] 107, [place], [place], [address]. tel:[phone] Referring Provider: Clarissa Gomez, [address] [place] [address], [place], [address] . tel:[phone] [facility], [address], [place], [place], [address] , tel:[phone] [facility] Unspecified general medical examinationOTHER ABNORMAL GLUCOSEDepressionG ERDContact dermatitis and other eczema, unspecified cause 4 Miguelito Romo. [address] [place] [address], [facility] 107, [place], [place], [address]. tel:[phone] Referring Provider: Clarissa Gomez, [address] [place] [address], [place], [address] . tel:[phone] [facility] [address], [place], [place], [address] , [place] tel:[phone] [facility] No Information 3 Miguelito Romo. [address] [place] [address], [facility] 107, [place], [place], [address]. [phone] [facility] [address], [place], [place], [address] , [place] tel: [phone] [facility] NEED FOR PROPHYLACTIC VACCINATION AND INOCULATION, INFLUENZA 2-201 3 Miguelito Romo. [address] [place] [address], [facility] 107, [place], [place], [address]. tel:[phone] Referring Provider: Clarissa Gomez, [address] [place] [address], [place], [address] . tel:[phone] [facility] [address], [place], [place], [address] , tel: [phone] [facility] Basal Cell Carcinoma Of Skin, Site UnspecifiedRoutine general medical examination at a [facility] hospitalDepressive disorder, not elsewhere classifiedEsophage al refluxHerpes simplex without mention of complicationOsteoa rthrosis, generalized, involving unspecified sitePre-diabetesRo utine general medical examination at a health care facility 0 5201 3 Miguelito Romo. [address] [place] [address], [place], [place], [address]. tel:[phone] Referring Provider: Clarissa Gomez, [address] [place] [address], [place], [address] . tel:[phone] [facility] [address], [place], [place], [address] , tel: [phone] [facility] Routine general medical examination at a [facility] centerDepressive disorder, not elsewhere classifiedEsophage al refluxHerpes simplex without mention of complicationContac t dermatitis and other eczema, unspecified causeRoutine general medical examination at a health care facility 6 2 Miguelito Romo. [address] [place] [address], [place], [place], [address]. tel:[phone] Referring Provider: Clarissa Gomez, [address] [place] [address], [place], [address] . tel:[phone] [facility] [address], [place], [place], [address] , [place] tel: [phone] [facility] Unspecified general medical examination 0 2 Miguelito Romo. [address] [place] [address], [place], [place], [address]. tel:[phone] [facility], [address], [place], [place], [address] , tel: [phone] [facility] Mass, chest 2 Rivas Thomson. [address] [place] [address], [address] [address], [place], [address]. tel:[phone] [facility], [address], [place], [place], [address] , [place] tel:[phone] [facility] Abdominal pain 2 Rivas Thomson. [address] [place] [address], [place], [address]. tel:[phone] Referring Provider: Clarissa Gomez, [address] [place] [address], [place], [address] . tel:[phone] [facility], [address], [place], [place], [address] , [place] tel:[phone] [facility] NEED FOR PROPHYLACTIC VACCINATION AND INOCULATION, OTHER VIRAL DISEASES 2 Miguelito Romo. [address] [place] [address], [place], [place], [address]. tel:[phone] Referring Provider: Clarissa Gomez, [address] [place] [address], [place], [address] . tel:[phone] [facility], [address], [place], [place], [address] , [place] tel:[phone] [facility] Routine general medical examination at a [facility] care facilityEsophageal refluxHerpes simplex without mention of complicationAllerg ic rhinitis, cause unspecifiedOsteoar throsis, generalized, involving unspecified siteContact dermatitis and other eczema, unspecified causeScreening for diabetes mellitusRoutine general medical examination at a health care facility 1 Miguelito Romo. [address] [place] [address], [place], [place], [address]. tel:[phone] Referring Provider: Clarissa Gomez, [address] [place] [address], [place], [address] . tel:[phone] [facility], [address], [place], [address] , [place] tel:[phone] [facility] ROUTINE MEDICAL EXAMOTHER ATOPIC DERMATITISALLERGIC RHINITIS NOS 3-201 0 Miguelito Romo. [address] [place], [facility] 107, [place], [place], [address]. tel:[phone] [facility], [address], [place], [place], [address] , [place] tel:[phone] [facility] ESOPHAGEAL REFLUXSCREEN LIPOID DISORDERSHERPES SIMPLEX NOS 8-200 9 Miguelito Romo. [address] [place], [facility] 107, [place], [place], [address]. tel:[phone] [facility], [address], [place], [place], [address] , [place] tel: [phone] [facility] SCREEN-DIABETES MELLITUS 6200 8 Miguelito Romo. [address] [place] [address], [address] [place] [address], [place], [place], [address]. tel:[phone] [facility], [address], [place], [place], [address] , [place] tel:[phone] [facility] VACCINATION FOR DTP-DTAP 7 Miguelito Romo. [address] [place] [address], [address] [place] [address], [place], [place], [address]. tel:[phone] [facility], [address], [place], [place], [address] , [place] tel:[phone] [facility] OTHER SBORHEIC KERATOSISDEPRESSIV E DISORDER NEC 200 6 Miguelito Romo. [address] [place], [facility] 107, [place], [place], [address]. tel:[phone] [facility], [address], [place], [place], [address] , [place] tel:[phone] [facility] JOINT PAIN-UNSPEC 6200 5 Miguelito Romo. [facility] [place], [address] [address], [place], [place], [address]. tel:[phone] [facility], [address], [place], [place], [address] , tel: [phone] [facility] No Information 5 Maints Clarissa. [address], [address] [address], [place], [place], [address]. tel: [phone] [facility], [address], [place], [address] , [place] tel:[phone] [facility] SPASM OF MUSCLE 5 Conversion Doctor. [facility]4 [facility], [place], [address], [place]. [facility], [address], [place], [place], [address] , [place] tel: [phone] [facility] CHR ALLRG CONJUNCTIV NECANXIETY STATE NOS 4 Maints Clarissa. [facility] [place], [address] [address], [place], [place], [address]. tel:[phone] [facility], [address], [place], [address] , [place] tel:[phone] [facility] CERVICALGIAEDEMA 4 Conversion Doctor. [facility]4 [facility], [place], [address], [place]. [facility], [address], [place], [place], [address] , [place] tel: [phone] [facility] SCREEN MAL NEOP-RECTUMHEADACH E 3 Miguelito Clarissa. [address] [place] [address], [address] [place] [address], [place], [place], [address]. tel:[phone] [facility], [address], [place], [address] , [place] tel: [phone] [facility] OSTEOPOROSIS NOSGENERAL OSTEOARTHROSIS 2 Brunts Clarissa. [address] [place] [address], [address] [place] [address], [place], [place], [address]. tel: [phone] [facility], [address], [place], [place], [address] , [place] tel: [phone] [facility] SYMPT STATE W ARTIF ELDON 2 Miguelito Romo. [address], [address], [place], [place], [address]. tel:[phone] [facility], [address], [place], [address] , tel: [phone] [facility] ENDOMETRIOSIS NOS 1 Miguelito Romo. [address], [address], [place], [place], [address]. tel:[phone] Family History Family Member Type Diagnosis Age [...] doses, administered 21 days apart administered Note: [facility] in [place], [place]. ; Source: Other Registry Pfizer-BioNTech COVID19 Vaccine, 0.3mL per dose, 2 doses, administered 21 days apart administered Note: [facility] in [place], [place]. ; Source: Other Registry Fluzone Quad, [...] Zoster administered Source: New Imm unization Record 33002 - Tetanus_Diptheria_Pertussis_Tda p administered Source: Source Unspe cified hep A (adult) administered Source: Source Unspecified 33994 - Hepatitis_A administered Source: Source Unspecified hep B (adult) administered Source: Source Unspecified hep B (adult) administered Source: Source Unspecified 87907 - Hepatitis_B administered Source: Source Unspecified 56163 - TD administered Source: Source Unspecified Payers Payer name Insurance type Covered constitution party ID Authoriza tion(s) [employer] MB [id number] [employer] MB [id number] [employer] MB [id number] [employer] ACCESS I II III CI [id number] Social History Type Description Quantity Date Captured Comments Alcohol Use Details Unknown Caffeine Use Details Unknown Tobacco Use Status No Information Smoking Status No Information Sex Female Sexual Orientation Straight or heterosexual Gender Identity Female Chief Complaint And Reason For Visit No Information Reason For Referral Reason For Referral No Information Plan Of Treatment Date Type Action Status Goal Td vaccine. Due on due Goal Influenza vaccine. Due on due Goal Zoster vaccine (2nd) due Goal Diabetes Screening. Due on S due Goal Depression screening. Due on due Goal Mammogram. Due on due Goal Cognitive assessment. Due on due Goal Lipid Panel. Due on due Goal DEXA Scan due Goal Zoster vaccine (1st) due Goal PAP. Due on due Goal Colonoscopy. Due on due Goal DEXA Scan due Goal Influenza vaccine. Due on due Goal Depression screening. Due on due Goal PAP. Due on due Goal Cognitive assessment. Due on due Goal Zoster vaccine (1st) due Goal Lipid Panel. Due on due Goal Diabetes Screening. Due on S due Goal Zoster vaccine (2nd) due Goal Td vaccine. Due on due Goal FOBT. Due on due Goal Colonoscopy. Due on due Goal Sigmoidoscopy. Due on due Goal Mammogram. Due on due Goal Influenza vaccine. Due on due Goal FOBT. Due on due Goal Lipid Panel. Due on due Goal Cognitive assessment. Due on due Goal Sigmoidoscopy. Due on due Goal Zoster vaccine (2nd) due Goal PAP. Due on due Goal Depression screening. Due on due Goal Colonoscopy. Due on due Goal Mammogram. Due on 1 due Goal DEXA Scan due Goal Zoster vaccine (1st) due Goal Diabetes Screening. Due on S due Goal Td vaccine. Due on due Goal Dietary management education , guidance, and counseling completed Goal Influenza vaccine. Due on due Goal Mammogram. Due on 0 due Goal Zoster vaccine (2nd) due Goal PAP. Due on due Goal Cognitive assessment. Due on due Goal Td vaccine. Due on due Goal Colonoscopy. Due on due Goal Depression screening. Due on due Goal FOBT. Due on due Goal Diabetes Screening. Due on S due Goal Sigmoidoscopy. Due on due Goal Zoster vaccine (1st) due Goal Lipid Panel. Due on due Goal Mammogram. Due on 0 due Goal Influenza vaccine. Due on due Goal FOBT. Due on due Goal Zoster vaccine (1st) due Goal PAP. Due on due Goal Lipid Panel. Due on 108 due Goal Colonoscopy. Due on 026 due Goal Zoster vaccine (2nd) due Goal Td vaccine. Due on 27 due Goal Sigmoidoscopy. Due on due Goal Depression screening. Due on due Goal Diabetes Screening. Due on due Goal Cognitive assessment. Due on due Goal Dietary management education , guidance, and counseling completed Referral Referred To: [id number] Ordered: DEXA of spine and hip ordered Referral Referred To: Vanessa Hodges MD [address] [facility]
[address] [place], [phone] Ordered: Referrals: Clinical Genetics Laboratory Chief. Vanessa Hodges MD. Evaluation/diagnostic/treatment - Level 3 Appointment date/timeframe: 09/16/2019 ordered Referral Referred To: Cl Medina MD [address] [facility]
[address] [place], [phone] Ordered: Referrals: Ophthalmology. Cl Medina MD. Evaluation/diagnostic/treatment - Level 3 ordered History Of Present Illness Encounter Date [...] not hear from us, call us at [phone]. Related to Pre-diabetes Please continue the SAME MEDICATIONS as listed on your patient plan. Today, you need to get a lab test.We will send you a letter or call you with your test results. If you do not hear from us, call us at [phone].BMP, Hemoglobin [id number] with a physical in one year. Related to Allergic rhinitis, unspecified Please continue to s kory the non clinical advisor. Related to Lichen sclerosus I'm glad you [...] to Gastro-esophageal reflux disease without esophagitis see product safety head routinely Ph ysical one year.Today, you need to get a lab test.We will send you a letter or call you with your test results. If you do not hear from us, call us at [phone].BMP, Hemoglobin A1c, vitamin D levelBefore your next visit, you need to get a lab test. Please come in one week before your visit.Stop at the front end driver.We will send you a letter or call you with your test results. If you do not hear from us, call us at [phone].LAB NEEDED:BMP, Hemoglobin A1c, vitamin D level Related to Lichen sclerosus Dietary management e ducation, guidance, and counseling Related to Body mass index (BMI) 24.0-24.9, adult Assessments Type Assessment Date No Information Patient Care Teams Name Effective Dates (start - stop) Status Members No Information
--- OUTSIDE RECORDS SUMMARY | 2024-10-17 06:49 | XMS_ITS | Referral Summary ---
Author Organization [facility] Address [address] [place] [address] Care Team Providers Care Lens Edge Grinder Machine Name Role Phone Jonathan Camejo DO Primary Care Provider [phone]- [phone] Encounters Date Type Department Care Team Description 10/09/2024 8:30 AM SOFTWARE APPLICATION TESTER - 10/09/2024 9:30 AM SOFTWARE APPLICATION TESTER Surgery [facility] [address] [place] [address] Kahlil Tobin MD EXTRACTION CATARACT - PHACOEMULSIFICATION AND LENS IMPLANT 10/09/2024 8:23 AM SOFTWARE APPLICATION TESTER Anesthesia Event [facility] ([facility]) [address] [place] [address] 18693 Farzana Chawla MD Mallette, Allison Anne, NP 10/09/2024 6:16 AM SOFTWARE APPLICATION TESTER - 10/09/2024 9:53 AM SOFTWARE APPLICATION TESTER Hospital Encounter [facility] ([facility]) [address] [place] [address] Kahlil Tobin MD Discharge Disposition: Discharge to home or self care 09/13/2024 11:00 AM SOFTWARE APPLICATION TESTER Office Visit [facility] Cardiology [address] [place] [address] Alona Baez NP Dilated cardiomyopathy (CMS/HCC) (HCC) (Primary Dx); LBBB (left bundle branch block); Presence of biventricular automatic cardioverter/defibrillato r (AICD) 07/29/2024 10:15 AM SOFTWARE APPLICATION TESTER Ancillary Procedure [facility] Cardiology [address] [place] [address] HFrEF (heart failure with reduced ejection fraction) (CMS/HCC) (HCC); LBBB (left bundle branch block); Presence of biventricular automatic cardioverter/defibrillato r (AICD); Pericardial effusion 07/23/2024 9:00 AM CDT Ancillary Procedure [facility] Cardiology [address] [address] HFrEF (heart failure with reduced ejection fraction) (CMS/HCC) (HCC) (Primary Dx); LBBB (left bundle branch block); Dilated cardiomyopathy (CMS/HCC) (HCC); Presence of automatic cardioverter/defibrillato r (AICD) 07/17/2024 Orders Only [facility] Health Information Management [address] [place] [address] Rhonda Moura MD from Last 3 Months Allergies Active Allergy Reactions Criticality Noted Date [...] mouth as needed (swelling) 04/19/20 24 Active lysmgcwl-qlw-vbso- FA-vit K-lut 8 mg iron-400 mcg-50 mcg [...] Date Nuclear sclerotic cataract of left eye 4 Pericardial effusion 06/19/2024 Visit for wound check 03/11/2024 Presence of automatic cardioverter/defibrillator (AICD) 03/04/2024 Presence of biventricular au tomatic cardioverter/defibrillator (AICD) 11/30/2023 Overview (03/05/2024): Juarez Martin ARTIFICIAL INSEMINATOR-D ICD. Dx; Dilated CM, LBBB, HF w/reduced EF. DOI 12/25/2023-[employer]by. Jeffrey remote. 03/04/2024-Atrial lead explanted, new atrial lead model 2088TC/52 reimplanted- [employer]vinkolby. Dilated cardiomyopathy ([facility]/HCC) 09/27/2023 HFrEF (heart failure with re duced ejection fraction) ([facility]) 09/27/2023 Chronic fatigue 07/25/2023 Primary hypertension 07/14/2023 [...] sclerotic cataract of right eye 08/13/2024 10/09/2024 Social History Tobacco Use Types Packs/Day Years [...] on file Legal Sex Female 2:59 AM SOFTWARE APPLICATION TESTER Gender Identity Female 02/14/2023 2:01 PM CDT Sexual Orientation Straight 02/14/2023 2: 01 PM CDT Last Filed Vital Signs Vital Sign Reading Time Taken Comments Blood Pressure 120/67 10/09/2024 9:20 AM SOFTWARE APPLICATION TESTER Pulse 75 10/09/2024 9:20 AM SOFTWARE APPLICATION TESTER Temperature 36 ??C (96.8 ??F) 10/09/2024 9:08 AM SOFTWARE APPLICATION TESTER Respiratory Rate 13 10/09/2024 9:20 AM SOFTWARE APPLICATION TESTER Oxygen Saturation 98% 10/09/2024 9:20 AM SOFTWARE APPLICATION TESTER Inhaled Oxygen Concentration - - Weight 49.9 kg (110 lb) 10/09/2024 7:30 AM SOFTWARE APPLICATION TESTER Height 152.4 cm (5') 10/09/2024 7:30 AM SOFTWARE APPLICATION TESTER Body Mass Index 21.48 10/09/2024 7:30 AM SOFTWARE APPLICATION TESTER Plan of Treatment Upcoming Encounters Date Type Department Care Team (Latest Contact Info) Description 10/23/2024 8:30 AM SOFTWARE APPLICATION TESTER Hospital Encounter [facility]) [address] [place] [address] Kahlil Tobin MD [address] [facility] [address] [place] [address] 10/23/2024 8:30 AM SOFTWARE APPLICATION TESTER Anesthesia Event [facility] ([facility]) [address] [place] [address] Cecy Sanchez NP [address] [facility] [phone] [place] [address] 10/23/2024 8:30 AM SOFTWARE APPLICATION TESTER - 10/23/2024 9:30 AM SOFTWARE APPLICATION TESTER Surgery [facility] ([facility]) [address] [place] [address] Kahlil Tobin MD [address] [facility] [address] [place] [address] EXTRACTION CATARACT - PHACOEMULSIFICATION AND LENS IMPLANT Scheduled Procedures Name Priority Associated Diagnoses Date/Ti me EXTRACTION CATARACT - PHACOEMULSIFICATION AND LENS IMPLANT Nuclear sclerotic cataract of left eye 10/23/2024 8:30 AM SOFTWARE APPLICATION TESTER Medical Devices Implanted Type Area Corn Sheller Device Identifier Shelf Expiration Date Model / Serial / Lot Pizarro Vascular Defib Cardiac [id number] Stanley Hf Df4 Is-4 Is-1 Cnctr [id number] - [id number] - [id number] Implanted:Qty: 1 on 12/25/2023 by Vince Blair MD at [facility] ICD Left: Infraclavicular Anterior Chest Wall [employer] 10/25/2025 [id number] / [id number] / [employer] Durata 6.8fr 58cm 1 Coil True Bipolar Active Fixation Extendable 7122q/58 - [id number] - [id number] Implanted:Qty: 1 on 12/25/2023 by Vince Blair MD at [facility] Lead Right: Ventricle [employer] 07/25/2026 7122Q/5 8 / [id number] / [employer] Quartet 4.7fr 86cm Quadripolar Is-4 Llll Connector 8 Curve Low 1456q/86 - [id number] - [id number] Implanted:Qty: 1 on 12/25/2023 by Vince Blair MD at [facility] Lead N/A: Coronary Sinus [employer] 09/24/2026 1456Q/8 6 / [id number] / [employer] Tendril Sts 6fr 52cm Is-1 Connector Active Fixation Bipolar Soft 2088tc/52 - [id number] - [id number] Implanted:Qty: 1 on 12/25/2023 by Vince Blair MD at [facility] Lead Right: Atrial Appendage [employer] 10/25/20262087TC/ 52 / [id number] / [employer] Tendril Sts 6fr 52cm Is-1 Connector Active Fixation Bipolar Soft - [id number] - [id number] Implanted:Qty: 1 on 03/04/2024 by Vince Blair MD at [facility] Lead [employer] 01/22/2027/ 52 / [id number] / [employer] Lens Iol Tecnis Smplcty 1-Pc Clr Clare 5.5 Diopter [id number] - [id number] - [id number] Implanted:Qty: 1 on 10/09/2024 by Kahlil Tobin MD at [facility] Lens Right: Eye [employer] [id number] 01/31/2027 [id number] / [id number] / Access [employer] Device 10ml 5fr Closure Mynx Control 2 Mode Balloon Catheter [id number] - [id number] Implanted:Qty: 1 on 07/20/2023 by Herve Do MD at [facility] Access [employer] 08/24/2024 [id number] / / [id number] Med[employer]onic Inc Tyrx Absorbable Antibacterial Envelope-Large 3.3x2.9in [id number] - [id number] Implanted:Qty: 1 on 03/04/2024 by Vince Blair MD at [facility] [employer] 11/30/2024 [id number] / / [id number] Procedures Procedure Name Priority Date/Time Associated Diagnosis Comments EXTRACTION CATARACT - PHACOEMULSIFICATION AND LENS IMPLANT 10/09/2024 8:23 AM SOFTWARE APPLICATION TESTER Nuclear sclerotic cataract of right eye Case Notes 1-13@1208-line up change per jovi-jw TRANSTHORACIC ECHO (TTE) COMPLETE W DOPPLER/CF W CONTRAST Routine 07/29/2024 11:17 AM SOFTWARE APPLICATION TESTER HFrEF (heart failure with reduced ejection fraction) [...] Read Routine (OP Routine) 09/13/2019 9:23 AM SOFTWARE APPLICATION TESTER Asymptomatic menopausal state Health care maintenance from Last 3 Months or Most Recently Relevant to Health Maintenance Results * TRANSTHORACIC ECHO (TTE) COMPLETE W DOPPLER/CF W CONTRAST (07/29/2024 11:17 AM SOFTWARE APPLICATION TESTER) Anatomical Region Laterality Modality Ultrasound 07/29/2024 10:4 0 AM SOFTWARE APPLICATION TESTER Narrative 07/29/2024 12:43 PM SOFTWARE APPLICATION TESTER [facility] Cardiology [address] [facility] [address] [address] [address] [facility] [address], [place] [address] P:[phone] P:[phone] Echocardiographic Report ADDENDUM Patient Name: CELESTE DOLL RU : 1950 Study Date: 07/29/2024 10:40:38 AM Gender: F Tech: Location: [facility] Provider: RHONDA MOURA ?Height(Cm): 152 BSA: 1.44 Weight(Kg): 49.4 Heart Rate: 67 BP: 124 / 80 Quality: Good Order Provider: RHONDA MOURA PROCEDURES: Echocardiographic Report: Transthoracic echocardiogram with complete [...] FINDINGS: Interpretation Site: Exam was interpreted at [facility]. Left Ventricle: Normal left ventricular size. [...] ventricular paced rhythm. Electronically Signed By: Rhonda Moura MD 2024-07-29 12:42:54 SOFTWARE APPLICATION TESTER Electronically Amended By: Rhonda Moura MD 2024-08-06 07:02:31 SOFTWARE APPLICATION TESTER [ADDENDUM] Procedure Note Rhonda Moura MD - 08/06/2024 [facility] Cardiology [address] [facility] [address], [place] [address] [address] [facility] [address], [place] [address] P:[phone] P:[phone] Echocardiographic Report ADDENDUM Patient Name: CELESTE DOLL RU : 1950 Study Date: 07/29/2024 10:40:38 AM Gender: F Tech: Location: [facility] Provider: RHONDA MOURA Height(Cm): 152 BSA: 1.44 Weight(Kg): 49.4 Heart Rate: 67 BP: 124 / 80 Quality: Good Order Provider: RHONDA MOURA PROCEDURES: Echocardiographic Report: Transthoracic echocardiogram with complete [...] FINDINGS: Interpretation Site: Exam was interpreted at [facility]. Left Ventricle: Normal left ventricular size. [...] ventricular paced rhythm. Electronically Signed By: Rhonda Moura MD 2024-07-29 12:42:54 SOFTWARE APPLICATION TESTER Electronically Amended By: Rhonda Moura MD 2024-08-06 07:02:31 SOFTWARE APPLICATION TESTER [ADDENDUM] Rhonda Moura MD CV ECHO PROCEDURES Edited Result - Final * DEVICE CHECK - REMOTE (07/24/2024 9:22 AM CDT) Anatomical Region Laterality Modality Other Narrative 07/24/2024 12:41 PM CDT [employer] Stanley ARTIFICIAL INSEMINATOR-D ICD. Dx; Dilated CM, LBBB, HF w/reduced EF. DOI 12/25/2023-Johnnie. Ozark remote. Routine DDD ICD Remote. Transmission attached. Battery status 90%, 5.3-6.2 years remaining battery life to MALISSA. Stable Charge time and Shock impedance. Stable lead impedances, pacing, and sensing threshold. Presenting rhythm: /BP AP-< 1 %, Bi-V P-99 %. (0) AT/AF episodes noted. (0) Ventricular tachy arrhythmias detected. Medication: ??Toprol-XL 100 mg, Entresto Follow up: office device pacemaker/ICD 9 months [employer]ark Remote 10/29/24 Dwight Barnes, JESSICA Vince Blair MD CV CARDIAC SERVICES IN OCEDURES Final Result * GI - RESULT (07/17/2024) Anatomical Region Laterality Modality Other Rhonda Moura MD Final Res ult * Screening Mammogram [...] mass, calcification, or distortion in either breast. Self Screening Mammogram IMG MAMMO PROCEDURES Fi nal Result * Dexa Axial Skeleton Bone Density 1 or 2 Site (09/13/2019 9:23 AM SOFTWARE APPLICATION TESTER) Anatomical Region Laterality Modality Body N/A Radiographic Sonam ging Narrative 09/23/2019 11:43 PM SOFTWARE APPLICATION TESTER Patient Name: Celeste Doll Date of : 1950 Date of scan: 09/13/2019 Bone mineral density was performed on a [employer] Discovery Densitometer. ?? Machine Cross-calibration and Precision [...] BMD of young normal adults. References: 1) Anastacio Annals of Internal Medicine 114(11): ??429-923 (1990) 2) Pawel, Lancet 341 : 72-75 (1992) 3) Joel, Journal Bone and Mineral Research 7(6): 633-8 (1991) 4) Andi, Journal Bone and Mineral Research 8(10):1227-33 (1992) The history and data sections of the bone mineral density scan were prepared by Coleen Jay)(Saniya)(), CBDT who is accredited by the International Society of Clinical Densitometry. The overall patient assessment and scan interpretation were performed by Christal Parks MD who is certified by the International Society of Clinical Densitometry. [id number] us Sonia Lissy Lee MD IMG DXA PROCED URES Final Result from Last 3 Months or Most Recently Relevant to Health Maintenance Insurance [facility] Member Subscriber Plan / Payer (Ef fective 2018-Present) Name:Celeste Doll Relation to Subscriber:Self Name:Celeste Doll Payer ID:[id number] (NAIC) Type:MEDICARE RISK OTHER Address: [address] [place] [facility] Member Subscriber Plan / Payer ( fective 2014-Present) Name:Celeste Doll Relation to Subscriber:Self Name:Celeste Doll Payer ID:[id number] (NAIC) Type:MEDICARE RISK OTHER Address: [address] [place] [id number] Advance Directives For more information, please contact: [phone] Documents on File Type Date Recorded Patient Telecom Manager Expl anation ADVANCE DIRECTIVE 12/15/2023 10:35 AM Reed r of Curb Machine Operator-Medical * Full Code (Latest Code Status on File) Date Activated Date Inactivated Comments 10/09/2024 6:33 AM 10/09/2024 1:54 PM * Full Code Date Activated Date Inactivated Comments 03/04/2024 10:18 AM 03/05/2024 5:03 PM * Full Code Date Activated Date Inactivated Comments 12/25/2023 11:33 AM 12/26/2023 3:16 PM Care Teams Lens Edge Grinder Machine Relationship Specialty Start Date End Date Jonathan Camejo DO PCP - General Internal Medicine 01/19/24
--- OUTSIDE RECORDS SUMMARY | 2024-10-17 06:49 | XMS_ITS ---
Author Organization [facility] Address [address] [facility] [address] [place] [address] Care Team Providers Care Cartographic Aide Name Role Phone zprabhjotMigration, zzzzProvider Unavailable Unav ailable REASON FOR VISIT [facility] Encounters Encounter Location Date Provider Diagnosis [facility] [address] [facility] [facility] [address] [place] [address] 07/15/2023 zzzzProvider zzzzMigration Plan Of Treatment No Information Progress Notes * Celeste CAMPUZANO RDOB:1950 (73 yo F)Acc No.[id number]:07/15/2023 Patient:?Celeste CAMPUZANO :1950???Age:72 Y???Sex:Female [address] [facility] [address] Subjective: * Chief Complaints: * ???[facility] * Medical History:? * Surgical History:? * Hospitalization/Major Diagno stic Procedure:? * Medications:? Objective: * Vitals:? * Physical Examination:? Assessment: Plan: * Treatment: * Procedure Codes:? * * Date:?
== END 2024-10-11 12:45 | disposition home or self-care (01) ==
PROVIDERS: PCP Internal Medicine; Visit Provider Physician Assistant
DX: R91.8 Other nonspecific abnormal finding of lung field (principal); J90 Pleural effusion, not elsewhere classified
CPT/HCPCS: 71250

== ENCOUNTER 2025-02-18 12:22 | Outpatient (CLI) | payer OTHER, SELFPAY ==
--- NOTE | ~2025-02-18 | DEXA_ITS ---
Bone Density Report Name: SHAHBAZ CAMPUZANO Age: 74 Sex: Female Ethnicity: White Date of : 1950 Indication: osteopenia; height loss; cancer; asthma or emphysema; Referring Provider: Gerda Ruano Study: Bone densitometry was performed. Exam Date: February 18, 2025 Accession number: [id number] Bone Density: Region BMD T-score Z-score Classification AP Spine(L1-L4) 0.822 -2.0 0.4 Osteopenia Femoral Neck (Left) 0.640 -1.9 0.2 Osteopenia Total Hip (Left) 0.786 -1.3 0.5 Osteopenia Femoral Neck (Right) 0.667 -1.6 0.5 Osteopenia Total Hip (Right) 0.778 -1.3 0.4 Osteopenia Total Hip Mean 0.782 -1.3 0.5 Osteopenia World Health Organization criteria for BMD impression classify patients as: Normal (T-score at or above -1.0), Osteopenia (T-score between -1.0 and -2.5), or Osteoporosis (T-score at or below -2.5). 10-year Fracture Risk(1): Major Osteoporotic Fracture 12% Hip Fracture 2.9% Reported Risk Factors: [place] (), Neck BMD=0.640, BMI=22.5 (1) FRAX(R) Version 3.08. Fracture probability calculated for an untreated patient. Fracture probability may be lower if the patient has received treatment. Previous Exams: -- Region Exam Age BMD T-score BMD Change BMD Change Date g/cm2 vs Baseline vs Previous -- AP Spine (L1-L4) 02/18/2025 74 0.822 -2.0 -9.9%* -9.9%* 07/25/2022 71 0.912 -1.2 Total Hip(Left) 02/18/2025 74 0.786 -1.3 -1.0% -1.0% 07/25/2022 71 0.794 -1.2 Total Hip(Right) 02/18/2025 74 0.778 -1.3 -2.5% -2.5% 07/25/2022 71 0.798 -1.2 -- *Denotes significance at 95% confidence level, LSC for AP Spine = 0.022 g/cm2, LSC for Total Hip = 0.027 g/cm2 Clinical Information Provided by Patient: Has used the following medications: Vitamin D, Calcium Has the following medical conditions: Asthma or Emphysema, Cancer, BASAL CELL SKIN CA Patient maximum height was 61 Menopause Age: 51 Drinks caffeinated beverages Onset of menses at age 12 Number of children 0 Impression: The patient has low bone mass, based on the Total Spine T-score. The patient has an estimated ten-year risk of hip fracture of 2.9% and an estimated ten-year risk of major fracture of 12%, based on the WHO FRAX algorithm. The BMD for the AP Spine (L1-L4) decreased, changing by -9.9% since the last DXA exam. Discussion: BONE DENSITY IS LOW AT ONE OR MORE SKELETAL SITES. This patient's lowest T-score is low at one or more skeletal sites. It meets the World Health Organization's (WHO) criteria for ?low bone mass? (T-score between -1.0 and -2.5). The patient's 10-year risk of fracture as calculated by FRAX is less than the threshold where pharmacological therapy is recommended by the National Osteoporosis Foundation (NOF). However, all treatment decisions require clinical judgment and consideration of individual patient factors, including patient preferences, comorbidities, previous drug use, risk factors not captured in the FRAX model (e.g., frailty, falls, vitamin D deficiency, increased bone turnover, interval significant decline in bone density) and possible under or overestimation of fracture risk by FRAX. The patient should follow a healthful lifestyle (good nutrition with adequate calcium and vitamin D, and appropriate weight-bearing exercise). Follow-Up: Consider repeating this study in 2 years to reassess this patient's status, or sooner if there is some new clinical indication. Reported by: MIRANDA on 02/18/2025 12:47:00 PM. Reviewed, dictated and finalized at location A.
== END 2025-02-18 12:23 | disposition home or self-care (01) ==
PROVIDERS: PCP Internal Medicine Cardiovascular Disease; Visit Provider Nurse Practitioner
DX: M85.89 Other specified disorders of bone density and structure, multiple sites (principal); Z78.0 Asymptomatic menopausal state
CPT/HCPCS: 77080

== ENCOUNTER 2025-04-08 11:16 | Outpatient (CLI) | payer OTHER, SELFPAY ==
--- NOTE | ~2025-04-08 | CT_ITS ---
CT Scan of the Chest without Contrast: Clinical Indication: Pulmonary nodule Technique: Contiguous sections were acquired throughout the chest without intravenous contrast. Dose reduction technique was used on this scan by utilizing automated exposure control and iterative recon struction technique. The dose-length product (DLP) was 131.97 mGy-cm. COMPARISON: 10/11/2024 Findings: There is no evidence of any significant mediastinal, hilar or axillary lymphadenopathy. The mediastin al soft tissues appear normal. There is no evidence of pleural or pericardial effusion. Stable very subtle 5 mm groundglass nodule in the right upper lobe. There is a new 2 mm nodule in the right middle lobe (axial image 51). Images through the upper abdomen reveal no abnormalities. Impression: Tiny pulmonary nodules, as above, most likely benign. Consider one-year follow-up exam as indicated. Reviewed, dictated and finalized at [facility]. Impression: Tiny pulmonary nodules, as above, most likely benign. Consider one-year follow- up exam as indicated.
--- OUTSIDE RECORDS SUMMARY | 2025-04-08 11:33 | XMS_ITS | Clinical Summary ---
Author Organization [facility] Address [address] [place] [address] Care Team Providers Care Pegger Name Role Phone Unavailable Primary Care Provider [...] Td Vaccines ( 1 - Tdap) 1968 Pneumococcal Vaccine: 50+ Ye ars (1 of 1 - PCV) 12/08/1999 Zoster Vaccines (1 of 2) 12/08/1999 Dexa Scan (General) 2014 COVID-19 Vaccine ( - 2023-2 5 season) 2024 RSV Immunization or 60+ Years (1 - 1-dose 75+ series) 2024 Meningococcal B Vaccine Aged Out No l onger eligible based on patient's age to complete this topic Meningococcal Vaccine Aged Out No [place] narinder eligible based on patient's age to complete this topic RSV Immunizations Under 20 Months Aged Out No longer eligible based on patient's age to complete this topic
--- OUTSIDE RECORDS SUMMARY | 2025-04-08 11:33 | XMS_ITS | Patient Health Record ---
Author Organization [facility] [employer] Address [address] [facility] [address] [place] [address] Care Team Providers Care Cant Gang Sawyer Name Role Phone Jonathan Camejo DO Primary Care Provider Stefano Taylor Unavailable [phone] Allergies Allergen (clinical drug ingredient) Drug/Non Drug Allergy documented on EMR Reaction Allergy Type Onset Date Status Substance with sulfonamide structure and antibacterial mechanism of action (substance) SULFA (SULFONAMIDE ANTIBIOTICS) (uncoded) Unknown Allergy 01/22/2024 Active ketoprofen Ketoprofen Unknown Drug Allergy 01/22/2024 Acti ve Substance with penicillin structure and antibacterial mechanism of action (substance) Penicillins Unknown Drug Allergy 01/22/2024 Active Results Component Value Reference Range Notes UDT Reviewed date:11/14/2024 01:03:41 PM Interpretation: Performing Lab: Notes/Report: THC NEG 0 - 50 ng/ml Cocaine NEG 0 - 300 ng/ml Amphetamine NEG 0 - 1000 ng/ml Buprenorphine (BUP) NEG 0 - 10 ng/ml Secobarbital (Bar) NEG 0 - 300 ng/ml Oxazepam (BZO) NEG 0 - 300 ng/ml 1-qdnjspbioe-4,2-soudbizc-6,3-diphenylpyrrolidine (KEYSHA P) NEG 0 - 300 ng/ml Methamphetamine (MET) NEG 0 - 1000 ng/ml Methylenedioxymethamphetamine (MDMA) NEG 0 - 500 ng/ml Morphine (MOP 300/[id number]) NEG 0 - 300 ng/ml Methadone (MTD) NEG 0 - 300 ng/ml Phencyclidine (PCP) NEG 0 - 25 ng/ml Nortriptyline (TCA) NEG 0 - 1000 ng/ml Oxycodone NEG 0 - 300 ng/ml x NEG 0 - 300 ng/ml Reason For Referral No Information Medications Medication SIG (Take, Route, Frequency, Duration) Notes Start Date End Date Status Omeprazole 20 MG Oral; Duration: 90 Days Active ALPRAZolam 0.25 MG 1 tablet Oral once a day; Duration: 30 days Active Sertraline HCl 50 MG 1.5 tablet Oral Onc e a day; Duration: 90 days Active Metoprolol Succinate ER 50 MG TAKE 1 & 1/2 (ONE & ONE-HALF) TABLETS BY MOUTH ONCE DAILY Oral; Duration: 90 Days Active Furosemide 20 MG TAKE 1 TABLET BY SARI TH ONCE DAILY Oral; Duration: 30 Days Active ProAir RespiClick 108 (90 Base) MCG/ACT Inhalation; Duration: 17 Days Active Entresto 97-103 MG TAKE 1 TABLET BY SARI TH TWICE DAILY Oral; Duration: 30 Days Active Metoprolol Succinate ER 100 MG 1 tablet Orally Once a day; Duration: 90 days Active Immunizations Vaccine Route Administration Date Status Comme nts Influenza virus vaccine, quadrivalent (IIV4), split virus, 0.25 mL dosage Unknown 05/26/2018 Administered Influenza, high dose seasonal Unknown 07/01/2015 Admini stered Influenza, high dose seasonal Unknown 06/29/2016 Admini stered Influenza, high dose seasonal Unknown 06/05/2017 Admini stered Influenza, high dose seasonal Unknown 06/21/2019 Admini stered Influenza, high-dose seasona l, quadrivalent, preservative free >65 yrs Unknown 06/09/2020 Administered Influenza, injectable, MDCK, preservative free Unknown 05/26/2021 Administered Pfizer Biontech Covid-19 Vac cine 2nd dose Unknown 11/19/2020 Administered Pfizer Biontech Covid-19 Vac cine 2nd dose Unknown 12/10/2020 Administered Pfizer Biontech Covid-19 Vac cine 2nd dose Unknown 06/25/2021 Administered Pfizer Biontech Covid-19 Vac cine 2nd dose Unknown 01/14/2022 Administered Pneumococcal conjugate PCV 13 Unknown 09/25/2016 Admini stered Pneumococcal polysaccharide PPV23 Unknown 06/18/2015 Ad ministered Tdap Unknown 04/14/2017 Administered Zoster Unknown 01/10/2019 Administered Zoster Unknown 04/10/2019 Administered Social History Tobacco Use: Social History Observation Description Date Details (start date - stop date) Never Smoker NA - NA Sex Assigned At : Social History Observation Description Sex Assigned At Female Tobacco Control (Standard) Question Answer Notes Tobacco use: Nonsmoker AUDIT-C (Standard) Question Answer Notes Did you have a drink containing alcohol in the p ast year? No Problems Problem Type SNOMED Code ICD Code Onset Dates Problem Status W/U Status Risk Notes Problem Recurrent major depression (66102570) Major depressive disorder, recurrent, in remission, unspecified (F33.40) 01/22/20 24 Active confirmed Problem Generalized anxiety disorder (92024291) Generalized anxiety disorder (F41.1) 01/22/20 24 Active confirmed Problem Moderate recurrent major depression (07071993) Moderate recurrent major depression (F33.1) Active confirmed Problem Left bundle branch block (98032760) LBBB (left bundle branch block) (I44.7) 07/14/20 23 Active confirmed Problem Systolic heart failure (045672519) HFrEF (heart failure with reduced ejection fraction) (CMS/HCC) (I50.20) 09/27/19 24 Active confirmed Problem Automatic implantable cardiac defibrillator in situ (306879900) Presence of biventricular automatic cardioverter/defi brillator (AICD) (Z95.810) 03/05/20 24 Active confirmed Problem Dilated cardiomyopathy (779328233) Dilated cardiomyopathy (CMS/HCC) (I42.0) 12/25/19 24 Active confirmed Problem Mild cognitive disorder (441274534) MCI (mild cognitive impairment) (G31.84) Active confirmed Vital Signs Heart Rate 72 /min 12/12/2024 Height-cm 152.40 cm 12/12/2024 Blood pressure diastolic 72 mm Hg 12/12/2024 Weight-kg 50.8 kg 12/12/2024 Height 60.00 in 12/12/2024 Blood pressure systolic 126 mm Hg 12/12/2024 Weight 112.0 lbs 12/12/2024 BMI 21.87 kg/m2 12/12/2024 Encounters Encounter Location Date Provider Diagnosis [facility] [address] [place] [id number] 06/24/2024 Stefano Oswald Generalized anxiety disorder F41.1 ; Moderate recurrent major depression F33.1 ; Dilated cardiomyopathy (CMS/HCC) I42.0 ; Presence of biventricular automatic cardioverter/defibrillat or (AICD) Z95.810 ; HFrEF (heart failure with reduced ejection fraction) (CMS/HCC) I50.20 ; LBBB (left bundle branch block) I44.7 and MCI (mild cognitive impairment) G31.84 [facility] [employer] [place] [id number] [facility] [address] [facility] [address] [place] [address] 09/13/2024 Stefanodavid Montezam Generalized anxiety disorder F41.1 ; Moderate recurrent major depression F33.1 ; Dilated cardiomyopathy (CMS/HCC) I42.0 ; Presence of biventricular automatic cardioverter/defibrillat or (AICD) Z95.810 ; HFrEF (heart failure with reduced ejection fraction) (CMS/HCC) I50.20 ; LBBB (left bundle branch block) I44.7 and MCI (mild cognitive impairment) G31.84 [facility] [employer] [place] [address] [facility] [address] [place] [address] 11/14/2024 Stefano Darek MCI (mild cognitive impairment) G31.84 [facility] [place] [address] [facility] [address] [place] [address] 12/12/2024 Stefano Darek Encounter for screen ing for cardiovascular disorders Z13.6 ; Encounter for screening for depression Z13.31 ; Generalized anxiety disorder F41.1 ; Moderate recurrent major depression F33.1 ; Dilated cardiomyopathy (CMS/HCC) I42.0 ; Presence of biventricular automatic cardioverter/defibrillat or (AICD) Z95.810 ; HFrEF (heart failure with reduced ejection fraction) (CMS/HCC) I50.20 ; LBBB (left bundle branch block) I44.7 and MCI (mild cognitive impairment) G31.84 Assessments Encounter Date Diagnosis (ICD Code) Assessment Notes Treatment Notes Treatment Clinical Notes Section Notes 06/24/2024 Generalized anxiety disorder (ICD-10 - F41.1) Anxiety - Assessment: Patient reports some increased anxiety during recent hospitalizations but no panic attacks or anxiety attacks. Currently on sertraline 75 mg and Xanax 0.25 mg as needed (10 tablets). - Plan: - Continue sertraline 75 mg daily. - Continue Xanax 0.25 mg as needed for anxiety, patient reports having enough at home. Recent Hospitalizations - Assessment: Patient was hospitalized twice, once at the end of March and once at the beginning of April, for pleural effusion, pericardial effusion, and pneumonia. Patient reports improvement and feeling better after receiving antibiotics. Patient visited ER on April 08 for chest pain, initially thought to be a heart attack but was diagnosed as probable GERD. Follow-up with primary care doctor led to ER visit and subsequent hospitalization for pneumonia and effusions. Fever returned after initial antibiotics, leading to second hospitalization. - Plan: - Encourage follow-up with primary care physician, Dr. Jonathan Freeman, for ongoing monitoring and management of heart and lung issues. - Send a report of today's visit to Dr. Freeman. Advanced Care Planning - Assessment: Patient has discussed advanced care planning with her and nephew, who have medical power of sales support representative. - Plan: - Encourage patient to continue discussing and finalizing advanced care planning with family members. Social Support - Assessment: Patient's and friends provide support at home. - Plan: - Encourage patient to continue utilizing social support network during times of illness and hospitalization. Coordination with [facility] - Assessment: Patient was admitted to [facility] for recent health issues. - Plan: - Work on establishing a connection with [facility] to facilitate communication and coordination of care for the patient in the future. - Inform patient that this connection will allow for better information sharing if she is admitted to the hospital again. 09/13/2024 Generalized anxiety disorder (ICD-10 - F41.1) 12/12/2024 Encounter for screening for cardiovascular disorders (ICD-10 - Z13.6) SUMMARY Date Range: 11/14/2024 Summary: The medical records for Celeste Doll include cognitive assessments and evaluations of daily living skills. The [facility] Cognitive Assessment Report indicates subjective cognitive decline, with scores suggesting potential mild cognitive impairment (MCI). The IQCODE-SR results show an average score of 3.69, above the threshold for MCI, indicating subjective cognitive decline. The [facility] Clinical Report highlights that while subjective cognitive decline is reported, objective cognitive impairment is not detected, and the patient remains functionally independent according to the IADL scale. The IADL Report confirms high functional independence with a score of 8/8, indicating no dependence on others for daily activities. Results: - Cognitive Assessment: Below average in verbal short-term memory (Digit Span: 82) and response inhibition (Double Trouble: 88). Other cognitive domains are within the average range. - IQCODE-SR: Indicative of subjective cognitive decline with a score of 3.69. - IADL: High function, independent with a score of 8/8. Interpretation: The assessments suggest subjective cognitive decline but do not meet the criteria for mild neurocognitive disorder. The patient remains independent in daily activities, and further clinical observation is recommended to monitor potential cognitive changes. 11/14/2024 MCI (mild cognitive impairment) (ICD-10 - G31.84) Cognitive and Functional Assessment Summary Demographics Age & Gender: 73-year-old female Cognitive Test Scores Test Score Feature Match 90 Paired Associates 100 Double Trouble 88 Number Ladder 106 Rotations 95 Digit Span 82 Screening Scores Assessment Score Interpretation SLUMS ([facility] Mental Status Examination) 28 Normal cognition (Cutoff: 27-30 for individuals with a high school education) IQCODE (Informant Questionnaire on Cognitive Decline in the Elderly) 3.69 Mild cognitive impairment (MCI) likely (Cutoff: >3.31 suggests cognitive decline) Interpretation & Summary Cognitive Performance: Strengths: Strong performance in Number Ladder (106) and Paired Associates (100), indicating good numerical reasoning and associative memory. Potential Weaknesses: Lower Digit Span (82), suggesting mild working memory difficulty. Overall: Most scores are within a typical range for age, but some variability suggests potential minor executive function difficulties. SLUMS Score (28/30): Falls in the normal cognitive range, suggesting intact global cognition. IQCODE Score (3.69): Indicates mild cognitive impairment (MCI). This suggests that while daily functioning may still be intact, there may be some noticeable changes in memory, problem-solving , or attention. Recommendations Further Monitoring: Given the IQCODE score, continued cognitive tracking is advised. Executive Function Support: Given the slightly lower Digit Span score, strategies to improve working memory (e.g., structured routines, memory aids) may be beneficial. Functional Impact Consideration: Despite a normal SLUMS score, subjective reports of cognitive change should be taken seriously. Lifestyle & Cognitive Health: Engaging in regular mental stimulation, physical exercise, and social activities may help maintain cognitive function. Would you like a more detailed breakdown of any particular result? Cognitive Exercises for Maintaining and Enhancing Brain Function Since your assessment suggests mild cognitive impairment likelihood but normal overall cognition, focusing on memory, executive function, and attention can be beneficial. Below are targeted exercises to help strengthen these cognitive abilities. 1. Memory Enhancement Exercises Paired Word Recall: Create a list of word pairs, such as tree and river. After a short delay, try to recall the second word. Story Retelling: Read a short story or news article, then summarize it from memory. Visualization Technique: Memorize a list of ten items by picturing them in familiar places, such as groceries placed in different rooms of your home. 2. Attention and Concentration Boosters Feature Match and Spot the Difference: Engage in tasks that require careful observation and comparison. Dual-Task Exercises: Listen to a podcast while solving a puzzle to improve divided attention. Stroop Test Variations: Read color words printed in a different ink color, such as the word red written in blue ink, to challenge cognitive flexibility. 3. Executive Function and Problem-Solvin g Activities Number Ladder and Sudoku: Improves logical reasoning and pattern recognition. Planning Challenges: Organize your week's schedule without assistance to strengthen executive functioning. Board Games like Chess, Scrabble, or Rummikub: Encourages strategic thinking and cognitive flexibility. 4. Working Memory and Processing Speed Drills Digit Span Backwards: Try recalling a sequence of numbers in reverse order. N-Back Training with Brain Games Apps: Challenges working memory by tracking previously presented information. Speed-Based Brain Games such as Lumosity, Elevate, or Peak Apps: Exercises reaction time and cognitive processing. 5. Social and Lifestyle-Base d Cognitive Stimulation Learning a New Skill: Take up painting, music, or a new language to create new neural connections. Group Discussions and Debates: Engages memory, processing, and reasoning abilities. Physical Activities with Coordination such as Tyler Chi, Dance, or Yoga: Improves brain-body connections and cognitive flexibility. 12/12/2024 Encounter for screening for depression (ICD-10 - Z13.31) SUMMARY Date Range: 11/14/2024 Summary: The medical records for Celeste Doll include cognitive assessments and evaluations of daily living skills. The [facility] Cognitive Assessment Report indicates subjective cognitive decline, with scores suggesting potential mild cognitive impairment (MCI). The IQCODE-SR results show an average score of 3.69, above the threshold for MCI, indicating subjective cognitive decline. The [facility] Clinical Report highlights that while subjective cognitive decline is reported, objective cognitive impairment is not detected, and the patient remains functionally independent according to the IADL scale. The IADL Report confirms high functional independence with a score of 8/8, indicating no dependence on others for daily activities. Results: - Cognitive Assessment: Below average in verbal short-term memory (Digit Span: 82) and response inhibition (Double Trouble: 88). Other cognitive domains are within the average range. - IQCODE-SR: Indicative of subjective cognitive decline with a score of 3.69. - IADL: High function, independent with a score of 8/8. Interpretation: The assessments suggest subjective cognitive decline but do not meet the criteria for mild neurocognitive disorder. The patient remains independent in daily activities, and further clinical observation is recommended to monitor potential cognitive changes. 09/13/2024 Moderate recurrent major depression (ICD-10 - F33.1) 06/24/2024 Dilated cardiomyopathy (CMS/HCC) (ICD-10 - I42.0) Anxiety - Assessment: Patient reports some increased anxiety during recent hospitalizations but no panic attacks or anxiety attacks. Currently on sertraline 75 mg and Xanax 0.25 mg as needed (10 tablets). - Plan: - Continue sertraline 75 mg daily. - Continue Xanax 0.25 mg as needed for anxiety, patient reports having enough at home. Recent Hospitalizations - Assessment: Patient was hospitalized twice, once at the end of March and once at the beginning of April, for pleural effusion, pericardial effusion, and pneumonia. Patient reports improvement and feeling better after receiving antibiotics. Patient visited ER on April 08 for chest pain, initially thought to be a heart attack but was diagnosed as probable GERD. Follow-up with primary care doctor led to ER visit and subsequent hospitalization for pneumonia and effusions. Fever returned after initial antibiotics, leading to second hospitalization. - Plan: - Encourage follow-up with primary care physician, Dr. Jonathan Freeman, for ongoing monitoring and management of heart and lung issues. - Send a report of today's visit to Dr. Freeman. Advanced Care Planning - Assessment: Patient has discussed advanced care planning with her and nephew, who have medical power of sales support representative. - Plan: - Encourage patient to continue discussing and finalizing advanced care planning with family members. Social Support - Assessment: Patient's and friends provide support at home. - Plan: - Encourage patient to continue utilizing social support network during times of illness and hospitalization. Coordination with [facility] - Assessment: Patient was admitted to [facility] for recent health issues. - Plan: - Work on establishing a connection with [facility] to facilitate communication and coordination of care for the patient in the future. - Inform patient that this connection will allow for better information sharing if she is admitted to the hospital again. 06/24/2024 Moderate recurrent major depression (ICD-10 - F33.1) Anxiety - Assessment: Patient reports some increased anxiety during recent hospitalizations but no panic attacks or anxiety attacks. Currently on sertraline 75 mg and Xanax 0.25 mg as needed (10 tablets). - Plan: - Continue sertraline 75 mg daily. - Continue Xanax 0.25 mg as needed for anxiety, patient reports having enough at home. Recent Hospitalizations - Assessment: Patient was hospitalized twice, once at the end of March and once at the beginning of April, for pleural effusion, pericardial effusion, and pneumonia. Patient reports improvement and feeling better after receiving antibiotics. Patient visited ER on April 08 for chest pain, initially thought to be a heart attack but was diagnosed as probable GERD. Follow-up with primary care doctor led to ER visit and subsequent hospitalization for pneumonia and effusions. Fever returned after initial antibiotics, leading to second hospitalization. - Plan: - Encourage follow-up with primary care physician, Dr. Jonathan Freeman, for ongoing monitoring and management of heart and lung issues. - Send a report of today's visit to Dr. Freeman. Advanced Care Planning - Assessment: Patient has discussed advanced care planning with her and nephew, who have medical power of sales support representative. - Plan: - Encourage patient to continue discussing and finalizing advanced care planning with family members. Social Support - Assessment: Patient's and friends provide support at home. - Plan: - Encourage patient to continue utilizing social support network during times of illness and hospitalization. Coordination with [facility] - Assessment: Patient was admitted to [facility] for recent health issues. - Plan: - Work on establishing a connection with [facility] to facilitate communication and coordination of care for the patient in the future. - Inform patient that this connection will allow for better information sharing if she is admitted to the hospital again. 06/24/2024 Presence of biventricular automatic cardioverter/def ibrillator (AICD) (ICD-10 - Z95.810) Anxiety - Assessment: Patient reports some increased anxiety during recent hospitalizations but no panic attacks or anxiety attacks. Currently on sertraline 75 mg and Xanax 0.25 mg as needed (10 tablets). - Plan: - Continue sertraline 75 mg daily. - Continue Xanax 0.25 mg as needed for anxiety, patient reports having enough at home. Recent Hospitalizations - Assessment: Patient was hospitalized twice, once at the end of March and once at the beginning of April, for pleural effusion, pericardial effusion, and pneumonia. Patient reports improvement and feeling better after receiving antibiotics. Patient visited ER on April 08 for chest pain, initially thought to be a heart attack but was diagnosed as probable GERD. Follow-up with primary care doctor led to ER visit and subsequent hospitalization for pneumonia and effusions. Fever returned after initial antibiotics, leading to second hospitalization. - Plan: - Encourage follow-up with primary care physician, Dr. Jonathan Freeman, for ongoing monitoring and management of heart and lung issues. - Send a report of today's visit to Dr. Freeman. Advanced Care Planning - Assessment: Patient has discussed advanced care planning with her and nephew, who have medical power of sales support representative. - Plan: - Encourage patient to continue discussing and finalizing advanced care planning with family members. Social Support - Assessment: Patient's and friends provide support at home. - Plan: - Encourage patient to continue utilizing social support network during times of illness and hospitalization. Coordination with [facility] - Assessment: Patient was admitted to [facility] for recent health issues. - Plan: - Work on establishing a connection with [facility] to facilitate communication and coordination of care for the patient in the future. - Inform patient that this connection will allow for better information sharing if she is admitted to the hospital again. 09/13/2024 Dilated cardiomyopathy (CMS/HCC) (ICD-10 - I42.0) 12/12/2024 Generalized anxiety disorder (ICD-10 - F41.1) SUMMARY Date Range: 11/14/2024 Summary: The medical records for Celeste Doll include cognitive assessments and evaluations of daily living skills. The [facility] Cognitive Assessment Report indicates subjective cognitive decline, with scores suggesting potential mild cognitive impairment (MCI). The IQCODE-SR results show an average score of 3.69, above the threshold for MCI, indicating subjective cognitive decline. The [facility] Clinical Report highlights that while subjective cognitive decline is reported, objective cognitive impairment is not detected, and the patient remains functionally independent according to the IADL scale. The IADL Report confirms high functional independence with a score of 8/8, indicating no dependence on others for daily activities. Results: - Cognitive Assessment: Below average in verbal short-term memory (Digit Span: 82) and response inhibition (Double Trouble: 88). Other cognitive domains are within the average range. - IQCODE-SR: Indicative of subjective cognitive decline with a score of 3.69. - IADL: High function, independent with a score of 8/8. Interpretation: The assessments suggest subjective cognitive decline but do not meet the criteria for mild neurocognitive disorder. The patient remains independent in daily activities, and further clinical observation is recommended to monitor potential cognitive changes. 09/13/2024 Presence of biventricular automatic cardioverter/def ibrillator (AICD) (ICD-10 - Z95.810) 12/12/2024 Moderate recurrent major depression (ICD-10 - F33.1) SUMMARY Date Range: 11/14/2024 Summary: The medical records for Celeste Doll include cognitive assessments and evaluations of daily living skills. The [facility] Cognitive Assessment Report indicates subjective cognitive decline, with scores suggesting potential mild cognitive impairment (MCI). The IQCODE-SR results show an average score of 3.69, above the threshold for MCI, indicating subjective cognitive decline. The [facility] Clinical Report highlights that while subjective cognitive decline is reported, objective cognitive impairment is not detected, and the patient remains functionally independent according to the IADL scale. The IADL Report confirms high functional independence with a score of 8/8, indicating no dependence on others for daily activities. Results: - Cognitive Assessment: Below average in verbal short-term memory (Digit Span: 82) and response inhibition (Double Trouble: 88). Other cognitive domains are within the average range. - IQCODE-SR: Indicative of subjective cognitive decline with a score of 3.69. - IADL: High function, independent with a score of 8/8. Interpretation: The assessments suggest subjective cognitive decline but do not meet the criteria for mild neurocognitive disorder. The patient remains independent in daily activities, and further clinical observation is recommended to monitor potential cognitive changes. 06/24/2024 HFrEF (heart failure with reduced ejection fraction) ([facility]) (ICD-10 - I50.20) Anxiety - Assessment: Patient reports some increased anxiety during recent hospitalizations but no panic attacks or anxiety attacks. Currently on sertraline 75 mg and Xanax 0.25 mg as needed (10 tablets). - Plan: - Continue sertraline 75 mg daily. - Continue Xanax 0.25 mg as needed for anxiety, patient reports having enough at home. Recent Hospitalizations - Assessment: Patient was hospitalized twice, once at the end of March and once at the beginning of April, for pleural effusion, pericardial effusion, and pneumonia. Patient reports improvement and feeling better after receiving antibiotics. Patient visited ER on April 08 for chest pain, initially thought to be a heart attack but was diagnosed as probable GERD. Follow-up with primary care doctor led to ER visit and subsequent hospitalization for pneumonia and effusions. Fever returned after initial antibiotics, leading to second hospitalization. - Plan: - Encourage follow-up with primary care physician, Dr. Jonathan Freeman, for ongoing monitoring and management of heart and lung issues. - Send a report of today's visit to Dr. Freeman. Advanced Care Planning - Assessment: Patient has discussed advanced care planning with her and nephew, who have medical power of sales support representative. - Plan: - Encourage patient to continue discussing and finalizing advanced care planning with family members. Social Support - Assessment: Patient's and friends provide support at home. - Plan: - Encourage patient to continue utilizing social support network during times of illness and hospitalization. Coordination with [facility] - Assessment: Patient was admitted to [facility] for recent health issues. - Plan: - Work on establishing a connection with [facility] to facilitate communication and coordination of care for the patient in the future. - Inform patient that this connection will allow for better information sharing if she is admitted to the hospital again. 06/24/2024 LBBB (left bundle branch block) (ICD-10 - I44.7) Anxiety - Assessment: Patient reports some increased anxiety during recent hospitalizations but no panic attacks or anxiety attacks. Currently on sertraline 75 mg and Xanax 0.25 mg as needed (10 tablets). - Plan: - Continue sertraline 75 mg daily. - Continue Xanax 0.25 mg as needed for anxiety, patient reports having enough at home. Recent Hospitalizations - Assessment: Patient was hospitalized twice, once at the end of March and once at the beginning of April, for pleural effusion, pericardial effusion, and pneumonia. Patient reports improvement and feeling better after receiving antibiotics. Patient visited ER on April 08 for chest pain, initially thought to be a heart attack but was diagnosed as probable GERD. Follow-up with primary care doctor led to ER visit and subsequent hospitalization for pneumonia and effusions. Fever returned after initial antibiotics, leading to second hospitalization. - Plan: - Encourage follow-up with primary care physician, Dr. Jonathan Freeman, for ongoing monitoring and management of heart and lung issues. - Send a report of today's visit to Dr. Freeman. Advanced Care Planning - Assessment: Patient has discussed advanced care planning with her and nephew, who have medical power of sales support representative. - Plan: - Encourage patient to continue discussing and finalizing advanced care planning with family members. Social Support - Assessment: Patient's and friends provide support at home. - Plan: - Encourage patient to continue utilizing social support network during times of illness and hospitalization. Coordination with [facility] - Assessment: Patient was admitted to [facility] for recent health issues. - Plan: - Work on establishing a connection with [facility] to facilitate communication and coordination of care for the patient in the future. - Inform patient that this connection will allow for better information sharing if she is admitted to the hospital again. 09/13/2024 HFrEF (heart failure with reduced ejection fraction) (CMS/HCC) (ICD-10 - I50.20) 12/12/2024 Dilated cardiomyopathy (CMS/HCC) (ICD-10 - I42.0) SUMMARY Date Range: 11/14/2024 Summary: The medical records for Celeste Doll include cognitive assessments and evaluations of daily living skills. The [facility] Cognitive Assessment Report indicates subjective cognitive decline, with scores suggesting potential mild cognitive impairment (MCI). The IQCODE-SR results show an average score of 3.69, above the threshold for MCI, indicating subjective cognitive decline. The [facility] Clinical Report highlights that while subjective cognitive decline is reported, objective cognitive impairment is not detected, and the patient remains functionally independent according to the IADL scale. The IADL Report confirms high functional independence with a score of 8/8, indicating no dependence on others for daily activities. Results: - Cognitive Assessment: Below average in verbal short-term memory (Digit Span: 82) and response inhibition (Double Trouble: 88). Other cognitive domains are within the average range. - IQCODE-SR: Indicative of subjective cognitive decline with a score of 3.69. - IADL: High function, independent with a score of 8/8. Interpretation: The assessments suggest subjective cognitive decline but do not meet the criteria for mild neurocognitive disorder. The patient remains independent in daily activities, and further clinical observation is recommended to monitor potential cognitive changes. 12/12/2024 Presence of biventricular automatic cardioverter/def ibrillator (AICD) (ICD-10 - Z95.810) SUMMARY Date Range: 11/14/2024 Summary: The medical records for Celeste Doll include cognitive assessments and evaluations of daily living skills. The [facility] Cognitive Assessment Report indicates subjective cognitive decline, with scores suggesting potential mild cognitive impairment (MCI). The IQCODE-SR results show an average score of 3.69, above the threshold for MCI, indicating subjective cognitive decline. The [facility] Clinical Report highlights that while subjective cognitive decline is reported, objective cognitive impairment is not detected, and the patient remains functionally independent according to the IADL scale. The IADL Report confirms high functional independence with a score of 8/8, indicating no dependence on others for daily activities. Results: - Cognitive Assessment: Below average in verbal short-term memory (Digit Span: 82) and response inhibition (Double Trouble: 88). Other cognitive domains are within the average range. - IQCODE-SR: Indicative of subjective cognitive decline with a score of 3.69. - IADL: High function, independent with a score of 8/8. Interpretation: The assessments suggest subjective cognitive decline but do not meet the criteria for mild neurocognitive disorder. The patient remains independent in daily activities, and further clinical observation is recommended to monitor potential cognitive changes. 06/24/2024 MCI (mild cognitive impairment) (ICD-10 - G31.84) Anxiety - Assessment: Patient reports some increased anxiety during recent hospitalizations but no panic attacks or anxiety attacks. Currently on sertraline 75 mg and Xanax 0.25 mg as needed (10 tablets). - Plan: - Continue sertraline 75 mg daily. - Continue Xanax 0.25 mg as needed for anxiety, patient reports having enough at home. Recent Hospitalizations - Assessment: Patient was hospitalized twice, once at the end of March and once at the beginning of April, for pleural effusion, pericardial effusion, and pneumonia. Patient reports improvement and feeling better after receiving antibiotics. Patient visited ER on April 08 for chest pain, initially thought to be a heart attack but was diagnosed as probable GERD. Follow-up with primary care doctor led to ER visit and subsequent hospitalization for pneumonia and effusions. Fever returned after initial antibiotics, leading to second hospitalization. - Plan: - Encourage follow-up with primary care physician, Dr. Jonathan Freeman, for ongoing monitoring and management of heart and lung issues. - Send a report of today's visit to Dr. Freeman. Advanced Care Planning - Assessment: Patient has discussed advanced care planning with her and nephew, who have medical power of sales support representative. - Plan: - Encourage patient to continue discussing and finalizing advanced care planning with family members. Social Support - Assessment: Patient's and friends provide support at home. - Plan: - Encourage patient to continue utilizing social support network during times of illness and hospitalization. Coordination with [facility] - Assessment: Patient was admitted to [facility] for recent health issues. - Plan: - Work on establishing a connection with [facility] to facilitate communication and coordination of care for the patient in the future. - Inform patient that this connection will allow for better information sharing if she is admitted to the hospital again. 09/13/2024 LBBB (left bundle branch block) (ICD-10 - I44.7) 09/13/2024 MCI (mild cognitive impairment) (ICD-10 - G31.84) 12/12/2024 HFrEF (heart failure with reduced ejection fraction) ([facility]) (ICD-10 - I50.20) SUMMARY Date Range: 11/14/2024 Summary: The medical records for Celeste Doll include cognitive assessments and evaluations of daily living skills. The [facility] Cognitive Assessment Report indicates subjective cognitive decline, with scores suggesting potential mild cognitive impairment (MCI). The IQCODE-SR results show an average score of 3.69, above the threshold for MCI, indicating subjective cognitive decline. The [facility] Clinical Report highlights that while subjective cognitive decline is reported, objective cognitive impairment is not detected, and the patient remains functionally independent according to the IADL scale. The IADL Report confirms high functional independence with a score of 8/8, indicating no dependence on others for daily activities. Results: - Cognitive Assessment: Below average in verbal short-term memory (Digit Span: 82) and response inhibition (Double Trouble: 88). Other cognitive domains are within the average range. - IQCODE-SR: Indicative of subjective cognitive decline with a score of 3.69. - IADL: High function, independent with a score of 8/8. Interpretation: The assessments suggest subjective cognitive decline but do not meet the criteria for mild neurocognitive disorder. The patient remains independent in daily activities, and further clinical observation is recommended to monitor potential cognitive changes. 12/12/2024 LBBB (left bundle branch block) (ICD-10 - I44.7) SUMMARY Date Range: 11/14/2024 Summary: The medical records for Celeste Doll include cognitive assessments and evaluations of daily living skills. The [facility] Cognitive Assessment Report indicates subjective cognitive decline, with scores suggesting potential mild cognitive impairment (MCI). The IQCODE-SR results show an average score of 3.69, above the threshold for MCI, indicating subjective cognitive decline. The [facility] Clinical Report highlights that while subjective cognitive decline is reported, objective cognitive impairment is not detected, and the patient remains functionally independent according to the IADL scale. The IADL Report confirms high functional independence with a score of 8/8, indicating no dependence on others for daily activities. Results: - Cognitive Assessment: Below average in verbal short-term memory (Digit Span: 82) and response inhibition (Double Trouble: 88). Other cognitive domains are within the average range. - IQCODE-SR: Indicative of subjective cognitive decline with a score of 3.69. - IADL: High function, independent with a score of 8/8. Interpretation: The assessments suggest subjective cognitive decline but do not meet the criteria for mild neurocognitive disorder. The patient remains independent in daily activities, and further clinical observation is recommended to monitor potential cognitive changes. 12/12/2024 MCI (mild cognitive impairment) (ICD-10 - G31.84) SUMMARY Date Range: 11/14/2024 Summary: The medical records for Celeste Doll include cognitive assessments and evaluations of daily living skills. The [facility] Cognitive Assessment Report indicates subjective cognitive decline, with scores suggesting potential mild cognitive impairment (MCI). The IQCODE-SR results show an average score of 3.69, above the threshold for MCI, indicating subjective cognitive decline. The [facility] Clinical Report highlights that while subjective cognitive decline is reported, objective cognitive impairment is not detected, and the patient remains functionally independent according to the IADL scale. The IADL Report confirms high functional independence with a score of 8/8, indicating no dependence on others for daily activities. Results: - Cognitive Assessment: Below average in verbal short-term memory (Digit Span: 82) and response inhibition (Double Trouble: 88). Other cognitive domains are within the average range. - IQCODE-SR: Indicative of subjective cognitive decline with a score of 3.69. - IADL: High function, independent with a score of 8/8. Interpretation: The assessments suggest subjective cognitive decline but do not meet the criteria for mild neurocognitive disorder. The patient remains independent in daily activities, and further clinical observation is recommended to monitor potential cognitive changes. 12/12/2024 Other Celeste Doll, female patient with history of anxiety and depression, presents for follow-up and review of recent MCI (Mild Cognitive Impairment) testing results. Cognitive Function Assessment: Patient underwent MCI testing with overall good results. SLUMS score was 28, indicating some cognitive issues but not significant. Attention, focus, and contextual memory were average. Ability to block background noise, focus on tasks, and follow gwhv-go-bepy instructions were good. Below average performance noted in processing long sentences, remembering digit sequences, and taking notes during meetings. Patient reports some difficulty learning new things compared to 10 years ago. Overall, test results do not indicate mild cognitive disorder at this time. Plan: - Repeat MCI testing annually or sooner if patient notices more memory changes - Provide patient with copy of test results Anxiety Assessment: Patient reports a little anxiety, but nothing more than normal. Currently managed with Alprazolam 0.25 mg daily as needed. Patient tries to limit use to times of significant anxiety. Plan: - Continue Alprazolam 0.25 mg daily as needed for anxiety - No refill needed at this time Depression Assessment: Patient reports a little depression, but nothing more than normal. Currently managed with Sertraline 75 mg daily. Plan: - Continue Sertraline 75 mg PO daily - Refill Sertraline to be sent to [facility] pharmacy Follow-up Assessment: Patient requests longer interval between appointments due to numerous doctor visits. Plan: - Schedule follow-up appointment in 5 months Disclaimer: This note has been transcribed using speech recognition software and serves as a reflection of the patient's visit. While efforts have been made to ensure accuracy, there may be errors, including community resource officer inaccuracies and misspellings of medication names. This document should not be considered a verbatim record, and any discrepancies should be verified with the provider. SUMMARY Date Range: 11/14/2024 Summary: The medical records for Celeste Doll include cognitive assessments and evaluations of daily living skills. The [facility] Cognitive Assessment Report indicates subjective cognitive decline, with scores suggesting potential mild cognitive impairment (MCI). The IQCODE-SR results show an average score of 3.69, above the threshold for MCI, indicating subjective cognitive decline. The [facility] Clinical Report highlights that while subjective cognitive decline is reported, objective cognitive impairment is not detected, and the patient remains functionally independent according to the IADL scale. The IADL Report confirms high functional independence with a score of 8/8, indicating no dependence on others for daily activities. Results: - Cognitive Assessment: Below average in verbal short-term memory (Digit Span: 82) and response inhibition (Double Trouble: 88). Other cognitive domains are within the average range. - IQCODE-SR: Indicative of subjective cognitive decline with a score of 3.69. - IADL: High function, independent with a score of 8/8. Interpretation: The assessments suggest subjective cognitive decline but do not meet the criteria for mild neurocognitive disorder. The patient remains independent in daily activities, and further clinical observation is recommended to monitor potential cognitive changes. Plan Of Treatment Next Appt Details Provider Name:Stefano Oswald , 05/02/2025 08:45:00 AM, [address], [facility] [address], [place], [address], Insurance Providers Payer Name Payer Address Payer Phone Subscriber Number Group Number Insured Name Patient Relationship to Insured Coverage Start Date Coverage End Date [employer] Medicare Replacement/ Advantage - Hmo [address] [place] [phone] [id number] CELESTE DOLL Self - patient is the insured Medical (General) History Medical History History ICD Code Problems: Amnesia Generalized anxiety disorder Recurrent major depression in remission , Surgical History Surgery Date(Month/Year) Maintenance of automatic cardiac defibri llator ([id number]) 12/25/2023 Any surgical history 01/23/1999 Oophorectomy (79026) 02/11/1999 Other 02/11/1999 Tonsilectomy/adenoids 03/09/1968 pacemaker revision 03/04/2024 Hospitalization History Reason Date(Month/Year) pneumonia 04/2024 pleural effusion 03/2024 pacemaker revision 03/04/2024
--- OUTSIDE RECORDS SUMMARY | 2025-04-08 11:33 | XMS_ITS ---
Author Organization [facility] Address [address] [place] [address] Care Team Providers Care Baseball Player Name Role Phone Jonathan Camejo DO Primary Care Provider [phone] Active Problems Problem Noted Date Diagnosed Date Pericardial effusion 06/19/2024 Visit for wound check 03/11/2024 Presence of automatic cardioverter/defibrillator (AICD) 03/04/2024 Presence of biventricular au tomatic cardioverter/defibrillator (AICD) 11/30/2023 Overview (03/05/2024): Juarez Martin [employer] M[employer]-D ICD. Dx; Dilated CM, LBBB, HF w/reduced EF. DOI 12/25/2023-Johnnie. Jeffrey remote. 03/04/2024-Atrial lead explanted, new atrial lead model 2088TC/52 reimplanted- Johnnie. Dilated cardiomyopathy 09/27/2023 HFrEF (heart failure with reduced ejection fract ion) 09/27/2023 Chronic fatigue 07/25/2023 Primary hypertension 07/14/2023 [...] dermatitis and related conditions 0 01/09/2001 Current Treatment and Therapy Plans No current plan information found. Past Treatment and Therapy Plans No past plan information found. Lifetime Dose Tracking * Chemical Lifetime Dose Automatic Entry Manual Entr y Air kerma at the reference point (Ka,r) 223 mGy 0 mGy 223 mGy Resolved Problems Problem Noted Date Diagnosed Date Resolved Date Nuclear sclerotic cataract of right eye 08/13/2024 10/09/2024 Nuclear sclerotic cataract of left eye 08/13/2024 10/23/2024
--- OUTSIDE RECORDS SUMMARY | 2025-04-08 11:33 | XMS_ITS | Encounter Summary ---
Author Organization [facility] Address [address] [place] [address] Care Team Providers Care Squirrel Man Name Role Phone Jonathan Camejo DO Primary Care Provider [phone] Reason for Referral * Cardiology (Routine) - Authorized Specialty Diagnoses / Procedures Referred By Contac t Referred To Contact Diagnoses Systolic congestive heart failure, unspecified HF chronicity (HCC) HFrEF (heart failure with reduced ejection fraction) ([facility]) LBBB (left bundle branch block) Presence of biventricular automatic cardioverter/defibrillator (AICD) Procedures Transthoracic Echo (TTE) Complete W Doppler/CF Reuben Villafana MD [address] [place] [address], [address] [address] Phone: tel: fax: [facility] Cardiology [address] [place] [phone] Phone: tel: fax: Referral ID Status Reason Start Date Expiration Date V isits Requested Visits Authorized [id number] Authorized 04/07/2025 05/07/2026 1 1 Reason for Visit * Reason Comments Cardiomyopathy LBBB 6 mo f/u * Consultation (Routine) - Authorized Specialty Diagnoses / Procedures Referred By Contac t Referred To Contact Cardiology Diagnoses Systolic congestive heart failure, unspecified HF chronicity (HCC) Jonathan Camejo, DO [address] [place] [address] Phone: tel: fax: [facility] Cardiology [address] [place] [address] Phone: tel: fax: Referral ID Status Reason Start Date Expiration Date Visits Requested Visits Authorized [id number] Authorized Specialty Services Required 03/13/2025 03/14/2026 12 12 Encounter Details Date Type Department Care Team (Latest Contact Info) Description 04/07/2025 9:15 AM CDT Office Visit [facility] Cardiology [address] [place] [phone] Reuben Villafana MD [address] [facility] [address] [facility] [place] [address] HFrEF (heart failure with reduced ejection fraction) (HCC) (Primary Dx); Systolic congestive heart failure, unspecified HF chronicity (HCC); LBBB (left bundle branch block); Presence of biventricular automatic cardioverter/defibrilla tor (AICD); Primary hypertension; Mixed hyperlipidemia Social History Tobacco Use Types Packs/Day Years [...] making you feel afraid or unsafe? 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 Gender Identity Female 02/14/2023 2:01 PM CDT Sexual Orientation Straight 02/14/2023 2: 01 PM CDT documented as of this encounter Last Filed Vital Signs Vital Sign Reading Time Taken Comments Blood Pressure 114/62 04/07/2025 9:15 AM CDT Pulse 73 04/07/2025 9:15 AM CDT Temperature - - Respiratory Rate - - Oxygen Saturation 96% 04/07/2025 9:15 AM CDT Inhaled Oxygen Concentration - - Weight 51.7 kg (114 lb) 04/07/2025 9:15 AM CDT Height 152.4 cm (5') 04/07/2025 9:15 AM CDT Body Mass Index 22.26 04/07/2025 9:15 AM CDT documented in this encounter Ordered Prescriptions Prescription Sig Dispense Quantity Refills Last Filled Start Date End Date sacubitriL-valsart an (ENTRESTO) 49-51 mg tabletIndications: chronic heart failure Take 1 tablet by mouth 2 (two) times a day 180 tablet 3 04/07/2025 04/07/2026 documented in this encounter Progress Notes * Reuben Villafana MD - 04/07/2025 9:15 AM CDT Images from the original note were not included. [facility] DATE OF VISIT: 04/07/2025 CHIEF COMPLAINT Chief Complaint Patient presents with Cardiomyopathy LBBB 6 mo f/u HPI Celeste Doll is a 74 y.o. female with a PMHx of anxiety, HTN, hyperlipidemia seen in very kind referral by Jonathan Camejo DO for my opinion regarding abnormal stress test and stable angina 07/14/23 Initial visit: For the past 6 months, has noted more ZAYAS with activity such as riding her bike and can get some sig chest pressure in her chest has to stop and takes several minutes to slowly resolve but feels washed out afterwards. She had some chest discomfort prior to stress test she attributed to anxiety but those sxs are typically GI so this is different. Had Lexiscan 07/13 with EF 34% and ivan- infarct ischemia in the moderate severity anterolateral jolly. She does not get sxs walking on flat ground or ADL's generally but more strenuous or stairs, hills, or going quickly brings on anginal sxs. 07/25/23 underwent LHC with no obstructive CAD and EF 55%, still tired, not all that active but no longer having CP. Notes some SOB with activity not bad not resolved. Here with her . Tolerating Toprol and losartan. Day after cath had rash in area with prep, took Zyrtec so that may be why she is tired. 09/27/23 Feeling a little better but still tired, SOB at times but improved. Had a couple CP took SLNTG on 2 occ lessened CP located center to the R chest, one while walking the other woke her from sleep lasted 20-30 min gradually resolved. Isauro. Had cMRI. 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 More good than bad days, still tires out, occ CP but her HR was 100-110 while doingdishes. No syncope. Isauro meds Follow-up note 06/19/2024: She has been hospitalized on 2 separate occasions over the summer for heart failure shortness of breath and fevers. She was found to have pericardial effusion. She was treated with antibiotics. She did undergo a RO also by Dr. Barrera which reportedly showed no evidence of vegetation.She thinks her shortness breath is slightly better. She has no chest pain, syncope, presyncope, paroxysmal nocturnal dyspnea, orthopnea, edema palpitations. Fevers have abated 09/13/2024 office visit with DOMESTIC HELPER: She is here for three-month follow-up. She has dyspnea with activity such as going upstairs or walking up a hill that it is not progressing. She has no dyspnea with ADLs. She is monitoring daily weights and currently is not having edema. PCP has done further workup for persistent cough and she has been referred to pulmonology for abnormal PFTs. This appointment is in 2 weeks. She had questions about her recent echo and last year stress test. Follow-up note 04/07/2025: She denies any chest pain, shortness breath, syncope, paroxysmal nocturnal dyspnea, orthopnea, unusual edema palpitations. She does have some dizziness when bending over and standing up or squatting and standing up. Home blood pressures are generally in the 90s. MEDICAL HISTORY Past Medical History: Diagnosis Date Abnormal stress test Anxiety Arthritis Asthma 09/24/2024 Basal cell carcinoma of skin Basal cell adenocarcinoma - (Added by TW Conv) Bundle branch block, left Cardiomyopathy, dilated, nonischemic (HCC) Cataract Chest pain Depression anxiety Diaphragm paralysis Eczema GERD (gastroesophageal reflux disease) Heart disease 07/18 Hyperlipidemia Hypertension Motion sickness Myopic degeneration Personal history of other specified conditions History of breast lump - (Added by TW Conv) PONV (postoperative nausea and vomiting) year ago pt reports no issue recently Prediabetes Presence of biventricular automatic cardioverter/defibrillator (AICD) Shortness of breath SOB (shortness of breath) on exertion Toenail fungus Social History Tobacco Use Smoking status: Never Passive exposure: Past Smokeless tobacco: Never Substance and Sexual Activity Drug use: Never Sexual activity: Not Currently Partners: Male control/protection: Abstinence Alcohol Use: Not At Risk (10/09/2024) AUDIT-C Frequency of Alcohol Consumption: Never Average Number of Drinks: Patient does not drink Frequency of Binge Drinking: Never Family History Problem Relation Age of Onset Pancreatic cancer Mother Family history of pancreatic cancer - (Added by TW Conv) Arthritis Mother Cancer Mother Rashes / Skin problems Mother Other (pancreatic cancer) Mother Diabetes type II Father Type 2 Diabetes Mellitus - Uncomplicated, Uncontrolled - (Added by TW Conv) Hypertension Father Hypertension - (Added by [employer] Conv) Arthritis Father Depression Father Diabetes Father Hearing loss Father Memory loss Father Vision loss Father Heart disease Father 80 - 99 Diabetes Brother Hypertension Brother Pancreatic cancer Paternal Grandmother Breast cancer Father's Sister 60 - 69 Breast cancer Cousin Breast cancer Cousin Breast cancer Other Breast Cancer - (Added by TW Conv) Anesthesia problems Neg Hx MEDICATIONS Medication List Accurate as of April 07, 2025 9:25 AM. If you have any questions, ask your nurse or doctor. CHANGE how you take these medications clobetasoL 0.05 % ointment Commonly known as: TEMOVATE Apply nightly to affected area What changed: how much to take how to take this when to take this reasons to take this nitroglycerin 0.4 mg SL tablet Commonly known as: NITROSTAT Place 1 tablet (0.4 mg total) under the tongue every 5 (five) minutes as needed for chest pain Max 3 doses. What changed: additional instructions CONTINUE taking these medications acetaminophen 500 mg tablet Commonly known as: TYLENOL albuterol 90 mcg/actuation inhaler Commonly known as: PROAIR RESPICLICK Align (B.infantis) 4 mg capsule Generic drug: Bifidobacterium infantis ALPRAZolam 0.25 mg tablet Commonly known as: XANAX biotin 5 mg capsule budesonide-formoteroL 160-4.5 mcg/actuation inhaler Commonly known as: SYMBICORT Calci-Mix 500 mg calcium (1,250 mg) capsule Generic drug: calcium carbonate docusate sodium 100 mg capsule Commonly known as: COLACE Entresto 97-103 mg tablet Generic drug: sacubitriL-valsartan Take 1 tablet by mouth twice daily Fish Oil Concentrate 1,000 mg capsule Generic drug: omega-3 fatty acids fluticasone propionate 50 mcg/actuation nasal spray Commonly known as: FLONASE furosemide 20 mg tablet Commonly known as: LASIX Halog 0.1 % cream Generic drug: halcinonide ketotifen fumarate 0.035 % (0.025% of ketotifen) ophthalmic solution Commonly known as: ZADITOR metoprolol XL 100 mg 24 hr tablet Commonly known as: TOPROL-XL Take 1 tablet by mouth once daily ivntkswd-pia-rzlo-FA-vit K-lut 8 mg iron-400 mcg-50 mcg tablet omeprazole 20 mg capsule Commonly known as: PriLOSEC psyllium powder Commonly known as: METAMUCIL sertraline 50 mg tablet Commonly known as: ZOLOFT triamcinolone 0.1 % ointment Commonly known as: KENALOG Vitamin D3 1,000 unit capsule Generic drug: cholecalciferol ALLERGIES Allergies Allergen Reactions Penicillins Swelling, Rash, Other (See comments) and Angioedema Throat swelling Penicillin allergy history completed Chlorhexidine Rash Ketoprofen Rash Other Rash Broke out in a rash after pacemaker insertion procedure 12/25/2023. Unknown the reason- possibly antibiotic Sulfa (Sulfonamide Antibiotics) Rash REVIEW OF SYSTEMS Review of Systems Constitutional: Negative for weight gain and weight loss. HENT: Negative for hearing loss. Eyes: Negative for blurred vision and visual disturbance. Cardiovascular: Negative for chest pain, claudication, dyspnea on exertion, irregular heartbeat, leg swelling, near-syncope, orthopnea, palpitations, paroxysmal nocturnal dyspnea and syncope. Respiratory: Negative for cough, hemoptysis, shortness of breath, snoring, sputum production and wheezing. Endocrine: Negative for cold intolerance, heat intolerance and polyuria. Hematologic/Lymphatic: Does not bruise/bleed easily. Skin: Negative for color change and rash. Musculoskeletal: Negative for falls, joint pain, joint swelling and myalgias. Gastrointestinal: Negative for abdominal pain, heartburn, nausea and vomiting. Genitourinary: Negative for dysuria. Neurological: Negative for dizziness, focal weakness, headaches, light- headedness, numbness and weakness. Psychiatric/Behavioral: Negative for depression. The patient is not nervous/anxious. Allergic/Immunologic: Negative for environmental allergies. All other systems reviewed and are negative. PHYSICAL EXAM Blood pressure 114/62, pulse 73, height 152.4 cm (5'), weight 51.7 kg (114 lb), SpO2 96%. Body mass index is 22.26 kg/m??. Physical Exam Vitals reviewed. Constitutional: Appearance: Normal appearance. HENT: Head: Normocephalic and atraumatic. Nose: Nose normal. Eyes: General: No scleral icterus. Conjunctiva/sclera: Conjunctivae normal. Cardiovascular: Rate and Rhythm: Normal rate and regular rhythm. Pulses: Intact distal pulses. Heart sounds: Normal heart sounds. No murmur heard. No friction rub. No gallop. Pulmonary: Effort: Pulmonary effort is normal. No respiratory distress. Breath sounds: Normal breath sounds. No wheezing or rales. Chest: Chest wall: No tenderness. Abdominal: General: Bowel sounds are normal. There is no distension. Palpations: Abdomen is soft. Tenderness: There is no abdominal tenderness. Musculoskeletal: General: Normal range of motion. Cervical back: Neck supple. Skin: General: Skin is warm and dry. Neurological: Mental Status: She is alert and oriented to person, place, and time. Psychiatric: Mood and Affect: Mood normal. LABS AND OTHER DIAGNOSTIC TESTS Lab Results Component Value Date WBC 8.9 03/01/2024 HGB 13.5 03/01/2024 HCT 42.0 03/01/2024 MCV 88.6 03/01/2024 Chemistry Component Value Date/Time SODIUM 137 03/05/2024 0520 SODIUM 134 (L) 03/01/2024 1020 POTASSIUM 3.9 03/05/2024 0520 POTASSIUM 4.6 03/01/2024 1020 CHLORIDE 103 03/05/2024 0520 CHLORIDE 100 03/01/2024 1020 CO2 32 03/05/2024 0520 CO2 27 03/01/2024 1020 BUNSER 7 03/05/2024 0520 BUNSER 18 03/01/2024 1020 CREATININE 0.57 (L) 03/05/2024 0520 CREATININE 0.69 03/01/2024 1020 GLUCOSE 114 03/05/2024 0520 GLUCOSE 88 03/01/2024 1020 Component Value Date/Time CALCIUM 8.8 03/05/2024 0520 CALCIUM 9.4 03/01/2024 1020 ALKPHOS 69 07/17/2023 0813 AST 14 07/17/2023 0813 ALT 13 07/17/2023 0813 BILITOT 0.4 07/17/2023 0813 No results found for: CHOL No results found for: HDL No results found for: LDL] No results found for: LDLCALC No results found for: TRIG No results found for: CHOLHDL 07/13/2023 Lexiscan stress test: Conclusions: Normal sinus rhythm. Cannot r/o anterior infarct - age uncertain IVCD. Findings are borderline/equivocal for ischemia. Upward tenting of precordial T waves noted following IV lexiscan injection, no ST depression. Left ventricular ejection fraction is 34 %. There is moderate to severe LV dysfunction. Myocardial perfusion imaging is abnormal for a medium sized area of moderate ischemia with infarction involving the anterior and anteroseptum extending to the apex. 07/20/2023 LEFT HEART CATHETERIZATION AND CORONARY ANGIOGRAM REPORT PROCEDURES PERFORMED: Left heart catheterization- selective left and right coronary angiogram, left ventriculogram, LV pressure management and hemodynamic assessment Deployment of Mynx vascular closure device Moderate sedation-CPT code 45616 FINDINGS: LEFT MAIN CORONARY: Large caliber vessel, no angiographically significant focal stenosis. LEFT ANTERIOR DESCENDING ARTERY: Medium to large caliber vessel, mildly tortuous, tapers distally and reaches LV apex. No significant focal stenosis in the LAD or its major diagonal branch. LEFT CIRCUMFLEX ARTERY: Large caliber, tortuous, continues as OM branch without significant focal stenosis. RIGHT CORONARY ARTERY: Large caliber, dominant, tortuous vessel. Gives rise to medium to large caliber PDA and medium caliber PLV branch. No significant focal stenosis seen. LEFT VENTRICULOGRAM: Preserved LV systolic function, ejection fraction about 55%. LVEDP 12 mmHg. HEMODYNAMIC ASSESSMENT: Opening pressure 165/68 mmHg, closing pressure 143/68 mmHg, LVEDP 12 mmHg. No significant gradient across aortic valve on the pull back of pigtail catheter. CONCLUSIONS: No angiographically significant obstructive CAD. Normal LV systolic function, ejection fraction about 55%; LVEDP 12 mmHg. Systemic hypertension Cardiac MRI Morphology and Function with Contrast, w/ Cardiac MRI Flow Quantification DATE OF EXAMINATION: 09/07/2023 8:00 AM Left Ventricular (LV) Size and Function: Mildly decreased function. Dyssynchronous septal contraction. LV functional parameters: LVEF, 34.8%. LV end diastolic volume, 135 mL. LV end systolic volume, 88 mL. Stroke volume, 47 mL. Cardiac output, 3.6 L/min. Cardiac index, 2.4 L/min/meter2 ; BSA 1.49 meter2. Right Ventricular Size and Function: Normal size and function. RV functional parameters: RVEF, 49%. RV end diastolic volume, 77 mL. RV end systolic volume, 40 mL. Stroke volume, 38 mL. Cardiac output, 2.9 L/min. Cardiac index, 1.9 L/min/meter2. Valves: Mitral valve normal. Tricuspid valve normal. Pulmonic valve normal. Aortic valve normal. IMPRESSION: Dyssynchronous septal contraction with reduced left ventricular function (LVEF = 35%), in keeping with known left bundle branch block. No abnormal late gadolinium enhancement to suggest an infiltrative process, scarring or infarct. ECHO 01/09/24 Mild concentric left ventricular hypertrophy. Mild enlargement of left ventricle cavity. Mild global left ventricular systolic dysfunction. Paradoxical septal motion consistent with RV pacemaker. Impaired diastolic relaxation Grade I. Ejection fraction is visually estimated at 45-50 %. Normal right ventricular size. Normal right ventricular systolic function. Linear artifact in right ventricle suggestive of catheter(s), pacemaker lead(s), or ICD lead(s). The left atrium is normal in size. Mild mitral annular calcification. Mild mitral valve regurgitation. Mild pulmonary hypertension based on right ventricular systolic pressure. Estimated peak RVSP is 36 mmHg. Mild tricuspid regurgitation. Mild pulmonic regurgitation. Ventricular paced rhythm. Transthoracic echocardiogram March 2024 EF 45% with 1.4 cm circumferential pericardial effusion ECHO 07/29/2024 Normal left ventricular size. Definity contrast agent [...] Sinus rhythm atrial tracking ventricular paced rhythm. ASSESSMENT Diagnoses and all orders for this visit: Mixed hyperlipidemia (Primary) At goal Primary hypertension At goal HFrEF (heart failure with reduced ejection fraction) (CMS/HCC) ([facility]) - Transthoracic Echo (TTE) Complete W Doppler/CF; Future Mild impairment: Compensated LBBB (left bundle branch block) - Transthoracic Echo (TTE) Complete W Doppler/CF; Future Status post Bi V Presence of biventricular automatic cardioverter/defibrillator (AICD) - Transthoracic Echo (TTE) Complete W Doppler/CF; Future Functioning normally status post revision Dilated cardiomyopathy (CMS/[facility]) ([facility]) EF 45-50% Pericardial effusion - Transthoracic Echo (TTE) Complete W Doppler/CF; Future [id number] pericardial effusion PLAN/RECOMMENDATIONS Because of her hypotension and dizziness, will reduce her Entresto down to 49/51 mg b.i.d.. Ejection fraction is juvc-[id number] impaired. Obviously could add spironolactone or Jardiance/Farxiga but this will also potentially lower her blood pressure which is already a concern. 2D echocardiogram Doppler to evaluate the cardiomyopathy and CHF Follow-up in 6 months or sooner as clinically indicated Reuben Villafana MD, [facility] documented in this encounter Miscellaneous Notes * Addendum Note - Desire Wolfe MA - 04/07/2025 9:15 AM CDTAddended by: DESIRE WOLFE on: 04/07/2025 11:36 AM Modules accepted: Orders documented in this encounter Plan of Treatment Scheduled Orders Name Type Priority Associated Diagnoses Orde r Schedule Transthoracic Echo (TTE) Complete W Doppler/CF Echocardiography Routine Systolic congestive heart failure, unspecified HF chronicity (HCC) HFrEF (heart failure with reduced ejection fraction) ([facility]) LBBB (left bundle branch block) Presence of biventricular automatic cardioverter/defibril lator (AICD) Expected: 04/07/2025, Expires: 04/07/2026 documented as of this encounter Procedures Procedure Name Priority Date/Time Associated Diagnosis Comments POCT LIPID PANEL Routine 04/07/2025 9:16 AM CDT Mixed hyperlipidemia documented in this encounter Results * POCT lipid panel (04/07/2025 9:16 AM CDT) Cholesterol, POC 165 <200 MG/DL HDL, POC 48 >=40 mg/dL Triglycerides, POC 88 <=149 mg/dL LDL Cholesterol POC 100 <=129 mg/dL Chol/HDL Ratio, POC 2.1 NONE Non-HDL Cholesterol, POC 118 NONE mg/dL Cholesterol Total, POC 165 30 - 199 mg/dL Capillary blood 04/07/2025 9 :16 AM CDT Reuben Villafana MD POINT OF CARE TEST ORDERA BLES Final Result documented in this encounter Visit Diagnoses Diagnosis HFrEF (heart failure with reduced ejection fraction) ([facility])- Primary Systolic congestive heart failure, unspecified HF chronicity (HCC) LBBB (left bundle branch block) Other left bundle branch block Presence of biventricular automatic cardioverter/defibrillator (AICD) Primary hypertension Unspecified essential hypertension Mixed hyperlipidemia documented in this encounter Discontinued Medications Medication Sig Discontinue Reason Start Date End Da te sacubitriL-valsartan (Entresto) 97-103 mg tablet Take 1 tablet by mouth twice daily Duplicate order 11/28/2024 04/07/2025 documented as of this encounter Historical Medications * This list may reflect changes made after this encounter. omeprazole (PriLOSEC) 20 mg capsule Take 1 capsule (20 mg total) by mouth daily 03/03/2025 added in this encounter Orders Outpatient Referral Count Last Ordered Date Fir st Ordered Date AMB REFERRAL TO CARDIOLOGY 1 04/07/2025 documented in this encounter Care Teams Squirrel Man Relationship Specialty Start Date End Date Jonathan Camejo DO PCP - General Internal Medicine 01/19/24 documented as of this encounter
--- OUTSIDE RECORDS SUMMARY | 2025-04-08 11:33 | XMS_ITS | Clinical Summary ---
Author Organization [facility] Address [address] [facility] [address] Care Team Providers Care Lgsw Name Role Phone Jonathan Camejo DO Primary Care Provider [phone]- [phone] Allergies Active Allergy Reactions Criticality Noted Date [...] affected area,Indications: eczema, Informant: Self, Reported on 04/07/2025 nitroglycerin (NITROSTAT) 0.[address] 1 tablet (0.4 mg total) under the tongue every 5 (five) minutes as needed for chest pain Max 3 doses. 60 tablet 3 07/14/20 23 Active Additional Information Patient taking differently:0.4 mg sublingual Every 5 min PRN, chest pain,Max 3 doses.Last used March/2024, Indications: acute episode of anginal pain, Informant: Self, Reported on 04/07/2025 cholecalciferol (Vitamin D3) 1,000 unit capsuleIndications :Vitamin [...] tablet total) by mouth every morning Active furosemide (LASIX) 20 mg tabletIndications: Edema Take 1 tablet (20 mg total) by mouth as needed (swelling) 04/19/20 24 Active dzidkjbk-syq-llxo- FA-vit K-lut 8 mg iron-400 mcg-50 mcg tabletIndications: supplement Take 0.5 tablets by mouth 2 (two) times a day Active albuterol (PROAIR RESPICLICK) 90 mcg/actuation inhalerIndications :Bronchospasm [...] water after use. Do not swallow. Active metoprolol XL (TOPROL-XL) 100 mg 24 hr tabletIndications: Dilated cardiomyopathy (HCC) Take 1 tablet by mouth once daily 90 tablet 1 03/03/20 25 Active omeprazole (PriLOSEC) 20 mg capsule Take 1 capsule (20 mg total) by mouth daily 03/03/20 25 Active sacubitriL-valsart an (ENTRESTO) 49-51 mg tabletIndications: chronic heart failure Take 1 tablet by mouth 2 (two) times a day 180 tablet 3 04/07/20 25 026 Active sacubitriL-valsart an (Entresto) 97-103 mg tablet Take 1 tablet by mouth twice daily 60 tablet 8 11/29/19 25 025 Discontin ued(Dupli karin order) Active Problems Problem Noted Date Diagnosed Date Pericardial effusion 06/19/2024 Visit for wound check 03/11/2024 Presence of automatic cardioverter/defibrillator (AICD) 03/04/2024 Presence of biventricular au tomatic cardioverter/defibrillator (AICD) 11/30/2023 Overview (03/05/2024): Pizarro [place] INVESTIGATIVE RESEARCH SPECIALIST-D ICD. Dx; Dilated CM, LBBB, HF w/reduced EF. DOI 12/25/2023-Johnnie. Jeffrey remote. 03/04/2024-Atrial lead explanted, new atrial lead model 8TC/52 reimplanted- Johnnie. Dilated cardiomyopathy 09/27/2023 HFrEF (heart [...] sclerotic cataract of left eye 08/13/2024 10/23/2024 Encounters Date Type Department Care Team Description 04/07/2025 9:15 AM CDT Office Visit [facility] Cardiology [address] [facility] [address] [place] [phone] Reuben Villafana MD HFrEF (heart failure with reduced ejection fraction) (HCC) (Primary Dx); Systolic congestive heart failure, unspecified HF chronicity (HCC); LBBB (left bundle branch block); Presence of biventricular automatic cardioverter/defibrill ator (AICD); Primary hypertension; Mixed hyperlipidemia 02/24/2025 7:00 AM CDT Ancillary Procedure [facility] Cardiology [address] [facility] [address] [place] [phone] LBBB (left bundle branch block); Dilated cardiomyopathy (HCC) from Last 3 Months Surgical History Surgery Date Site/Laterality Comments MS DILATION & CURETTAGE DX&/THER NONOBSTETRIC 09/25/1998 - 09/24/1999 Dilation And Curettage MS OOPHORECTOMY PARTIAL/TOTAL UNI/BI left MS TONSILLECTOMY PRIMARY/SECONDARY <AGE 12 1955 and 1968 MS LIG/TRNSXJ FLP TUBE ABDL/VAG APPR UNI/BI 09/25/1998 [...] on exertion Motion sickness Hypertension GERD (gastroesophageal reflu x disease) Prediabetes Eczema Myopic degeneration Toenail fungus PONV (postoperative nausea a nd vomiting) year ago pt reports no iss ue recently Cardiomyopathy, dilated, non ischemic (HCC) Bundle branch block, left Depression anxiety Arthritis Cataract Presence of biventricular au tomatic cardioverter/defibrillator (AICD) Diaphragm paralysis Shortness of breath Heart disease 07/18 Asthma 09/24/2024 Family History Medical History Relation Name Comments Diabetes Brother Jeremy Lakhani Hypertension Brother Jeremy Lakhani Breast cancer Cousin 1 Breast cancer Cousin 2 Arthritis Father Yrn Lakhani Depression Father Yrn Lakhani Diabetes Father Yrn Lakhani Diabetes type II Father Yrn Lakhani Type 2 Diabetes Mellitus - Uncomplicated, Uncontrolled - (Added by TW Conv) Hearing loss Father Yrn Lakhani Heart disease Father Yrn Lakhani Hypertension Father Yrn Lakhani [...] on file Legal Sex Female 2:59 AM AUDIO VIDEO REPAIRER Gender Identity Female 02/14/2023 2:01 PM CDT Sexual Orientation Straight 02/14/2023 2: 01 PM CDT Obstetrics History Para Term AB IAB SAB Ectopic Multiple Livin g Live Births 0 0 0 0 0 0 0 0 0 0 0 Last Filed Vital Signs Vital Sign Reading Time Taken Comments Blood Pressure 114/62 04/07/2025 9:15 AM CDT Pulse 73 04/07/2025 9:15 AM CDT Temperature 36.3 C (97.3 F) 10/23/2024 9:15 AM AUDIO VIDEO REPAIRER Respiratory Rate 13 10/23/2024 9:30 AM AUDIO VIDEO REPAIRER Oxygen Saturation 96% 04/07/2025 9:15 AM CDT Inhaled Oxygen Concentration - - Weight 51.7 kg (114 lb) 04/07/2025 9:15 AM CDT Height 152.4 cm (5') 04/07/2025 9:15 AM CDT Body Mass Index 22.26 04/07/2025 9:15 AM CDT Plan of Treatment Health Maintenance Due Date Last Done Comments Colon Cancer Screening-Colonoscopy 1950 Depression Screening 1950 Hepatitis C Screening 1950 Hepatitis B Screening 12/08/1967 Well Visit 65+ 2014 Osteoporosis Screening-Bone Density Scan 09/13/2021 09/13/2019, 01/27/2014 Covid-19 Vaccine (2023-2 5 season) 2024 06/07/2024, 07/08/2023, 06/13/2022, Additional history exists Influenza Vaccine (#1) 2025 , 06/17/2023, 07/08/2022, Additional history exists Fall Risk Assessment 10/23/2025 10/23/2024 DTaP/Tdap/Td Vaccine (2 - Td or Tdap) 04/14/2027 04/14/2017 Pneumococcal vaccine 65+ Completed 09/25/2016, 05/27 Zoster Vaccine Completed 04/10/2019, 01/10/2019 Breast Cancer Screening-Mammogram Discontinued 06/04/2024, 04/12/2023, 03/11/2022, Additional history exists Medical Devices Implanted Type Area Building Wrecker Device Identifier Shelf Expiration Date Model / Serial / Lot Pizarro Vascular Defib Cardiac [id number] [place] Hf Df4 Is-4 Is-1 Cnctr [id number] - [id number] - [id number] Implanted:Qty: 1 on 12/25/2023 by Vicne Blair MD at [facility] ICD Left: Infraclavicular Anterior Chest Wall Pizarro Vascular 10/25/2025 CDHFA50 0Q / [id number] / [employer] Durata 6.8fr 58cm 1 Coil True Bipolar Active Fixation Extendable 7122q/58 - [id number] - [id number] Implanted:Qty: 1 on 12/25/2023 by Vince Blair MD at [facility] Lead Right: Ventricle [employer] 07/25/2026 7122Q/5 8 / [id number] / [employer] Quartet 4.7fr 86cm Quadripolar Is-4 Llll Connector 8 Curve Low 1456q/86 - [id number] - [id number] Implanted:Qty: 1 on 12/25/2023 by Vince Blair MD at [facility] Lead N/A: Coronary Sinus [employer] 09/24/2026 1456Q/8 6 / [id number] / [employer] Tendril Sts 6fr 52cm Is-1 Connector Active Fixation Bipolar Soft 2088tc/52 - [id number] - [id number] Implanted:Qty: 1 on 12/25/2023 by Vince Blair MD at [facility] Lead Right: Atrial Appendage [employer] 10/25/2026 2088TC/ 52 / [id number] / [employer] Tendril Sts 6fr 52cm Is-1 Connector Active Fixation Bipolar Soft 2088tc/52 - [id number] - [id number] Implanted:Qty: 1 on 03/04/2024 by Vince Blair MD at [facility] Lead [employer] 01/22/2027 2088TC/ 52 / [id number] / [employer] Lens Iol Tecnis Smplcty 1-Pc Clr [place] 5.5 Diopter [id number] - [id number] - [id number] Implanted:Qty: 1 on 10/09/2024 by Kahlil Tobin MD at [facility] Lens Right: Eye [employer] [employer] [id number] 01/31/2027 [id number] 055 / [id number] / [employer] Sensar Optiedge 6mm 13.5mm Foldable Monofilament Round Anterior [id number] - [id number] - [id number] Implanted:Qty: 1 on 10/23/2024 by Kahlil Tobin MD at [facility] Advanced [facility] Lens Left: Eye [employer] [id number] 05/17/2026 [id number] 040 / [id number] / 0 Access Closure Inc Device 10ml 5fr Closure Mynx Control 2 Mode Balloon Catheter [id number] - [id number] Implanted:Qty: 1 on 07/20/2023 by Herve Do MD at [facility] Access [employer] Inc 08/24/2024 [id number] / / [id number] Med[employer]onic Inc Tyrx Absorbable Antibacterial Envelope-Large 3.3x2.9in [id number] - [id number] Implanted:Qty: 1 on 03/04/2024 by Vince Blair MD at [facility] [employer] 11/30/2024 [id number] / / [id number] Procedures Procedure Name Priority Date/Time Associated Diagnosis Comments POCT LIPID PANEL Routine 04/07/2025 9:16 AM CDT Mixed hyperlipidemia SCREENING MAMMOGRAM BILATERAL W LYLE Schedule Routine, Read Routine (OP Routine) 06/04/2024 9:09 AM CDT Screening mammogram, encounter for DEXA AXIAL SKELETON BONE DENSITY 1 OR MORE SITES Schedule Routine, Read Routine (OP Routine) 09/13/2019 9:23 AM AUDIO VIDEO REPAIRER Asymptomatic menopausal state Health care maintenance from Last 3 Months or Most Recently Relevant to Health Maintenance Results * POCT lipid panel (04/07/2025 9:16 AM CDT) Cholesterol, POC 165 <200 MG/DL HDL, POC 48 >=40 mg/dL Triglycerides, POC 88 <=149 mg/dL LDL Cholesterol POC 100 <=129 mg/dL Chol/HDL Ratio, POC 2.1 NONE Non-HDL Cholesterol, POC 118 NONE mg/dL Cholesterol Total, POC 165 30 - 199 mg/dL Capillary blood 04/07/2025 9 :16 AM CDT us Reuben Villafana MD POINT OF CARE TEST ORDERA BLES Final Result * Screening Mammogram Bilateral W Lyle (06/04/2024 9:09 AM CDT) Anatomical Region Laterality Modality Breast Bilateral Mammography 06/04/2024 10:3 9 AM CDT Impressions 06/04/2024 10:39 AM CDT No evidence of malignancy in either breast. FINAL ASSESSMENT: BI-RADS Category 1: Negative. RECOMMENDATION: Recommend return for annual screening mammogram in 12 months. Electronically signed by: KD SANDERS MD Narrative 06/04/2024 10:39 AM CDT EXAMINATION: BILATERAL SCREENING MAMMOGRAM COMPARISON: All prior mammograms dating back to 2019. TECHNIQUE: Full-field 2D and digital breast tomosynthesis (DBT) images were obtained. CAD was utilized. BREAST PARENCHYMAL COMPOSITION: The breasts are heterogenously dense, which may obscure small masses. FINDINGS: There is no suspicious mass, calcification, or distortion in either breast. us Self Screening Mammogram IMG MAMMO PROCEDURES Fi nal Result * Dexa Axial Skeleton Bone Density 1 or 2 Site (09/13/2019 9:23 AM AUDIO VIDEO REPAIRER) Anatomical Region Laterality Modality Body N/A Radiographic Sonam ging Narrative 09/23/2019 11:43 PM AUDIO VIDEO REPAIRER Patient Name: Celeste Doll Date of : 1950 Date of scan: 09/13/2019 Bone mineral density was performed on a Hologic Discovery Densitometer. Machine Cross-calibration and Precision studies have been performed with a least significant change of 0.024 g/cm at the spine, 0.020 g/cm at the total proximal femur, and 0.014g/cm at the forearm. HISTORY: This is a 68 y.o. postmenopausal female with [...] risk factor for fracture. Other factors include patient s age, previous osteoporotic fracture or prior fracture as an adult, loss of height of greater than 2 inches, corticosteroid use, risk of falling, risk of injury, and family history of osteoporosis. Not everyone with low bone mineral density has osteoporosis. Osteomalacia and other metabolic bone disorders should also be considered where indicated. Patients who have osteoporosis should be evaluated for specific diseases and conditions (secondary causes) that may cause or contribute to bone loss. Consider repeating this study in 1-2 years to assess the patient s response to treatment, if applicable. It is recommended that any follow up exam be performed on the same machine if possible for better accuracy. DEFINITIONS: Osteoporosis: BMD at or below -2.5 T-score Osteopenia (low bone mass): BMD between -1.0 and-2.5 T-score. The Bone Health Program adopts the following WHO definitions: Osteoporosis: BMD below -2.5 S.D. as compared to the BMD of young normal adults. Osteopenia or Low Bone Mass: BMD between -1.0 and -2.5 S.D. below the BMD of young normal adults. Normal Bone Density: BMD equal to or greater than -1.0 S.D. as compared to the BMD of young normal adults. References: 1) Anastacio, Annals of Internal Medicine 114(11): 919-923 (1990) 2) Armas, Lancet 341 : 72-75 [...] by the International Society of Clinical Densitometry. [id number] us Sonia Lissy Lee MD IMG DXA PROCED URES Final Result from Last 3 Months or Most Recently Relevant to Health Maintenance Insurance [employer] [facility] Advance Directives For more information, please contact: [phone] Documents on File Type Date Recorded Patient Crisis Nurse Expl anation ADVANCE DIRECTIVE 12/15/2023 10:35 AM Reed r of Dependency Director-Medical * Full Code (Latest Code Status on File) Date Activated Date Inactivated Comments 10/23/2024 6:29 AM 10/23/2024 1:48 PM * Full Code Date Activated Date Inactivated Comments 10/09/2024 6:33 AM 10/09/2024 1:54 PM * Full Code Date Activated Date Inactivated Comments 03/04/2024 10:18 AM 03/05/2024 5:03 PM * Full Code Date Activated Date Inactivated Comments 12/25/2023 11:33 AM 12/26/2023 3:16 PM Care Teams Lgsw Relationship Specialty Start Date End Date Jonathan Camejo DO PCP - General Internal Medicine 01/19/24
--- OUTSIDE RECORDS SUMMARY | 2025-04-08 11:33 | XMS_ITS | Referral Summary ---
Author Organization [place] [address] [facility] [place] [address] Care Team Providers Care Timekeeper Name Role Phone Jonathan Camejo DO Primary Care Provider +1- [phone] Encounters Date Type Department Care Team Description 04/07/2025 9:15 AM CDT Office Visit [facility] Cardiology [address] [place] [phone] Reuben Villafana MD HFrEF (heart failure with reduced ejection fraction) (HCC) (Primary Dx); Systolic congestive heart failure, unspecified HF chronicity (HCC); LBBB (left bundle branch block); Presence of biventricular automatic cardioverter/defibrill ator (AICD); Primary hypertension; Mixed hyperlipidemia 02/24/2025 7:00 AM CDT Ancillary Procedure [facility] Cardiology [address] [facility] [address], [place] [address] LBBB (left bundle branch block); Dilated cardiomyopathy (HCC) from Last 3 Months Allergies Active Allergy [...] mouth as needed (swelling) 04/19/20 24 Active uorznjnh-rvj-rcjs- FA-vit K-lut 8 mg iron-400 mcg-50 mcg [...] au tomatic cardioverter/defibrillator (AICD) 11/30/2023 Overview (03/05/2024): Relationship Science Addy ENVIRONMENTAL COMPLIANCE ENGINEER-D ICD. Dx; Dilated CM, LBBB, HF w/reduced EF. DOI 12/25/2023-Johnnie. Spelter remote. 03/04/2024-Atrial lead explanted, new atrial lead [...] sclerotic cataract of left eye 08/13/2024 10/23/2024 Social History Tobacco Use Types Packs/Day Years [...] on file Legal Sex Female 2:59 AM DIGITAL ACCOUNT EXECUTIVE Gender Identity Female 02/14/2023 2:01 PM CDT Sexual Orientation Straight 02/14/2023 2: 01 PM CDT Last Filed Vital Signs Vital Sign Reading Time Taken Comments Blood Pressure 114/62 04/07/2025 9:15 AM CDT Pulse 73 04/07/2025 9:15 AM CDT Temperature 36.3 C (97.3 F) 10/23/2024 9:15 AM DIGITAL ACCOUNT EXECUTIVE Respiratory Rate 13 10/23/2024 9:30 AM DIGITAL ACCOUNT EXECUTIVE Oxygen Saturation 96% 04/07/2025 9:15 AM CDT Inhaled Oxygen Concentration - - Weight 51.7 kg (114 lb) 04/07/2025 9:15 AM CDT Height 152.4 cm (5') 04/07/2025 9:15 AM CDT Body Mass Index 22.26 04/07/2025 9:15 AM CDT Plan of Treatment Not on file Medical Devices Implanted Type Area Sewer Line Photo Inspector Device Identifier Shelf Expiration Date Model / Serial / Lot [employer]izarro Vascular Defib Cardiac [id number] 03o02mp Addy Hf Df4 Is-4 Is-1 Cnctr [id number] - [id number] - [id number] Implanted:Qty: 1 on 12/25/2023 by Vince Blair MD at [facility] ICD Left: Infraclavicular Anterior Chest Wall [employer] 10/25/2025 CDHFA50 0Q / [id number] / [employer] Durata 6.8fr 58cm 1 Coil True Bipolar Active Fixation Extendable 7122q/58 - [id number] - [id number] Implanted:Qty: 1 on 12/25/2023 by Vince Blair MD at [facility] Lead Right: Ventricle [employer] 07/25/2026 7122Q/5 8 / [id number] / [employer] Quartet 4.7fr 86cm Quadripolar Is-4 Llll Connector 8 Curve Low 1456q/86 - [id number] - [id number] Implanted:Qty: 1 on 12/25/2023 by Vince Blair MD at [facility] Lead N/A: Coronary Sinus [employer] 09/24/2026 1456Q/8 6 / [id number] / [employer] Tendril Sts 6fr 52cm Is-1 Connector Active Fixation Bipolar Soft 8tc/52 - [id number] - [id number] Implanted:Qty: 1 on 12/25/2023 by Vince Blair MD at [facility] Lead Right: Atrial Appendage [employer] 10/25/2026 2088TC/ 52 / [id number] / [employer] Tendril Sts 6fr 52cm Is-1 Connector Active Fixation Bipolar Soft 8tc/52 - [id number] - [id number] Implanted:Qty: 1 on 03/04/2024 by Vince Blair MD at [facility] Lead [employer] 01/22/2027 2088TC/ 52 / [id number] / [employer] Lens Iol Tecnis Smplcty 1-Pc Clr [place] 5.5 Diopter [id number] - [id number] - [id number] Implanted:Qty: 1 on 10/09/2024 by Kahlil Tobin MD at [facility] Advanced [facility] Lens Right: Eye [employer] [id number] 01/31/2027 [id number] 055 / [id number] / [employer] Sensar Optiedge 6mm 13.5mm Foldable Monofilament Round Anterior [id number] - [id number] - [id number] Implanted:Qty: 1 on 10/23/2024 by Kahlil Tobin MD at [facility] Advanced Medicine Lens Left: Eye [employer] [id number] 05/17/2026 [id number] 040 / [id number] / 0 Access Closure Inc Device 10ml 5fr Closure Mynx Control 2 Mode Balloon Catheter [id number] - [id number] Implanted:Qty: 1 on 07/20/2023 by Herve Do MD at [facility] Access [employer] Inc 08/24/2024 [id number] / / [id number] [employer]onic Inc Tyrx Absorbable Antibacterial Envelope-Large 3.3x2.9in [id number] - [id number] Implanted:Qty: 1 on 03/04/2024 by Vince Blair MD at [facility] [employer] 11/30/2024 [id number] / / [id number] Procedures Procedure Name Priority Date/Time Associated Diagnosis Comments POCT LIPID PANEL Routine 04/07/2025 9:16 AM CDT Mixed hyperlipidemia SCREENING MAMMOGRAM BILATERAL W LYLE Schedule Routine, Read Routine (OP Routine) 06/04/2024 9:09 AM CDT Screening mammogram, encounter for DEXA AXIAL SKELETON BONE DENSITY 1 OR MORE SITES Schedule Routine, Read Routine (OP Routine) 09/13/2019 9:23 AM DIGITAL ACCOUNT EXECUTIVE Asymptomatic menopausal state Health care maintenance from [...] 1 or 2 Site (09/13/2019 9:23 AM DIGITAL ACCOUNT EXECUTIVE) Anatomical Region Laterality Modality Body N/A Radiographic Sonam ging Narrative 09/23/2019 11:43 PM DIGITAL ACCOUNT EXECUTIVE Patient Name: Celeste Doll Date of : 1950 Date of scan: 09/13/2019 Bone mineral density was performed on a [employer] Discovery Densitometer. Machine Cross-calibration and Precision studies [...] of Internal Medicine 114(11): 919-923 (1990) 2) Pawel, Lancet 341 : 72-75 (1992) 3) Joel, Journal Bone and Mineral Research 7(6): 633-8 (1991) 4) Andi, Journal Bone and Mineral Research 8(10):1227-33 (1992) The history and data sections of the bone mineral density scan were prepared by Coleen Thornton(Bipin)(Saniya)(BD), CBDT who is accredited by the International Society of Clinical Densitometry. The overall patient assessment and scan interpretation were performed by Christal Parks MD who is certified by the International Society of Clinical Densitometry. [id number] us Sonia Lee MD IMG DXA PROCED URES Final Result from Last 3 Months or Most Recently Relevant to Health Maintenance Insurance [facility] Member Subscriber Plan / Payer ( fective 2014-Present) Name:Celeste Doll Relation to Subscriber:Self Name:Celeste Doll Payer ID:[id number] (NAIC) Type:MEDICARE RISK OTHER Address: [facility] Christina [facility] [facility] Advance Directives For more information, please contact: [phone] Documents on File Type Date Recorded Patient Organ Installer Expl anation ADVANCE DIRECTIVE 12/15/2023 10:35 AM Reed r of Machine Operator Hay Stacker-Medical * Full Code (Latest Code Status on File) Date Activated Date Inactivated Comments 10/23/2024 6:29 AM 10/23/2024 1:48 PM * Full Code Date Activated Date Inactivated Comments 10/09/2024 6:33 AM 10/09/2024 1:54 PM * Full Code Date Activated Date Inactivated Comments 03/04/2024 10:18 AM 03/05/2024 5:03 PM * Full Code Date Activated Date Inactivated Comments 12/25/2023 11:33 AM 12/26/2023 3:16 PM Care Teams Timekeeper Relationship Specialty Start Date End Date Jonathan Camejo DO PCP - General Internal Medicine 01/19/24
== END 2025-04-08 11:17 | disposition home or self-care (01) ==
PROVIDERS: PCP Internal Medicine; Visit Provider Physician Assistant
DX: R91.8 Other nonspecific abnormal finding of lung field (principal)
CPT/HCPCS: 71250

== ENCOUNTER 2025-08-20 08:46 | Outpatient (CLI) | payer SELFPAY ==
--- OUTSIDE RECORDS SUMMARY | 2021-03-12 04:53 | XMS_ITS | Continuity of Care Document ---
Author Organization [facility] Address [address] [place] [address] Phone Care Team Providers Care Executive Secretary Name Role Phone Clarissa Farley MD Unavailable Unavailable Allergies, Adverse Reactions, Alerts Substance Reaction Status Criticality ketoprofen Skin Active No Information sulfacetamide Other Active No Information penicillin G Other Active No Information Medications Medication Instructions Dosage Effective Dates (start - stop) Status Comments clobetasol 0.05 % topical cream apply by topical route 2 times every day a thin layer to the arms legs - Active fluticasone propionate 50 mcg/actuation nasal spray,suspension spray 1 spray by intranasal route every day in each nostril - Active triamcinolone acetonide 0.1 % topical ointment apply by topical route 2 times every day a thin layer to the arms and legs - Active acyclovir 400 mg tablet take 1 tablet (400MG) by oral route every 8 hours for outbreaks - Active Calci-Mix 500 mg calcium (1,250 mg) capsule 2 daily - Active multivitamin tablet take 1 tablet by oral route every day with food - Active Fish Oil Concentrate 1,000 mg capsule daily - Active duloxetine 60 mg capsule,delayed release take 1 capsule by oral route every day 60 MG - Active ketotifen 0.025 % (0.035 %) eye drops instill 1 drop by ophthalmic route 2 times every day into affected eye(s) 1.00 drop - Active Align 4 mg capsule - Active clonazepam 0.5 mg tablet half at bedtime as needed - Active Procedures Procedure Date FALL RISK ASSESSMENT DOC'D PRES/ABSN URINE INCON ASSESS BASIC METABOLIC PANEL(BMP) HEMOGLOBIN A1C HGA1C, GLYCO ROUTINE VENIPUNCTURE PPPS, subseq visit BODY MASS INDEX DOCD SYST BP LT 130 MM HG DIAST BP 80-89 MM HG FALL PLAN OF CARE DOC'D URINE INCON PLAN DOC'D PRES/ABSN URINE INCON ASSESS PNEUMOVAX ADM MEDICARE PNEUMOVAX IMMUNIZATION BASIC METABOLIC PANEL(BMP) HEMOGLOBIN A1C HGA1C, GLYCO VITAMIN D, 25-HYDROXY ROUTINE VENIPUNCTURE PPPS, initial visit BODY MASS INDEX DOCD SYST BP GE 130 - 139MM HG DIAST BP >= 90 MM HG Advance Directives Directive Yes / No Effective Date File Name No Information Encounters Encounter Description Practice Location Reason(s) For Visit Diagnoses Date Provider Providers Copied on Encounter [facility], [address], [place], [place], [address] , tel: [phone] [facility] No Information 1 Miguelito Romo. [address], [id number]. [phone] [facility], [address], [place], [place], [address] , tel: [phone] [facility] No Information 1 Umair Coronel. [address] [address], [place], [place], [address], [place]. tel:[phone] [facility], [address], [place], [place], [address] , tel: [phone] [facility] No Information May-3 0- 0 Miguelito Romo. [address] [place], [address], [id number]. [phone] [facility], [address], [place], [place], [address] , tel: [phone] [facility] Medicare preventive (chief complaint)C hronic Conditions (chief complaint) Gastro-esophageal reflux disease without esophagitisPrevent [facility] careLichen sclerosusOsteopeni a of hip, unspecified lateralityAnxiety disorder, unspecifiedPre-kevin betesAllergic rhinitis, unspecifiedBody mass index (BMI) 23.0-23.9, adult Sep-2 8-202 0 Miguelito Romo. [address] [place] [address], [facility], [place], [place], [address]. tel:[phone] Referring Provider: Clarissa Gomez, [address] [place] [address], [place], [address] . tel:[phone] [facility], [address], [place], [place], [address] , tel: [phone] [facility] No Information 0 Miguelito Romo. [address] [place] [address], [place], [place], [address]. tel:[phone] [facility], [address], [place], [address] , [place] tel: [phone] [facility] Encounter for screening for osteoporosis 0-201 9 Miguelito Romo. [address] [place] [address], [place], [place], [address]. tel:[phone] [facility], [address], [place], [place], [address] , [place] tel: [phone] [facility] No Information 9 Miguelito Romo. [address] [place] [address] [address], [place], [place], [address]. [phone] [facility], [address], [place], [place], [address] , tel: [phone] [facility] Medicare preventive (chief complaint)C hronic Conditions (chief complaint) Gastro-esophageal reflux disease without esophagitisPre-kevin betesPreventative health careAnxiety disorder, unspecifiedOsteope shannan of hip, unspecified lateralitySerous macular detachment of right eyeLichen sclerosusBody mass index (BMI) 24.0-24.9, adult Sep- 9 Miguelito Romo. [address] [place] [address], [facility], [place], [place], [address]. tel:[phone] Referring Provider: Clarissa Gomez, [address] [place] [address] [address], [place], [address] . tel:[phone] [facility], [address], [place], [place], [address] , tel: [phone] [facility] No Information 9 Miguelito Romo. [address] [place] [address], [address] [address], [place], [place], [address]. [phone] [facility], [address], [place], [place], [address] , tel: [phone] [facility] No Information 9 Miguelito Romo. [address] [place] [address], [place] [address], [place], [place], [address]. tel:[phone] [facility], [address], [place], [place], [address] , tel: [phone] [facility] Preventative health carePre-diabetesAl lergic rhinitis, unspecifiedLichen sclerosusAnxiety disorder, unspecifiedRetina disorder 8 Miguelito Romo. [address] [place] [address], [facility], [place], [place], [address]. tel:[phone] Referring Provider: Clarissa Gomez, [address] [place] [address] [address], [place], [address] . tel:[phone] [facility], [address], [place], [place], [address] , tel: [phone] [facility] No Information 7 Miguelito Romo. [facility], [address], [place], [place], [address]. tel:[phone] [facility], [address], [place], [place], [address] , [place] tel: [phone] [facility] sclerosusGastro-es ophageal reflux disease without esophagitisAllergi c rhinitis, unspecifiedPre-kevin betes 0-201 7 Miguelito Romo. [facility], [address], [place], [place], [address]. [phone] Referring Provider: Clarissa Gomez, [address] [place] [address] [address], [place], [address] . tel:[phone] [facility], [address], [place], [place], [address] , [place] tel: [phone] [facility] No Information 6-201 6 Miguelito Romo. [address] [place] [address], [facility], [place], [place], [address]. [phone] [facility], [address], [place], [place], [address] , [place] tel: [phone] [facility] sclerosusDermatiti s, unspecifiedGastro- esophageal reflux disease without esophagitisAllergi c rhinitis, unspecifiedPre-kevin betes 0 1201 6 Miguelito Romo. [address] [place] [address], [address], [place], [place], [address]. tel:[phone] Referring Provider: Clarissa Gomez, [address] [place] [address] [address], [place], [address] . tel:[phone] [facility], [address], [place], [place], [address] , [place] tel:[phone] [facility] Lichen sclerosus Apr-1 4-201 6 Miguelito Romo. [address] [place] [address], [facility], [place], [place], [address]. tel:[phone] [facility], [address], [place], [place], [address] , [place] tel: [phone] [facility] No Information Jun-0 7-201 5 Miguelito Romo. [facility] [address], [place], [place], [address]. tel:[phone] [facility], [address], [place], [place], [address] , [place] tel: [phone] [facility] No Information May-2 2-201 5 Miguelito Romo. [address] [place] [address], [place], [place], [address]. tel:[phone] [facility], [address], [place], [place], [address] , [place] tel: [phone] [facility] No Information Mar-0 9-201 5 Miguelito Romo. [address] [place] [address], [place], [place], [address]. tel:[phone] [facility], [address], [place], [place], [address] , [place] tel: [phone] [facility] Preventative health careHerpes simplex without mention of complicationANXIET Y STATE NOSDepressionAller gic rhinitis, cause unspecifiedGERDCon tact dermatitis and other eczema, unspecified causeOTHER ABNORMAL GLUCOSE Mike-2 5-201 5 Miguelito Romo. [address] [place] [address], [place], [place], [address]. tel:[phone] Referring Provider: Clarissa Gomez, [address] [place] [address], [place], [address] . tel:[phone] [facility] [address], [place], [address] , [place] tel: [phone] [facility] ANXIETY STATE NOSOTHER ABNORMAL GLUCOSE January-2 7-201 5 Miguelito Romo. [address] [place] [address], [place], [place], [address]. tel:[phone] Referring Provider: Clarissa Gomez, [address] [place] [address] [address], [place], [address] . tel:[phone] [facility], [address], [place], [place], [address] , tel:[phone] [facility] No Information 4 Miguelito Romo. [address] [place] [address], [facility], [place], [place], [address]. tel:[phone] Referring Provider: Clarissa Gomez, [address] [place] [address], [place], [address] . tel:[phone] [facility], [address], [place], [place], [address] , tel:[phone] [facility] Unspecified general medical examinationOTHER ABNORMAL GLUCOSEDepressionG ERDContact dermatitis and other eczema, unspecified cause 4 Miguelito Romo. [address] [place] [address], [facility], [place], [place], [address]. tel:[phone] Referring Provider: Clarissa Gomez, [address] [place] [address], [place], [address] . tel:[phone] [facility] [address], [place], [place], [address] , [place] tel:[phone] [facility] No Information 3 Miguelito Romo. [address] [place] [address], [facility], [place], [place], [address]. tel:[phone] [facility] [address], [place], [place], [address] , [place] tel: [phone] [facility] NEED FOR PROPHYLACTIC VACCINATION AND INOCULATION, INFLUENZA 2-201 3 Miguelito Romo. [address] [place] [address], [facility], [place], [place], [address]. tel:[phone] Referring Provider: Clarissa Gomez, [address] [place] [address], [place], [address] . tel:[phone] [facility] [address], [place], [place], [address] , tel: [phone] [facility] Basal Cell Carcinoma Of Skin, Site UnspecifiedRoutine general medical examination at a [facility] hospitalDepressive disorder, not elsewhere classifiedEsophage al refluxHerpes simplex without mention of complicationOsteoa rthrosis, generalized, involving unspecified sitePre-diabetesRo utine general medical examination at a health care facility 0 5201 3 Miguelito Romo. [address] [place] [address], [place], [place], [address]. tel:[phone] Referring Provider: Clarissa Gomez, [address] [place] [address], [place], [address] . tel:[phone] [facility] [address], [place], [place], [address] , tel: [phone] [facility] Routine general medical [facility] at a [facility]Dep[facility], not elsewhere classifiedEsophage al refluxHerpes simplex without mention of complicationContac t dermatitis and other eczema, unspecified causeRoutine general medical examination at a health care facility 6 2 Miguelito Romo. [address] [place] [address], [place], [place], [address]. tel:[phone] Referring Provider: Clarissa Gomez, [address] [place] [address], [place], [address] . tel:[phone] [facility] [address], [place], [address] , [place] tel: [phone] [facility] Unspecified general medical examination 0 2 Miguelito Romo. [address] [place] [address], [place], [place], [address]. tel:[phone] [facility], [address], [place], [place], [address] , tel: [phone] [facility] Mass, chest 2 Rivas Thmoson. [address] [place] [address], [address] [address], [place], [address]. tel:[phone] [facility], [address], [place], [place], [address] , [place] tel:[phone] [facility] Abdominal pain 2 Rivas Thomson. [address] [place] [address], [place], [address]. tel:[phone] Referring Provider: Clarissa Gomez, [address] [place] [address], [place], [address] . tel:[phone] [facility], [address], [place], [place], [address] , [place] tel:[phone] [facility] NEED FOR PROPHYLACTIC VACCINATION AND INOCULATION, OTHER VIRAL DISEASES 2 Miguelito Romo. [address] [place] [address], [place], [place], [address]. tel:[phone] Referring Provider: Clarissa Gomez, [address] [place] [address], [place], [address] . tel:[phone] [facility], [address], [place], [place], [address] , [place] tel:[phone] [facility] Routine general medical examination at a [facility] care facilityEsophageal refluxHerpes simplex without mention of complicationAllerg ic rhinitis, cause unspecifiedOsteoar throsis, generalized, involving unspecified siteContact dermatitis and other eczema, unspecified causeScreening for diabetes mellitusRoutine general medical examination at a health care facility 1 Miguelito Romo. [address] [place] [address], [place], [place], [address]. tel:[phone] Referring Provider: Clarissa Gomez, [address] [place] [address], [place], [address] . tel:[phone] [facility], [address], [place], [place], [address] , [place] tel:[phone] [facility] ROUTINE MEDICAL EXAMOTHER ATOPIC DERMATITISALLERGIC RHINITIS NOS 3-201 0 Miguelito Romo. [address] [place], [facility], [place], [place], [address]. tel:[phone] [facility], [address], [place], [place], [address] , [place] tel:[phone] [facility] ESOPHAGEAL REFLUXSCREEN LIPOID DISORDERSHERPES SIMPLEX NOS 8-200 9 Miguelito Romo. [address], [facility], [place], [place], [address]. tel:[phone] [facility], [address], [place], [place], [address] , [place] tel: [phone] [facility] SCREEN-DIABETES MELLITUS 6200 8 Miguelito Romo. [address] [place] [address], [address] [address], [place], [place], [address]. tel:[phone] [facility], [address], [place], [place], [address] , [place] tel:[phone] [facility] VACCINATION FOR DTP-DTAP 7 Miguelito Romo. [address] [place] [address], [address] [address], [place], [place], [address]. tel:[phone] [facility], [address], [place], [place], [address] , [place] tel:[phone] [facility] OTHER SBORHEIC KERATOSISDEPRESSIV E DISORDER NEC 200 6 Miguelito Romo. [address], [facility], [place], [place], [address]. tel:[phone] [facility], [address], [place], [place], [address] , [place] tel:[phone] [facility] JOINT PAIN-UNSPEC 6200 5 Miguelito Romo. [facility], [address] [address], [place], [place], [address]. tel:[phone] [facility], [address], [place], [place], [address] , tel: [phone] [facility] No Information 5 Maints Clarissa. [address], [address] [address], [place], [place], [address]. tel: [phone] [facility], [address], [place], [place], [address] , [place] tel:[phone] [facility] SPASM OF MUSCLE 5 Conversion Doctor. [facility], [place], [address], [place]. [facility], [address], [place], [place], [address] , [place] tel: [phone] [facility] CHR ALLRG CONJUNCTIV NECANXIETY STATE NOS 4 Maints Clarissa. [facility] [place], [address] [address], [place], [place], [address]. tel:[phone] [facility], [address], [place], [place], [address] , [place] tel:[phone] [facility] CERVICALGIAEDEMA 4 Conversion Doctor. [facility], [place], [address], [place]. [facility], [address], [place], [place], [address] , [place] tel: [phone] [facility] SCREEN MAL NEOP-RECTUMHEADACH E 3 Miguelito Clarsisa. [address] [place] [address], [place] [address], [place], [place], [address]. tel:[phone] [facility], [address], [place], [place], [address] , [place] tel: [phone] [facility] OSTEOPOROSIS NOSGENERAL OSTEOARTHROSIS 2 Brunts Clarissa. [address] [place] [address], [place] [address], [place], [place], [address]. tel: [phone] [facility], [address], [place], [place], [address] , [place] tel: [phone] [facility] SYMPT STATE W ARTIF ELDON 2 Miguelito Romo. [address], [address], [place], [place], [address]. tel:[phone] [facility], [address], [place], [place], [address] , tel: [phone] [facility] ENDOMETRIOSIS NOS 1 Miguelito Romo. [address], [address], [place], [place], [address]. tel:[phone] Family History Family Member Type Diagnosis Age At Onset Father Problem (finding) raised blood lipids Mother Problem (finding) Eczema Brother Problem (finding) Irritable bowel disease Mother Problem (finding) malignant neoplasm of u rinary bladder Brother Problem (finding) hypertension Father Problem (finding) Irritable bowel disease Mother Problem (finding) raised blood lipids Father Problem (finding) diabetes melli tus in first degree relative Father Problem (finding) migraine Brother Problem (finding) migraine Father Problem (finding) hypertension Mother Problem (finding) Allergies Immunizations Vaccine Date Status Comments Pfizer-BioNTech COVID19 Vaccine, 0.3mL per dose, 2 doses, administered 21 days apart administered Note: [facility] in [place], [place]. ; Source: Other Registry Pfizer-BioNTech COVID19 Vaccine, 0.3mL per dose, 2 doses, administered 21 days apart administered Note: [facility] in [place], [place]. ; Source: Other Registry Fluzone Quad, preservative free, split virus, 0.5mL dosage administered Note: Emiliana guy ; Source: Other Provider Fluzone High-Dose, high dose , preservative free administered Note: Irwin Hodge ce: Other Provider Pneumococcal polysaccharide PPV23 administered Source: New Immuniza tion Record SHINGRIX (Zoster vaccine recombinant, adjuvanted) administered Note: [facility] ; Source: Other Provider SHINGRIX (Zoster vaccine recombinant, adjuvanted) administered Note: [facility] ; Source: Other Registry Flublok, quadrivalent, preservative free, 0.5mL dosage administered Source: New Immunization Record Fluzone High-Dose , high dose, preservative free administered Note: Fe rt ; Source: Other Provider Tdap administered Source: Other R egistry Pneumococcal conjugate PCV 13 administere d Source: Other Provider Influenza, high dose seasonal administere d Note: [facility] ; Source: Other Provider Influenza, high dose seasonal administere d Note: [facility] ; Source: Other Provider Pneumococcal conjugate PCV 13 administere d Note: [facility] ; Source: Other Provider Pneumococcal conjugate PCV 13 administere d Note: [facility] ; Source: Other Provider Influenza, seasonal, injecta ble (3 yrs or older) administered Source: New Immuniza tion Record Flu (split) (3 yrs or older) administered Source: New Immunization Record Zoster administered Source: New Imm unization Record Zoster administered Source: New Imm unization Record 68301 - Tetanus_Diptheria_Pertussis_Tda p administered Source: Source Unspe cified hep A (adult) administered Source: Source Unspecified 02490 - Hepatitis_A administered Source: Source Unspecified hep B (adult) administered Source: Source Unspecified hep B (adult) administered Source: Source Unspecified 45824 - Hepatitis_B administered Source: Source Unspecified 73260 - TD administered Source: Source Unspecified Payers Payer name Insurance type Covered republican ID Authoriza tion(s) [facility] [place] [id number] [facility] [place] [id number] [facility] [place] [id number] [employer] ACCESS I II III CI [id number] Social History Type Description Quantity Date Captured Comments Alcohol Use Details Unknown Caffeine Use Details Unknown Tobacco Use Status No Information Smoking Status No Information Sex Female Sexual Orientation Straight or heterosexual Gender Identity Female Chief Complaint And Reason For Visit No Information Reason For Referral Reason For Referral No Information Plan Of Treatment Date Type Action Status Goal PAP. Due on due Goal Zoster vaccine (1st) due Goal Influenza vaccine. Due on due Goal Mammogram. Due on due Goal Colonoscopy. Due on due Goal Diabetes Screening. Due on due Goal Zoster vaccine (2nd) due Goal Cognitive assessment. Due on due Goal Td vaccine. Due on due Goal DEXA Scan due Goal Depression screening. Due on due Goal Lipid Panel. Due on due Goal Sigmoidoscopy. Due on due Goal Td vaccine. Due on due Goal Lipid Panel. Due on due Goal PAP. Due on due Goal Depression screening. Due on due Goal Diabetes Screening. Due on due Goal Zoster vaccine (2nd) due Goal FOBT. Due on due Goal Colonoscopy. Due on due Goal Influenza vaccine. Due on due Goal DEXA Scan due Goal Cognitive assessment. Due on due Goal Mammogram. Due on due Goal Zoster vaccine (1st) due Goal Diabetes Screening. Due on due Goal FOBT. Due on due Goal Depression screening. Due on due Goal PAP. Due on due Goal Lipid Panel. Due on 108 due Goal Zoster vaccine (2nd) due Goal Sigmoidoscopy. Due on due Goal Colonoscopy. Due on 026 due Goal Mammogram. Due on 1 due Goal DEXA Scan due Goal Zoster vaccine (1st) due Goal Influenza vaccine. Due on due Goal Td vaccine. Due on due Goal Cognitive assessment. Due on due Goal Dietary management education , guidance, and counseling completed Goal Influenza vaccine. Due on due Goal Mammogram. Due on 0 due Goal Depression screening. Due on due Goal Zoster vaccine (2nd) due Goal Lipid Panel. Due on due Goal Diabetes Screening. Due on due Goal Sigmoidoscopy. Due on due Goal Zoster vaccine (1st) due Goal Td vaccine. Due on due Goal PAP. Due on due Goal Colonoscopy. Due on due Goal FOBT. Due on due Goal Cognitive assessment. Due on due Goal Zoster vaccine (1st) due Goal Td vaccine. Due on due Goal Sigmoidoscopy. Due on due Goal FOBT. Due on due Goal Influenza vaccine. Due on due Goal Depression screening. Due on due Goal Mammogram. Due on 0 due Goal Diabetes Screening. Due on due Goal Cognitive assessment. Due on due Goal Lipid Panel. Due on 108 due Goal Colonoscopy. Due on 026 due Goal Zoster vaccine (2nd) due Goal PAP. Due on due Goal Dietary management education , guidance, and counseling completed Referral Referred To: [id number] Ordered: DEXA of spine and hip ordered Referral Referred To: Cl Medina MD [address] [facility]
[address] [place], [address] [phone] Ordered: Referrals: Ophthalmology. Cl Medina MD. Evaluation/diagnostic/treatment - Level 3 ordered Referral Referred To: Vanessa Hodges MD [id number] [facility]
[address] [place], [address] [phone] Ordered: Referrals: Pawn Broker. Vanessa Hodges MD. Evaluation/diagnostic/treatment - Level 3 Appointment date/timeframe: 09/16/2019 ordered History Of Present Illness Encounter Date Complaint History Of Prese nt Illness Medicare preventive Chronic Conditions *See Chronic Conditions HPI Medicare preventive Functional S tatus: (Functional status has not changed) on 06/17/2019. Cognitive Status: (Cognitive status has not changed) on 06/17/2019. Patient denies recent weight gain. Patient denies recent weight loss. Relevant history is negative for tobacco use and alcohol use. Chronic Conditions *See Chronic Conditions HPI Functional Status Date Functional Assessmen t No Information Instructions Date Instruction Additional Infor mation Continue calcium, to pily 1000 mg daily. Dairy products is certainly included. Related to Osteopenia of hip, unspecified laterality Continue treatment a nd follow-up with SPECIALIST. Referral may be necessary based on insurance plan. Related to Anxiety disorder, unspecified Today, you need to g et a lab test.We will send you a letter or call you with your test results. If you do not hear from us, call us at [phone]. Related to Pre-diabetes Please continue the SAME MEDICATIONS as listed on your patient plan. Today, you need to get a lab test.We will send you a letter or call you with your test results. If you do not hear from us, call us at [phone].BMP, Hemoglobin [id number] with a physical in one year. Related to Allergic rhinitis, unspecified Please continue to s kory the dulser. Related to Lichen sclerosus I'm glad you have sprague d your flu vaccine this fall.Your preventive testing is up-to-date. Related to Preventative health care Reflux plan: Do not eat foods that make heartburn, or reflux, worse. Do not eat fatty foods, spicy foods or carbonated drinks. Avoid tobacco. Limit alcohol. Do not eat for 3 hours before lying down. Sometimes it helps to raise the head of your bed. Related to Gastro-esophageal reflux disease without esophagitis Dietary management e ducation, guidance, and counseling Related to Body mass index (BMI) 23.0-23.9, adult check lab Related to Pre-d iabetes meds same Related to Anxie ty disorder, unspecified Continue treament an d follow up with specialist. Referral may be necessary based on insurance plan. Related to Serous macular detachment of right eye UP to date on routin e testing,.flu vaccine Related to Preventative health care check bone density Related to Os teopenia of hip, unspecified laterality Patient advised to a void foods that aggravate reflux such as fatty foods, spice foods and carbination. Do not eat for 3 hours before lying down. Elevate head of bed if necessary. Related to Gastro-esophageal reflux disease without esophagitis see long term routinely Ph ysical one year.Today, you need to get a lab test.We will send you a letter or call you with your test results. If you do not hear from us, call us at [phone].BMP, Hemoglobin A1c, vitamin D levelBefore your next visit, you need to get a lab test. 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 If you do not hear from us, call us at [phone].LAB NEEDED:BMP, Hemoglobin A1c, vitamin D level Related to Lichen sclerosus Dietary management e ducation, guidance, and counseling Related to Body mass index (BMI) 24.0-24.9, adult Assessments Type Assessment Date No Information Patient Care Teams Name Effective Dates (start - stop) Status Members No Information
--- NOTE | ~2025-08-20 | US_ITS ---
US arterial ankle brachial ind INDICATION: Right lower leg pain TECHNIQUE: Segmental pressures and plethysmographic and Doppler waveforms of the brachial and lower extremity arteries were obtained. COMPARISON: None. FINDINGS: Right and left brachial artery pressures of 121 mm Hg and 125 mm Hg, respectively, are concordant (normal difference <= 30 mmHg). The right ankle-brachial index (CODY) is 1.26 (normal >= 0.9-1.0). The right great toe-brachial index (TBI) is 0.83 (normal >= 0.60). The left CODY is 1.3. The left TBI is 0.59. IMPRESSION: 1. Normal ankle-brachial indices. Reviewed, dictated and finalized at location O. FOOD WORKER
--- OUTSIDE RECORDS SUMMARY | 2025-08-20 09:32 | XMS_ITS | Clinical Summary ---
Author Organization [facility] Address [address] [place] [address] Care Team Providers Care Diffuser Operator Name Role Phone Unavailable Primary Care Provider [...] of 2) 12/08/1999 Dexa Scan (General) 2014 RSV Immunization or 60+ Years (1 - 1-dose 75+ series) 2024 COVID-19 Vaccine ( - 2024-2 6 season) 2025 Influenza Adult (#1) 2025 Hepatitis A Vaccines Aged Out No long er eligible based on patient's age to complete this topic Meningococcal B Vaccine Aged Out No l onger eligible based on patient's age to complete this topic Meningococcal Vaccine Aged Out No [place] narinder eligible based on patient's age to complete this topic RSV Immunizations Under 20 Months Aged Out No longer eligible based on patient's age to complete this topic
--- OUTSIDE RECORDS SUMMARY | 2025-08-20 09:32 | XMS_ITS ---
Author Organization [facility] Address [address] [facility] [place] [address] Care Team Providers Care Director Audience Marketing Name Role Phone Jontahan Camejo DO Primary Care Provider +1- [phone] Active Problems Problem Noted Date Diagnosed Date Pericardial effusion 06/19/2024 Visit for wound check 03/11/2024 Presence of automatic cardioverter/defibrillator (AICD) 03/04/2024 Presence of biventricular au tomatic cardioverter/defibrillator (AICD) 11/30/2023 Overview (03/05/2024): Juarez Martin PACKER INSPECTOR-D ICD. Dx; Dilated CM, LBBB, HF w/reduced [...] Lifetime Dose Automatic Entry Manual Entr y Fluoro Time 45.7 minutes 0 minutes 45.7 minutes Air kerma at the reference point (Ka,r) 223 mGy 0 mGy 223 mGy DAP 569.05 Gy-cm2 0 Gy-cm2 569.05 Gy-cm2 Resolved Problems Problem Noted Date Diagnosed Date Resolved Date Nuclear sclerotic cataract of right eye 08/13/2024 10/09/2024 Nuclear sclerotic cataract of left eye 08/13/2024 10/23/2024
--- OUTSIDE RECORDS SUMMARY | 2025-08-20 09:32 | XMS_ITS | Clinical Summary ---
Author Organization [facility] Address [address] [facility] [place] [address] Care Team Providers Care Referral Rn Name Role Phone Jonathan Camejo DO Primary Care Provider +1- [phone] Allergies Active Allergy Reactions Criticality Noted Date [...] mouth as needed (swelling) 04/19/20 24 Active leeyyffx-iqy-ffwd- FA-vit K-lut 8 mg iron-400 mcg-50 mcg [...] 180 tablet 3 04/07/20 25 026 Active Active Problems Problem Noted Date Diagnosed Date Pericardial effusion 06/19/2024 Visit for wound check 03/11/2024 Presence of automatic cardioverter/defibrillator (AICD) 03/04/2024 Presence of biventricular au tomatic cardioverter/defibrillator (AICD) 11/30/2023 Overview (03/05/2024): Juarez Martin 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 Dx; Dilated CM, LBBB, HF w/reduced [...] Encounters Date Type Department Care Team Description 06/16/2025 8:23 AM CDT - 06/16/2025 11:59 PM CDT Hospital Encounter [address] [address] Screening mammogram, encounter for Discharge Disposition: Discharge to home or self care 05/27/2025 7:45 AM CDT Ancillary Procedure [facility] [address] [place] [id number] Presence of biventricular automatic cardioverter/defibrilla tor (AICD) (Primary Dx); LBBB (left bundle branch block); Dilated cardiomyopathy (HCC); Paroxysmal atrial fibrillation (HCC); HFrEF (heart failure with reduced ejection fraction) from Last 3 Months Surgical History Surgery [...] on file Legal Sex Female 2:59 AM DAG COATER Gender Identity Female 02/14/2023 2:01 PM CDT [...] 36.3 C (97.3 F) 10/23/2024 9:15 AM DAG COATER Respiratory Rate 13 10/23/2024 9:30 AM DAG COATER Oxygen Saturation 96% 04/07/2025 9:15 AM CDT [...] Density Scan 09/13/2021 09/13/2019, 01/27/2014 Covid-19 Vaccine (2024-2 6 season) 2025 06/07/2024, 07/08/2023, 07/08/2023, Additional history exists Influenza Vaccine (#1) 2025 , 06/17/2023, 07/08/2022, Additional history exists Fall Risk Assessment 10/23/2025 10/23/2024 DTaP/Tdap/Td Vaccine (2 - Td or Tdap) 04/14/2027 04/14/2017 Pneumococcal vaccine 65+ Completed 09/25/2016, 05/27 Zoster Vaccine Completed 04/10/2019, 01/10/2019 Breast Cancer Screening-Mammogram Discontinued 06/16/2025, 06/04/2024, 04/12/2023, Additional history exists Medical Devices Implanted Type Area Assistant Principal Device Identifier Shelf Expiration Date Model / Serial / Lot Pizarro Vascular Defib Cardiac [id number] [place] Hf Df4 Is-4 Is-1 Cnctr [id number] - [id number] - [id number] Implanted:Qty: 1 on 12/25/2023 by Vince Blair MD at [facility] ICD Left: Infraclavicular Anterior Chest Wall [employer] 10/25/2025 [id number] / [id number] / [employer] Durata 6.8fr 58cm 1 Coil True Bipolar Active Fixation Extendable 7122q/58 - [id number] - [id number] Implanted:Qty: 1 on 12/25/2023 by Vince Blair MD at [facility] Lead Right: Ventricle [employer] 07/25/2026 7122Q/5 8 / [id number] / [employer] Quartet 4.7fr 86cm Quadripolar Is-4 Llll Connector 8 Curve Low 1456q/86 - [id number] - [id number] Implanted:Qty: 1 on 12/25/2023 by Vince Blair MD at [facility] Lead N/A: Coronary Sinus [employer] 09/24/2026 1456Q/8 6 / [id number] / [employer] Tendril Sts 6fr 52cm Is-1 Connector Active Fixation Bipolar Soft 8tc/52 - [id number] - [id number] Implanted:Qty: 1 on 12/25/2023 by Vince Blair MD at [facility] Lead Right: Atrial Appendage [employer] 10/25/2026 2088TC/ 52 / [id number] / [employer] Tendril Sts 6fr 52cm Is-1 Connector Active Fixation Bipolar Soft 8tc/52 - [id number] - [id number] Implanted:Qty: 1 on 03/04/2024 by Vince Blair MD at [facility] Lead [employer] 01/22/2027 2088TC/ 52 / [id number] / [employer] Lens Iol Tecnis Smplcty 1-Pc Clr Andrew 5.5 Diopter [id number] - [id number] - [id number] Implanted:Qty: 1 on 10/09/2024 by Kahlil Tobin MD at [facility] Advanced [employer] Lens Right: Eye [employer] [id number] 01/31/2027 [id number] [id number] / [id number] / [employer] Sensar Optiedge 6mm 13.5mm Foldable Monofilament Round Anterior [id number] - [id number] - [id number] Implanted:Qty: 1 on 10/23/2024 by Kahlil Tobin MD at [facility] Advanced [facility] Lens Left: Eye [employer] [id number] 05/17/2026 [id number] 040 / [id number] / [id number] Access [employer]osure Inc Device 10ml 5fr Closure Mynx Control 2 Mode Balloon Catheter [id number] - [id number] Implanted:Qty: 1 on 07/20/2023 by Herve Do MD at [facility] Access [employer] 08/24/2024 [id number] / / [id number] [employer] Inc Tyrx Absorbable Antibacterial Envelope-Large 3.3x2.9in [id number] - [id number] Implanted:Qty: 1 on 03/04/2024 by Vince Blair MD at [facility] [employer] 11/30/2024 [id number] / / [id number] Procedures Procedure Name Priority Date/Time Associated Diagnosis Comments SCREENING MAMMOGRAM BILATERAL W LYLE Schedule Routine, Read Routine (OP Routine) 06/16/2025 9:08 AM CDT Screening mammogram, encounter for DEVICE CHECK - REMOTE Routine 05/27/2025 10:52 AM CDT LBBB (left bundle branch block) Dilated cardiomyopathy (HCC) Paroxysmal atrial fibrillation (HCC) DEXA AXIAL SKELETON BONE DENSITY 1 OR MORE SITES Schedule Routine, Read Routine (OP Routine) 09/13/2019 9:23 AM DAG COATER Asymptomatic menopausal state Health care maintenance from Last 3 Months or Most Recently Relevant to Health Maintenance Results * Screening Mammogram Bilateral W Lyle (06/16/2025 9:08 AM CDT) Anatomical Region Laterality Modality Breast Bilateral Mammography Impressions 06/16/2025 10:25 AM CDT Bilateral No evidence of malignancy in either breast. OVERALL BI-RADS FINAL ASSESSMENT: 1 - Negative RECOMMENDATION: Recommend bilateral annual screening mammography. Narrative 06/16/2025 10:25 AM CDT EXAMINATION: Screening Mammogram Bilateral W Lyle: 06/16/2025 COMPARISON: Relevant prior studies available at the time of interpretation were reviewed, including the most recent mammogram on: 06/04/2024. TECHNIQUE: Mammography was performed with 2D and 3D digital breast tomosynthesis (DBT) images. CAD was utilized. BREAST PARENCHYMAL COMPOSITION: The breasts are heterogeneously dense, which may obscure small masses. FINDINGS: Bilateral There is no suspicious mass, calcification, or architectural distortion in either breast.There is a pacemaker which projects in the left axilla. us Self Screening Mammogram IMG MAMMO PROCEDURES Fi nal Result * DEVICE CHECK - REMOTE (05/27/2025 10:52 AM CDT) Anatomical Region Laterality Modality Other Narrative 05/29/2025 1:32 PM CDT Pizarro [place] 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 Dx; Dilated CM, LBBB, HF w/reduced EF. DOI 12/25/2023-Johnnie. [place] remote. Routine DDD ICD Remote. Transmission attached. Battery status 78%, 5.1-5.5 years remaining battery life to MALISSA. Stable Charge time and Shock impedance. Stable lead impedances, pacing, and sensing threshold. Presenting rhythm: /BP AP-8.6 %, Bi-V P-97 %. (0) AT/AF episodes noted. (0) Ventricular tachy arrhythmias detected. Medication: Toprol-XL, Entresto 49-51 mg Follow up: Office Pacemaker/ICD scheduled 02/18/26 Jeffrey remote 08/26/25 Dwight Barnes RN Reuben Villafana MD [facility] Final Result * Dexa Axial Skeleton Bone Density 1 or 2 Site (09/13/2019 9:23 AM DAG COATER) Anatomical Region Laterality Modality Body N/A Radiographic Sonam ging Narrative 09/23/2019 11:43 PM DAG COATER Patient Name: Celeste Doll Date of : 1950 Date of scan: 09/13/2019 Bone mineral density was performed on a HoloZipit Wireless Discovery Densitometer. Machine Cross-calibration and Precision studies [...] 1) Anastacio Annals of Internal Medicine 114(11): 919-923 (1990) [...] by the International Society of Clinical Densitometry. 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
--- OUTSIDE RECORDS SUMMARY | 2025-08-20 09:33 | XMS_ITS | Encounter Summary ---
Author Organization [facility] Healthcare Address [address] [place] [address] Care Team Providers Care Fire Sprinkler Fitter Name Role Phone Jonathan Camejo DO Primary Care Provider +1- [phone] Encounter Details Date Type Department Care Team (Late st Contact Info) Description 02/18/2025 Orders Only [facility] Health Information Management [address] [place] [id number] Scanning, Provider Social History Tobacco Use Types Packs/Day Years Used Date Smoking Tobacco: Never Passive Smoke Exposure: Past Smokeless Tobacco: Never Alcohol Use Standard Drinks/Week Comments No 0 [...] on file 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 Gender Identity Female 02/14/2023 2:01 PM CDT Sexual Orientation Straight 02/14/2023 2: 01 PM CDT documented as of this encounter Plan of Treatment Not on file documented as of this encounter Procedures Procedure Name Priority Date/Time Associated Diagnosis Comments SCAN - RADIOLOGY/IMAGING 02/18/2025 documented in this encounter Results * SCAN - RADIOLOGY/IMAGING (02/18/2025) Anatomical Region Laterality Modality Other us Provider Scanning Final Result documented in this encounter Visit Diagnoses Not on filedocumented in this encounter Care Teams Fire Sprinkler Fitter Relationship Specialty Start Date End Date Jonathan Camejo DO PCP - General Internal Medicine 01/19/24 documented as of this encounter
--- OUTSIDE RECORDS SUMMARY | 2025-08-20 09:33 | XMS_ITS | Patient Health Record ---
Author Organization [facility] [employer] [facility] Address [address] [facility] [address] [place] [address] Care Team Providers Care In Store Banker Name Role Phone Jonathan Camejo DO Primary Care Provider Stefano Taylor Unavailable [phone] Allergies Allergen (clinical drug ingredient) Drug/Non Drug [...] date:11/14/2024 01:03:41 PM Interpretation: Performing Lab: Notes/Report: Amphetamine (AMP) NEG 0 - 1000 ng/ml Buprenorphine (BUP) NEG 0 - 10 ng/ml Oxazepam (BZO) NEG 0 - 300 ng/ml Cocaine (ELENA) NEG 0 - 300 ng/ml Methamphetamine (mAMP) NEG 0 - 300 ng/ml Methylenedioxymethamphetamine (MDMA) NEG 0 - 500 ng/ml Morphine (MOP) NEG 0 - 25 ng/ml Methadone (MTD) NEG 0 - 300 ng/ml Oxycodone (OXY) NEG 0 - 300 ng/ml THC NEG 0 - 50 ng/ml x NEG 0 - 1000 ng/ml x NEG 0 - 1000 ng/ml x NEG 0 - 300 ng/ml x NEG 0 - 300 ng/ml x NEG 0 - 300 ng/ml Reason For Referral No Information Medications Medication SIG (Take, Route, Frequency, Duration) Notes Start Date End Date Status ALPRAZolam 0.25 MG Tablet 1 tablet Oral once a day; Duration: 30 days Active Furosemide 20 MG Tablet TAKE 1 TABLET BY MOUTH ONCE DAILY Oral; Duration: 30 Days Active Sertraline HCl 50 MG Tablet 1.5 tablet Oral Once a day; Duration: 90 days Active ProAir RespiClick 108 (90 Base) MCG/ACT Aerosol Powder Breath Activated Inhalation; Duration: 17 Days Active Entresto 97-103 MG Tablet TAKE 1 TABLET BY MOUTH TWICE DAILY Oral; Duration: 30 Days Active Metoprolol Succinate ER 100 MG Tablet Extended Release 24 Hour 1 tablet Orally Once a day; Duration: 90 days Active Omeprazole 20 MG Capsule Delayed Release Oral; Duration: 90 Days A ctive Metoprolol Succinate ER 50 MG Tablet Extended Release 24 Hour TAKE 1 & 1/2 (ONE & ONE-HALF) TABLETS BY MOUTH ONCE DAILY Oral; Duration: 90 Days Active Immunizations Vaccine Route Administration Date Status [...] History Observation Description Sex Assigned At Female Social History Miscellaneous: Social Info Question Answer Notes Advance Care Planning Are you your own decision-maker Yes Do you have Power of Attorne y for Health or Medical? Yes Advance Directive FULL CODE,Durable Po wer of Bioinformatics Associate for Healthcare Do you have a power of claims attorney for health? Yes Do you have power of claims attorney for Medical ? Yes Drug/Alcohol: Social Info Question Answer Notes AUDIT-C (Standard) Did you have a drink containing alcohol in the past year? No Tobacco Use: Social Info Question Answer Notes Tobacco Control (Standard) Tobacco use: Nonsmoker Problems Problem Type SNOMED Code ICD Code Onset Dates Problem Status W/U Status Risk Notes Problem Recurrent major depression (09903306) Major depressive disorder, recurrent, in remission, unspecified (F33.40) 01/22/20 24 Active confirmed Problem Generalized anxiety disorder (70713891) Generalized anxiety disorder (F41.1) 01/22/20 24 Active confirmed Problem Insomnia (388925185) Insomnia, unspecified (G47.00) Active confirmed Problem Essential hypertension (52476987) Essential (primary) hypertension (I10) Active confirmed Problem Heart failure (29526585) Heart failure, unspecified (I50.9) Active confirmed Problem Moderate recurrent major depression (26139987) Moderate recurrent major depression (F33.1) Active confirmed Problem Left bundle branch block (62013417) LBBB (left bundle branch block) (I44.7) 07/14/20 23 Active confirmed Problem Systolic heart failure (192501529) HFrEF (heart failure with reduced ejection fraction) (CMS/HCC) (I50.20) 09/27/19 24 Active confirmed Problem Automatic implantable cardiac defibrillator in situ (204575727) Presence of biventricular automatic cardioverter/defi brillator (AICD) (Z95.810) 03/05/20 24 Active confirmed Problem Dilated cardiomyopathy (553573960) Dilated cardiomyopathy (CMS/HCC) (I42.0) 12/25/19 24 Active confirmed Problem Mild cognitive disorder (752307172) MCI (mild cognitive impairment) (G31.84) Active confirmed Vital Signs Heart Rate 72 /min 12/12/2024 Height-cm 152.40 cm 05/02/2025 Blood pressure diastolic 72 mm Hg 12/12/2024 Weight-kg 50.8 kg 12/12/2024 Height 60.00 in 05/02/2025 Blood pressure systolic 126 mm Hg 12/12/2024 Weight 112.0 lbs 12/12/2024 BMI 21.87 kg/m2 12/12/2024 Encounters Encounter Location Date Provider Diagnosis [facility] [employer] [place] [address] [facility] [address] [address] 09/13/2024 Stefano Oswald Generalized anxiety disorder F41.1 ; Moderate recurrent major depression F33.1 ; Dilated cardiomyopathy (CMS/HCC) I42.0 ; Presence of biventricular automatic cardioverter/defibrillat or (AICD) Z95.810 ; HFrEF (heart failure with reduced ejection fraction) (CMS/HCC) I50.20 ; LBBB (left bundle branch block) I44.7 and MCI (mild cognitive impairment) G31.84 [facility] [employer] [address] [address] 11/14/2024 Stefano Oswald MCI (mild cognitive impairment) G31.84 [facility] [employer] [place] [address] [address] [address] 12/12/2024 Stefano Oswald Encounter for screen ing for cardiovascular disorders Z13.6 ; Encounter for screening for depression Z13.31 ; Generalized anxiety disorder F41.1 ; Moderate recurrent major depression F33.1 ; Dilated cardiomyopathy (CMS/HCC) I42.0 ; Presence of biventricular automatic cardioverter/defibrillat or (AICD) Z95.810 ; HFrEF (heart failure with reduced ejection fraction) (CMS/HCC) I50.20 ; LBBB (left bundle branch block) I44.7 and MCI (mild cognitive impairment) G31.84 [employer] [place] [id number] [address] 05/02/2025 Stefanodavid Oswald Generalized anxiety disorder F41.1 ; Moderate recurrent major depression F33.1 ; Insomnia, unspecified G47.00 ; Major depressive disorder, recurrent, in remission, unspecified F33.40 ; Essential (primary) hypertension I10 and Heart failure, unspecified I50.9 Assessments Encounter Date Diagnosis (ICD Code) Assessment Notes Treatment Notes Treatment Clinical Notes Section Notes 09/13/2024 Generalized anxiety disorder (ICD-10 - F41.1) [...] Screening Scores Assessment Score Interpretation SLUMS ([facility] Mental Status Examination) 28 Normal cognition [...] challenge cognitive flexibility. 3. Executive Function and Problem-Solving Activities Number Ladder and Sudoku: Improves logical [...] time and cognitive processing. 5. Social and Lifestyle-Based Cognitive Stimulation Learning a New Skill: Take up painting, music, or a new language to create new neural connections. Group Discussions and Debates: Engages memory, processing, and reasoning abilities. Physical Activities with Coordination such as Tyler Chi, Dance, or Yoga: Improves brain-body connections and cognitive flexibility. 05/02/2025 Generalized anxiety disorder (ICD-10 - F41.1) Anxiety is stable per patient report. Sertraline is helping with anxiety. No current symptoms reported. - Continue Sertraline as above. - Continue Xanax PRN as needed for anxiety. 05/02/2025 Insomnia, unspecified (ICD-10 - G47.00) Difficulty falling asleep and fragmented sleep reported by patient. Symptoms include waking up at 2-3 AM and taking over an hour to return to sleep. Patient avoids caffeine and limits naps to improve sleep quality. - Provided sleep hygiene counseling, including limiting naps to 30-45 minutes and avoiding caffeine. - Recommended setting an alarm for short naps before 3 PM. 12/12/2024 Encounter for screening for depression (ICD-10 [...] Moderate recurrent major depression (ICD-10 - F33.1) 05/02/2025 Moderate recurrent major depression (ICD-10 - F33.1) Depression is stable per patient report. Sertraline is providing ongoing benefit. No current symptoms reported. - Continue Sertraline 50 mg, 1.5 tablets daily. 09/13/2024 Dilated cardiomyopathy (CMS/HCC) (ICD-10 - I42.0) [...] is recommended to monitor potential cognitive changes. 05/02/2025 Major depressive disorder, recurrent, in remission, unspecified (ICD-10 - F33.40) 05/02/2025 Essential (primary) hypertension (ICD-10 - I10) Blood pressure readings at home are around 100/60s-70s. Patient monitors blood pressure daily. Condition is stable. - Continue current blood pressure management. 09/13/2024 Presence of biventricular automatic cardioverter/def ibrillator [...] recommended to monitor potential cognitive changes. 09/13/2024 HFrEF (heart failure with reduced ejection fraction) (CMS/HCC) (ICD-10 - I50.20) 05/02/2025 Heart failure, unspecified (ICD-10 - I50.9) History of cardiac issues. Recent cardiology follow-up confirmed stability. No new symptoms reported. - Continue current cardiac management. - Follow up with ui software developer in 6 months. 12/12/2024 Dilated cardiomyopathy (CMS/HCC) (ICD-10 - I42.0) [...] recommended to monitor potential cognitive changes. 09/13/2024 LBBB (left bundle branch block) (ICD-10 - I44.7) 09/13/2024 MCI (mild cognitive impairment) (ICD-10 - G31.84) 12/12/2024 HFrEF (heart failure with reduced ejection fraction) ([facility]) (ICD-10 - I50.20) SUMMARY Date [...] background noise, focus on tasks, and follow lzdi-rp-jckd instructions were good. Below average performance noted [...] - Refill Sertraline to be sent to [facility] pharmacy Follow-up Assessment: Patient requests longer interval between appointments due to numerous doctor visits. Plan: - Schedule follow-up appointment in 5 months Disclaimer: This note has been transcribed using speech recognition software and serves as a reflection of the patient's visit. While efforts have been made to ensure accuracy, there may be errors, including funnel coater inaccuracies and misspellings of medication names. This [...] Next Appt Details Provider Name:Stefano Oswald , 10/17/2025 08:30:00 AM, [address] [address], [facility] [address], [place], [address], Insurance Providers Payer Name Payer Address Payer Phone Subscriber Number Group Number Insured Name Patient Relationship to Insured Coverage Start Date Coverage End Date [employer] Medicare Replacement/ Advantage - Hmo [address] [place] [phone] [id number] TATIANNA CELESTE Self - patient is the insured Medical (General) History Medical History History ICD Code Problems: Amnesia Generalized anxiety disorder Recurrent major depression in remission , Major depressive disorder, in remission Hypertension Heart failure Surgical History Surgery Date(Month/Year) Maintenance of automatic cardiac defibri llator (813879479) 12/25/2023 Any surgical history 01/23/1999 Oophorectomy (35083) 02/11/1999 Other 02/11/1999 Tonsilectomy/adenoids 03/09/1968 pacemaker revision 03/04/2024 Hospitalization History Reason Date(Month/Year) pneumonia 04/2024 pleural effusion 03/2024 pacemaker revision 03/04/2024
== END 2025-08-20 08:47 | disposition home or self-care (01) ==
PROVIDERS: PCP Internal Medicine; Visit Provider Nurse Practitioner
DX: M79.661 Pain in right lower leg (principal); M79.662 Pain in left lower leg
CPT/HCPCS: 93922